=== PATIENT | male | born 1950 | race Caucasian/White ===

== ENCOUNTER 2023-11-08 02:59 | Inpatient (IN) | payer OTHER, SELFPAY ==
[2023-11-07 22:26] VITALS: BP 143/82
[2023-11-07 22:29] LABS: Glucose - Point of Care 160 mg/dl (70-99)
--- NOTE | 2023-11-07 22:38 | ED.GENMED ---
History of Present Illness
General
Chief Complaint: Breathing Problem
Source: patient and family
Exam Limitations: none
Time Seen by Provider: 11/07/23 22:36
Nursing documentation reviewed up to this point in time: agreed with
History of Present Illness
History of Present Illness:
73-year-old male presents the emergency room complaining of shortness of breath, an episode of diaphoresis. Son thought this may have been due to his sugar being low.
Past History
Past History
ED Past Medical History: HTN, Hypercholesterolemia, IDDM and Psychiatric (Depression)
ED Past Surgical History: Cardiac (Pacemaker) and Other (Stomach ulcer repair)
Social History
Tobacco: Former smoker
Alcohol: None
Drug: None
Living: with family
Review of Systems
Review of Systems
Allergies reviewed?: Yes
All Other Systems: Not applicable
Constitutional: Reports fever
EENT: Reports no symptoms
Respiratory: Reports trouble breathing
Cardiac: Reports diaphoresis
ABD/GI: Reports no symptoms
: Reports no symptoms
Musculoskeletal: Reports no symptoms
Skin: Reports no symptoms
Neurological: Reports no symptoms
Endocrine: Reports no symptoms
Hematologic/Lymphatic: Reports no symptoms
Psychiatric: Reports no symptoms
Phy Exam
Physical Exam
Physical Exam:
Physical Exam
General: afebrile
Neck: supple. no meningeal signs. normal posterior pharynx
Heart: s1/s2 regular rate and rhythm, no murmur. equal radial
pulses.
HEENT: Pupils equal round reactive to light, EOMI
Lungs: no acute respiratory distress. clear bilaterally
Abdomen: normal bowel sounds. not tender. no CVAT
Neuro: alert and oriented. no focal neurological deficits cranial nerves II through XII intact
Skin: no rash
Psychiatric: well kept. interactive and cooperative
Extremities: no edema. no calf tenderness. negative homans. good distal pulses
Scores
Heart Failure Risk
Heart Failure Risk Score: Not Applicable
Course
Orders/Labs/Results
Orders:
Orders
11/07/23 22:37
Electrocardiogram (*1) Stat
Reason for Study: Other
Other Reason for Exam: chest pain
Cardiac Monitoring- Treatment ONCE
EKG- Treatment ONCE
IV Insert/Care/Rem.- Treatment PRN
O2 Therapy [RESP] Stat
Nasal Cannula Liter Flow: 3 LPM
Titrate/Wean O2 to maintain O2 sat greater than (%): 92
Pulse Ox/cont/shift [RESP] Stat
Quantity: 1
11/07/23 22:38
CR Chest Portable - 1 View Urgent
Comment:
Reason For Exam: short of breath, hypoxia
Reason Study Needs to be Portable: Patient Unstable
11/07/23 23:07
COVID-19 Antigen Urgent
Source: Nasal Swab
Complete Blood Count/With Diff Urgent
Troponin I Urgent
11/08/23 00:27
Comprehensive Metabolic Panel Routine
Comment: REDRAW
Magnesium Routine
11/08/23 00:29
Ipratropium/Albuterol Sulfate [Duoneb] 3 ml INH R NOW STA
Abnormal Lab Results
11/07/23 11/07/23 11/08/23
22:28 23:07 00:27
WBC 11.2 H 10^3/uL
(4.8-10.8)
MPV 11.6 H fL
(7.4-10.4)
Absolute Neuts (auto) 8.5 H 10^3/uL
(1.4-6.5)
Absolute Monos (auto) 0.7 H 10^3/uL
(0.1-0.6)
Neutrophils % 76.1 H %
(42.2-75.2)
Lymphocytes % 17.1 L %
(20.5-51.1)
Sodium 134 L mmol/L
(135-145)
BUN 27 H mg/dl
(9-20)
Glucose 176 H mg/dl
(70-99)
ALT 66 H U/L
(0-50)
POC Glucose 160 H mg/dl
(70-99)
11/07/23 23:07
11/08/23 00:27
Vital Signs
Initial and Last Documented VS:
Initial Vital Signs
Temp Pulse Resp BP Pulse Ox
97.6 F 60 18 143/82 89
11/07/23 22:26 11/07/23 22:26 11/07/23 22:26 11/07/23 22:26 11/07/23 22:26
Last Documented Vital Signs
Temp Pulse Resp BP Pulse Ox
97.6 F 64 19 137/73 98
11/07/23 22:26 11/08/23 01:15 11/08/23 01:15 11/08/23 01:00 11/08/23 01:15
MDM/Problems Addressed
Differential Diagnosis Includes:
COPD exacerbation, pneumonia, CHF
MDM/Problems Addressed:
73-year-old male with hypoxia, suspect COPD. Doubt ACS or PE. Admit to hospitalist.
Chronic conditions affecting care: DM and HTN
Acute Exacerbation and/or Progression of Chronic Illness: DM and HTN
*Radiology
Radiology exam reviewed: preliminary read by ED provider (Chest x-ray no acute findings) and radiology read reviewed (Chest x-ray no acute findings)
*Pulse Oximetry
Patient hypoxic: yes
*EKG
Interpreted by ED Provider?: Yes
EKG Intrepretation Date: 11/08/23
EKG Intrepretation Time: 23:17
Interpretation: abnormal
Comparison EKG: changes noted
Heart Rate: 60
Rate: normal
Rhythm: av sequential
[place]: left axis deviation
Interval: normal interval
QRS Pattern: normal QRS
Ischemia: non-specific ST changes
*Dining Room Host/Hostess Interpretation
Rate: normal
Interpretation: abnormal
Heart Rate: 60
Rhythm: av sequential
*Critical Care Note
Total Time (30-74mins, 75-104mins- exclusive of procedures): 30
comment:
Critical care statement: A total of 30 minutes of critical care time was provided for this patient. This includes management of unstable vital signs, evaluation of the patient at bedside, reviewing the patient's pertinent medical records, discussion
with consultants, review of old EKGs and review of pertinent medical records. This time with separate from time utilized to perform the aforementioned documented procedures
Hypoxia, discussion with pacemaker rep and using pacemaker clinical statistical programmer
Data Reviewed
Review of Other/Old Records Reveals: Discharge Summary (Prior admission in 2021 for COVID and acute kidney injury)
Patient Management
Social determinants of health affecting care: Living situation
Discussion with other providers: Hospitalist and Other ([employer] cash applications representative)
Escalation/DeEscalation of care consider admission/obs:
Admit indicated
Update Note
Update Note:
Discussed with pacemaker rep and reviewed pacemaker clinical statistical programmer, no events, patient atrial paced, occasionally ventricular
ED Attending Note
-
Portions of this chart may have been created with voice recognition software.� Occasional wrong word or��sound alike� substitutions may have occurred due to the inherent limitations of voice recognition software.
Discharge Plan
Departure
Patient Disposition: Admit
Date of Disposition: 11/08/23
Time of Disposition: 01:28
Admit to: Telemetry
Presentation/result/management discussed w/ accepting MD/DO: Hospitalist
Patient with high blood pressure during this ER visit?: Yes
Condition: Good
Discharge Problem:
Acute exacerbation of chronic obstructive pulmonary disease (COPD), Hypoxia
Prescriptions:
No Action
atorvastatin 20 MG tablet
20 mg PO QPM
amiodarone [Pacerone] 200 MG tablet
200 mg PO DAILY
Patient Comments:
Daughter said 20 mg???
levothyroxine 75 MCG tablet
75 mcg PO DAILY
famotidine [Pepcid AC] 20 MG tablet
20 mg PO DAILY
pyridostigmine bromide 180 MG tablet extended release
180 mg PO DAILY
Patient Comments:
Daughter said 18???
insulin aspart U-100 [Novolog FlexPen U-100 Insulin] 300 UNITS/3 ML insulin pen
0 sliding scale dose SC AC
Patient Comments:
150-175 8 units; 176-200 12 units; 201-224 16 units; 225-250 20 units; 251-275 24 units; 276- 28 units
magnesium oxide 400 mg magnesium Tablet
400 mg PO BID Qty: 0
metoprolol succinate 100 mg tablet extended release 24 hr
100 mg PO BID
melatonin 3 mg Tablet
3 mg PO HS
potassium chloride 20 mEq tablet,ER particles/crystals
20 meq PO DAILY
oxybutynin chloride 5 mg tablet extended release 24hr
5 mg PO DAILY
escitalopram oxalate 10 mg tablet
10 mg PO DAILY
Xarelto 20 mg tablet
20 mg PO DAILY
Ozempic 1 mg/dose (4 mg/3 mL) pen injector
4 mg SC TU
midodrine 5 MG tablet
5 mg PO TID@0800,1300,1800
insulin glargine [Lantus Solostar U-100 Insulin] 300 UNITS/3 ML insulin pen
12 units SC HS
Referrals:
UNKNOWN - PT DOES,NOT KNOW [Family Provider] -
Interventions
Interventions:
*Risk Screen - Suicide Last Done: 11/07/23 23:30
*General Assessment Last Done: 11/07/23 22:27
*Neglect/Abuse Screening Last Done: 11/07/23 23:30
ED- Fall Risk Assessment Last Done: 11/07/23 23:10
*ED COVID-19 Vaccine History Last Done: 11/07/23 23:48
ED- Cardiac Assessment Last Done: 11/07/23 23:07
ED- Pulmonary Assessment Last Done: 11/07/23 23:09
Discharge Date and Time
Print Language: SYRIAN
[2023-11-07 23:11] VITALS: BP 136/79
[2023-11-07 23:17] VITALS: BMI 24.9
[2023-11-07 23:57] LABS: COVID-19 Antigen Negative (Negative)
[2023-11-07 23:59] LABS: % Basophils 0.1 % (0-2); % Eosinophils 0.4 % (0-6); % Immature Granulocytes 0.4 % (0-0.5); % Lymphocytes 17.1 % (20.5-51.1); % Monocytes 5.9 % (1.7-9.3); % Neutrophils 76.1 % (42.2-75.2); Absolute Eosinophils 0.1 10^3/uL (0-0.7); Absolute Lymphocytes 1.9 10^3/uL (1.2-3.4); Absolute Monocytes 0.7 10^3/uL (0.1-0.6); Absolute Neutrophils 8.5 10^3/uL (1.4-6.5); Hematocrit 40.4 % (39.0-52.0); Hemoglobin 14.5 g/dL (13.0-18.0); Mean Corp Hgb Conc. 35.9 g/dL (33.0-37.0); Mean Corpuscular Hgb 30.3 pg (27.0-31.0); Mean Corpuscular Volume 84.5 fL (80.0-94.0); Mean Platelet Volume 11.6 fL (7.4-10.4); Nucleated Red Blood Cells % 0 % (-); Platelet Count 188 10^3/uL (130-400); Red Blood Cell Count 4.78 10^6/uL (4.70-6.10); Red Cell Dist. Width 14.1 % (11.5-14.5); White Blood Cell Count 11.2 10^3/uL (4.8-10.8)
[2023-11-08] VITALS (12 sets, daily range): BP systolic 81–160; BP diastolic 58–83; PULSE 63–101; BMI 23.8
[2023-11-08 00:28] LABS: Troponin I < 0.012 ng/ml
[2023-11-08] MEDS: DUONEB 3 ML INH ×6 (00:36→19:27)
[2023-11-08 01:13] LABS: ALT (SGPT) 66 U/L (0-50); AST (SGOT) 40 U/L (17-59); Albumin 3.8 g/dl (3.5-5.0); Alkaline Phosphatase 86 U/L (38-126); Blood Urea Nitrogen 27 mg/dl (9-20); Calcium 9.2 mg/dl (8.4-10.2); Carbon Dioxide 22 mmol/L (22-30); Chloride 105 mmol/L (98-107); Estimated Creatinine Clearance 53 ml/min; Glucose 176 mg/dl (70-99); Magnesium 1.8 mg/dl (1.6-2.3); Potassium 4.5 mmol/L (3.5-5.1); Sodium 134 mmol/L (135-145); Total Bilirubin 0.7 mg/dl (0.2-1.3); Total Protein 6.5 g/dl (6.3-8.2); eGFR > 60.00
--- NOTE | 2023-11-08 02:36 | HPS.HSE ---
Family Physician
-
Family Physician: NOT KNOW UNKNOWN - PT DOES
Chief Complaint
-
Low BG at home , Hypoxia at ER
History of Present Illness
73M Filipino speaker, with Son who trasnlates HX IDDM, Hypothyroid, HTN seen at ER for evalaution of hypoglycemia ;
- BG dropped to 70s
- report normal Insulin before dinner with Ozempic or Mounjaro
- At ER, BG was 160
Noted POx 89 % on RA
- report SoB at ER
- POx 93 on 3L
- Cough
- SoB
Medical History
Past Medical History
Past Medical History: Reports Other
Additional Past Medical History:
IDDM
Hypothyroidism.
Essential hypertension.
Myasthenic gravis
Anxiety/ Depression.
Hyperlipidemia.
Gastroesophageal reflux disease.
Past Surgical History: Reports Cardiac (pacemaker ) and Other (gastric ulcer repair)
Social History
Tobacco: Former Smoker
Alcohol: None
Living: With Family
Family History
Family History: Not pertinent
Allergies / Home Medications
Allergies reflects when Allergies were last updated in [employer].
Home Medications with original date entered in [employer]
Allergy/Medication List:
Allergies
Allergy/AdvReac Type Severity Reaction Status Date / Time
No Known Allergies Allergy Unverified 05/25/21 14:04
Home Medications
amiodarone 200 mg tablet (Pacerone) 200 mg PO DAILY Heart disease/condition 05/25/21
atorvastatin 20 mg tablet 20 mg PO QPM High cholesterol 05/25/21
famotidine 20 mg tablet (Pepcid AC) 20 mg PO DAILY Gastrointestinal issue 05/25/21
insulin aspart U-100 100 unit/mL (3 mL) subcutaneous pen (Novolog FlexPen U-100 Insulin aspart) 0 sliding scale dose SC AC Diabetes 05/25/21
levothyroxine 75 mcg tablet 75 mcg PO DAILY Thyroid 05/25/21
magnesium oxide 400 mg PO BID Supplement ##0 05/25/21
pyridostigmine bromide 180 mg tablet,extended release 180 mg PO DAILY 05/25/21
escitalopram oxalate 10 mg tablet 10 mg PO DAILY 11/07/23
insulin glargine 100 unit/mL (3 mL) subcutaneous pen (Lantus Solostar U-100 Insulin) 12 units SC HS Diabetes 11/07/23
melatonin 3 mg tablet 3 mg PO HS 11/07/23
metoprolol succinate 100 mg tablet,extended release 24 hr 100 mg PO BID 11/07/23
midodrine 5 mg tablet 5 mg PO TID@0800,1300,1800 11/07/23
oxybutynin chloride 5 mg tablet,extended release 24 hr 5 mg PO DAILY 11/07/23
potassium chloride 20 mEq tablet,extended release(part/cryst) 20 meq PO DAILY 11/07/23
rivaroxaban 20 mg tablet (Xarelto) 20 mg PO DAILY 11/07/23
semaglutide 1 mg/dose (4 mg/3 mL) subcutaneous pen injector (Ozempic) 4 mg SC TU 11/07/23
Review of Systems
-
Constitutional: Reports No Symptoms
EENT: Reports No Symptoms, See HPI and Other (POx 89 on RA )
Cardiac: Reports No Symptoms
Abdomen/GI: Reports No Symptoms
: Reports No Symptoms
Musculoskeletal: Reports No Symptoms
Skin: Reports No Symptoms
Neurological: Reports No Symptoms
Endocrine: Reports See HPI and Other (BG in 70 at home )
Hematologic/Lymphatic: Reports No Symptoms
Psych: Reports No Symptoms
Physical Exam
Vital Signs
Vital Signs
Temp Pulse Resp BP Pulse Ox
97.6 F 64 19 137/73 98
11/07/23 22:26 11/08/23 01:15 11/08/23 01:15 11/08/23 01:00 11/08/23 01:15
Physical Exam
General: Well Developed, Well Nourished and No Apparent Distress
HEENT: NormoCephalic, Moist mucous membranes and Atraumatic
Respiratory: Clear
Cardiac: S1/S2 and Regular Rhythm; No Murmur or Rub
GI: Soft, Non Tender, Non Distended and Normal Bowel Sounds; No Organomegaly
Rectal: Deferred by Provider
Musculoskeletal: No Clubbing, No Cyanosis and No Edema
Skin: No Rash
Neuro: Nonfocal/grossly intact
Laboratory Results
-
11/07/23 23:07
11/08/23 00:27
Laboratory Results
Total Bilirubin 0.7 mg/dl (0.2-1.3) 11/08/23 00:27
AST 40 U/L (17-59) 11/08/23 00:27
ALT 66 U/L (0-50) H 11/08/23 00:27
Alkaline Phosphatase 86 U/L (38-126) 11/08/23 00:27
Troponin I < 0.012 ng/ml 11/07/23 23:07
Data Reviewed
-
Diagnostic Radiology: Report Reviewed by me
Medical Tests (Nuc Med, Echo, EKG etc): Report Reviewed by me
Lab Data: Labs Reviewed by me
Old Records: Reviewed
Impression/Plan
-
Reviewed VS: Afebrile HR 60 Normotensive RR 19 POx 89 on RA --> 93 on 3 L
Data
WCC 11.2
Na 134
BUN 27
Cr 1.2
eGFR > 60
BG 176
ALT 66
NEG TPNI
NEG Covid
CXR
No acute cardiopulmonary process.
EKG report
AV paced rhythm
LEFT AXIS DEVIATION
NON-SPECIFIC INTRA-VENTRICULAR CONDUCTION BLOCK
MINIMAL VOLTAGE CRITERIA FOR LVH, MAY BE NORMAL VARIANT ( Rubio product )
NONSPECIFIC T WAVE ABNORMALITY
ABNORMAL ECG
WHEN COMPARED WITH ECG OF 25-MAY-2021 14:19,
ELECTRONIC ATRIAL PACEMAKER HAS REPLACED SINUS RHYTHM
QRS DURATION HAS DECREASED
T WAVE INVERSION NO LONGER EVIDENT IN ANTERIOR LEADS
QT HAS SHORTENED
Last hospitalist admission: 05/25/21 - 06/01/21 PDxs:
1. Hypothermia, non anion gap metabolic acidosis and dizziness secondary to hypoglycemia due to decreased oral intake from COVID infection and concurrent insulin use.
2. Acute hypoxemic respiratory failure due to COVID pneumonia in an unvaccinated host.
3. Orthostatic hypotension.
4. Acute kidney injury.
5. Mild hyponatremia.
6. Hyperkalemia due to potassium supplementation.
ASSESSMENT & PLAN
Acute hypoxic RI of uncertain etiology : DEVAN ?
- clinically not bronchospastic
- unremarkable CXR
- NEG Covid
- NEG TPNI
- check pro BNP
- Cont DuoNeb qid and PRN
- No definitive indication for Steroids
Hypoglycemia at Home
BG 160 at ER
- cont CONCRETE FLOATER Lantus/Aspart
- Held Ozempic
- add ISS low
HLD on Atorvastatin
Hypothyroidism
-Continue levothyroxine
HX essential Hypertension
AV paced rhythm
- cont Amiodarone and Metoprolol
HX Myasthenia Gravis on Pyridostigmine
Midodrine dependent chr hypotension
DVT Px: on Xarelto
Code: full code
IP TLM
[2023-11-08 04:07] LABS: Glucose - Point of Care 141 mg/dl (70-99)
[2023-11-08] MEDS: SYNTHROID 75 MCG PO (04:28)
--- NOTE | 2023-11-08 04:30 | PTCARENOTE ---
Received patient from ED via stretcher. Patient ambulated from stretcher to bed with assistance. Patient is primarily Argentine speaking, able to complete admission with language line scowman. AAOx2, patient stated it was October and that he did not
know the year. No current complaints of pain. Oriented patient to room and placed call wiggins within reach.
[2023-11-08 07:18] LABS: Glucose - Point of Care 169 mg/dl (70-99)
[2023-11-08] MEDS: PEPCID 20 MG PO (09:08)
[2023-11-08] MEDS: MESTINON 60 MG PO ×3 (09:08→21:49)
[2023-11-08] MEDS: LEXAPRO 10 MG PO (09:09)
[2023-11-08] MEDS: TOPROL XL 100 MG PO ×2 (09:09→20:11)
[2023-11-08] MEDS: PACERONE 200 MG PO (09:10)
[2023-11-08] MEDS: XARELTO 20 MG PO (10:27)
[2023-11-08] MEDS: ProAmatine 5 MG PO ×3 (10:27→17:00)
[2023-11-08] MEDS: NOVOLOG FLEXPEN-LOW RESISTANCE 1 UNITS SC (10:28)
[2023-11-08 10:56] LABS: Hematocrit 47.3 % (39.0-52.0); Hemoglobin 15.8 g/dL (13.0-18.0); Mean Corp Hgb Conc. 33.4 g/dL (33.0-37.0); Mean Corpuscular Hgb 29.3 pg (27.0-31.0); Mean Corpuscular Volume 87.8 fL (80.0-94.0); Mean Platelet Volume 12.2 fL (7.4-10.4); Platelet Count 223 10^3/uL (130-400); Red Blood Cell Count 5.39 10^6/uL (4.70-6.10); White Blood Cell Count 11.5 10^3/uL (4.8-10.8)
--- NOTE | 2023-11-08 11:27 | W.PN.UPDATE ---
Update Note
Progress Note Update
Acute hypoxic RI of uncertain etiology : DEVAN ?, former smoker, no wheezing on exam
- clinically not bronchospastic
- unremarkable CXR
- NEG Covid
- NEG TPNI
- check pro BNP
- Cont DuoNeb qid and PRN
- Pulm consulted
- STOP Bank at least 4 (male, age, neck circx, htn) will need to follow up with sleep medicine on dc.
- Can consider checking an overnight pulse ox
Fall, was dizzy
- Likely related to hypoglycemia
- EKG Atrial paced
- Check orthostatics
- Head strike +, no focal neuro defecits
- Check CT brain to r/o bleed as on AC
Hypoglycemia at Home
BG 160 at ER
- cont MANAGER BILINGUAL Lantus/Aspart
- Held Ozempic
- add ISS low
HLD on Atorvastatin
Hypothyroidism
-Continue levothyroxine
HX essential Hypertension
AV paced rhythm
- cont Amiodarone and Metoprolol
HX Myasthenia Gravis on Pyridostigmine
Midodrine dependent chr hypotension
--- NOTE | 2023-11-08 11:28 | CON.PUL ---
Consultation
Consultation Request
Date/Time Consultation Requested: 11/07
Date/Time Consultation Performed: 11/07
Reason for Consultation: hypoxia
Medical History
-
History of Present Illness:
73-year-old [place]ian male with history of coronary disease, DE, atrial fibrillation on Xarelto therapy, diabetes, presents with lethargy and found to have blood sugar of 70. He typically lives in [facility] and sees his physicians in
[place]. However he was staying with his son locally and was brought to [facility]. Upon arrival, he was afebrile, pulse 60, breathing at 16-18, blood pressure 143/82, 89%. ED records reviewed and the ED exam was normal. He was
admitted for hypoxia and acute COPD exacerbation. We are asked to see him because of hypoxia. Patient denies any shortness of breath, chest pain, cough, lightheadedness, dizziness. His son was also able to provide history by phone and confirm the
above. He has never been on oxygen. He has seen a spikemaking supervisor in the past but sees them every couple years and has had routine x-rays. Son cannot recall why he is seeing the pulmonary doctor. Patient also sees cardiology in the city.
.
PMH: Diabetes, hypertension, hyperlipidemia, history of coronary disease with heart attack, atrial fibrillation on anticoagulation, history of pacemaker. History of hypothyroidism, myasthenia gravis, GERD
Past Medical History
Past Medical History: None (See above)
Past Surgical History: None (See above)
Social History
Tobacco: Former Smoker ([id number], quit 20+ years ago)
Alcohol: None
Drug: None
Personal:
Living: With Family
Employment: Retired (Worked in a [employer] in [place]. [place] been [place] the [place] 19 years)
Family History
Family History: Other (Negative for lung disease, blood clots, lung cancer)
Allergies / Home Medications
Allergies
Allergy/AdvReac Type Severity Reaction Status Date / Time
No Known Allergies Allergy Unverified 05/25/21 14:04
Home Medications
�Medication �Instructions �Recorded �Confirmed �Last Taken �Type
amiodarone 200 mg tablet (Pacerone) 200 mg PO DAILY Heart 05/25/21 11/07/23 Unknown History
disease/condition
atorvastatin 20 mg tablet 20 mg PO QPM High cholesterol 05/25/21 11/07/23 Unknown History
famotidine 20 mg tablet (Pepcid AC) 20 mg PO DAILY Gastrointestinal 05/25/21 11/07/23 Unknown History
issue
insulin aspart U-100 100 unit/mL 0 sliding scale dose SC AC Diabetes 05/25/21 11/07/23 Unknown History
(3 mL) subcutaneous pen (Novolog
FlexPen U-100 Insulin aspart)
levothyroxine 75 mcg tablet 75 mcg PO DAILY Thyroid 05/25/21 11/07/23 Unknown History
magnesium oxide 400 mg PO BID Supplement ##0 05/25/21 11/07/23 Unknown History
pyridostigmine bromide 180 mg 180 mg PO DAILY myasthenia gravis 05/25/21 11/07/23 Unknown History
tablet,extended release
escitalopram oxalate 10 mg tablet 10 mg PO DAILY Depression 11/07/23 11/07/23 Unknown History
insulin glargine 100 unit/mL (3 12 units SC HS Diabetes 11/07/23 11/07/23 Unknown History
mL) subcutaneous pen (Lantus
Solostar U-100 Insulin)
melatonin 3 mg tablet 3 mg PO HS Sleep 11/07/23 11/07/23 Unknown History
metoprolol succinate 100 mg 100 mg PO BID Blood Pressure 11/07/23 11/07/23 Unknown History
tablet,extended release 24 hr
midodrine 5 mg tablet 5 mg PO TID@0800,1300,1800 Blood 11/07/23 11/07/23 Unknown History
Pressure
oxybutynin chloride 5 mg 5 mg PO DAILY Urinary Issue 11/07/23 11/07/23 Unknown History
tablet,extended release 24 hr
potassium chloride 20 mEq 20 meq PO DAILY Electrolyte 11/07/23 11/07/23 Unknown History
tablet,extended release(part/cryst) Repletion
rivaroxaban 20 mg tablet (Xarelto) 20 mg PO DAILY Blood Clot 11/07/23 11/07/23 Unknown History
Prevention/Tx
semaglutide 1 mg/dose (4 mg/3 mL) 4 mg SC TU Diabetes 11/07/23 11/07/23 11/06/23 History
subcutaneous pen injector (Ozempic)
Review of Systems
-
History Source: Family
All other systems: Negative unless noted (Through court interpreter)
Vitals / Labs / Diagnostic Testing
Vital Signs
Temp Pulse Resp BP Pulse Ox
97.9 F 78 18 129/83 93
11/08/23 07:35 11/08/23 09:09 11/08/23 07:40 11/08/23 09:09 11/08/23 11:19
Lab Data
11/08/23 10:20
Diagnostic Testing:
Physical Exam
-
HEENT: Normocephalic and Anicteric
Cardiovascular: S1/S2, Irregular Rhythm, Murmur (n), Rub (n), Peripheral Edema (n) and Calf Tenderness (n)
Respiratory: Wheeze (n), Rales (Mild bibasilar), Rhonchi (n) and Non-Labored Respirations
GI: Soft, Non Distended and Non Tender
Neurology: Awake, Alert and No Motor Deficits (Observed ambulating from the stretcher to the bed without difficulty)
Skin: Other (Few scattered bruises, no clubbing or cyanosis)
General: Comfortable
Assessment
-
73-year-old male with history of diabetes, atrial fibrillation on anticoagulation, coronary disease, smoking history presents with lethargy, found to have a blood sugar of 70 at home. We are asked to comment on patient's hypoxia
Acute hypoxic respiratory insufficiency, 88% room air
Mild crackles on exam
Possible interstitial changes per chest x-ray (my review)
Questionable diaphragmatic calcification (my review)
Hypoglycemia, blood sugar 70
Was 160 in the ED
History of atrial fibrillation on Xarelto
On amiodarone therapy
Recent fall
Conditions present prior to admission
History of myasthenia gravis (details unclear)
Hypertension/hyperlipidemia
Diabetes
Hypothyroidism
History of atrial fibrillation
Pacemaker in place
History of coronary disease, DE (per son)
GERD with gastric ulcer repair in the past (details unclear)
30+ pack-year history of smoking, quit around 2003
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
Plans/Recs
At this time, patient appears to be comfortable and is without complaints. Son denies any issues with shortness of breath, cough, wheezing. Apparently patient has seen pulmonary in the past in [place] but for unclear reasons. Smoking history
noted. Patient not on any inhalers.
Noted to be hypoxic requiring oxygen, 88% on room air
Mild crackles on exam noted. Chest x-ray per my review suggests mild interstitial disease with possible diaphragmatic calcifications
There may be an occupational exposure history
Moving forward
Given lack of symptoms, workup can be deferred as outpatient
Given that he is on amiodarone therapy, we will check full PFT
Will try to coordinate if possible in the next day or 2 with Zambian speaking respiratory therapist
If not able to get full PFT, will consider spirometry.
Will require full PFT and likely outpatient CT chest at some point given crackles, hypoxia and amiodarone therapy
Check ambulatory saturation
Of note, head CT without acute findings
Patient will require PT/OT evaluation
Reviewed with patient, also reviewed with son by phone
We will follow
[2023-11-08 11:52] LABS: Glucose - Point of Care 270 mg/dl (70-99)
[2023-11-08 11:56] LABS: NT-proBNP 536 pg/ml
[2023-11-08 12:05] LABS: Blood Urea Nitrogen 23 mg/dl (9-20); Carbon Dioxide 26 mmol/L (22-30); Chloride 98 mmol/L (98-107); Estimated Creatinine Clearance 58 ml/min; Glucose 205 mg/dl (70-99); Potassium 4.7 mmol/L (3.5-5.1); Sodium 135 mmol/L (135-145); eGFR > 60.00
[2023-11-08] MEDS: KCL 20 MEQ PO (12:56)
[2023-11-08] MEDS: NOVOLOG FLEXPEN-LOW RESISTANCE 3 UNITS SC ×2 (12:56→17:01)
[2023-11-08 14:02] LABS: Glycohemoglobin (HgbA1c) 8.3 % (4.0-5.6)
[2023-11-08] MEDS: FLOMAX 0.4 MG PO (16:28)
[2023-11-08 16:40] LABS: Glucose - Point of Care 260 mg/dl (70-99)
[2023-11-08] MEDS: LIPITOR 20 MG PO (17:00)
[2023-11-08 21:20] LABS: Glucose - Point of Care 231 mg/dl (70-99)
[2023-11-08] MEDS: MELATONIN 3 MG PO (21:49)
[2023-11-08] MEDS: LANTUS 0.06 UNITS SC (21:49)
[2023-11-09] VITALS (7 sets, daily range): BP systolic 77–120; BP diastolic 52–70; PULSE 61–77; BMI 23.7
[2023-11-09] MEDS: SYNTHROID 75 MCG PO (06:07)
[2023-11-09] MEDS: DUONEB 3 ML INH ×4 (07:42→19:27)
[2023-11-09 08:08] LABS: Glucose - Point of Care 183 mg/dl (70-99)
[2023-11-09] MEDS: NOVOLOG FLEXPEN-LOW RESISTANCE 1 UNITS SC (08:34)
[2023-11-09] MEDS: XARELTO 20 MG PO (08:34)
[2023-11-09] MEDS: ProAmatine 5 MG PO ×3 (08:36→17:24)
[2023-11-09] MEDS: KCL 20 MEQ PO (08:37)
[2023-11-09] MEDS: FLOMAX 0.4 MG PO (08:37)
[2023-11-09] MEDS: PACERONE 200 MG PO (08:37)
[2023-11-09] MEDS: PEPCID 20 MG PO (08:37)
[2023-11-09] MEDS: MESTINON 60 MG PO ×3 (08:37→21:28)
[2023-11-09] MEDS: LEXAPRO 10 MG PO (08:37)
[2023-11-09] MEDS: TOPROL XL PO (08:42)
--- NOTE | 2023-11-09 11:45 | W.PN.HOSP.TC ---
Today's Communication/Plan
-
Overnight pulse oximetry
Exercise pulse oximetry on room air
If less than 88% then will need home oxygen
Will need outpatient pulmonary follow-up for PFTs and cardiology follow-up determination depending on PFT findings in terms of the amio
Assessment / Plan
Assessment / Plan
Acute hypoxic RI of uncertain etiology : DEVAN ?, former smoker, no wheezing on exam
-Potentially amiodarone induced lung fibrosis. Will need outpatient PFTs to make this diagnosis per pulmonary. Will continue amiodarone for now though until it can be confirmed
- clinically not bronchospastic
- unremarkable CXR
- NEG Covid
- NEG TPNI
- check pro BNP
- Cont DuoNeb qid and PRN
- Pulm consulted
- STOP Bank at least 4 (male, age, neck circx, htn) will need to follow up with sleep medicine on dc.
- Can consider checking an overnight pulse ox
Fall, was dizzy
- Likely related to hypoglycemia
- EKG Atrial paced
- Check orthostatics
- Head strike +, no focal neuro defecits
- Check CT brain to r/o bleed as on AC
Hypoglycemia at Home
BG 160 at ER
- cont TEST ENGINEERING MANAGER Lantus/Aspart
- Held Ozempic
- add ISS low
HLD on Atorvastatin
Hypothyroidism
-Continue levothyroxine
HX essential Hypertension
AV paced rhythm
- cont Amiodarone and Metoprolol
HX Myasthenia Gravis on Pyridostigmine
Midodrine dependent chr hypotension
Anticipated Discharge: 24 - 48 hours
Subjective/Interval History
-
Date of Service: November 09, 2023
Seen and examined. No new complaints. No acute overnight events.
Resting bed comfortably. Shortness of breath improving.
Per nursing overnight was 95% for most of the night. However this morning dropped down to 86% and now is back on 2 L nasal cannula at a SpO2 of 94%.
Objective Data
-
Vital Signs:
Vital Signs
Temp Pulse Resp BP Pulse Ox
97.9 F 63 18 96/62 95
11/09/23 11:35 11/09/23 11:35 11/09/23 11:35 11/09/23 11:35 11/09/23 11:35
I&O
11/08/23 11/09/23 11/10/23
06:59 06:59 06:59
Intake Total 480 / 480 1080 / 1080
Output Total 325 / 325 720 / 720
Balance 155 / 155 360 / 360
[2023-11-09 11:58] LABS: Glucose - Point of Care 224 mg/dl (70-99)
[2023-11-09] MEDS: NOVOLOG FLEXPEN-LOW RESISTANCE 2 UNITS SC ×2 (12:50→17:24)
--- NOTE | 2023-11-09 16:12 | W.PN.PUL3 ---
Today's Communication / Plan
-
Check full PFT on 11/10 (with Wilma, resp therapist, speaks [place]ayan)
Check nocturnal oximetry
Will likely require home oxygen at time of discharge
Outpatient pulmonary follow-up
Assessment
-
73-year-old male with history of diabetes, atrial fibrillation on anticoagulation, coronary disease, smoking history presents with lethargy, found to have a blood sugar of 70 at home. We are asked to comment on patient's hypoxia
Acute hypoxic respiratory insufficiency, 88% room air
Mild crackles on exam
Possible interstitial changes per chest x-ray (my review)
Questionable diaphragmatic calcification (my review)
Hypoglycemia, blood sugar 70
Was 160 in the ED
History of atrial fibrillation on Xarelto
On amiodarone therapy
Recent fall
Conditions present prior to admission
History of myasthenia gravis (details unclear)
Hypertension/hyperlipidemia
Diabetes
Hypothyroidism
History of atrial fibrillation
Pacemaker in place
History of coronary disease, [place] (per son)
GERD with gastric ulcer repair in the past (details unclear)
30+ pack-year history of smoking, quit around 2003
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
Plans/Recs
At this time, patient appears to be comfortable and is without complaints. Son denies any issues with shortness of breath, cough, wheezing. Apparently patient has seen pulmonary in the past in [place] but for unclear reasons. Smoking history
noted. Patient not on any inhalers.
Noted to be hypoxic requiring oxygen, 88% on room air
Ambulatory saturation after ambulating 25 feet 88%
Mild crackles on exam noted. Chest x-ray per my review suggests mild interstitial disease with possible diaphragmatic calcifications
There may be an occupational exposure history
Chest exam is slightly improved today
He does qualify for home oxygen
Moving forward
Given lack of symptoms, workup can be deferred as outpatient
Given that he is on amiodarone therapy, we will check full PFT
Will try to coordinate if possible in the next day or 2 with [place] speaking respiratory therapist
If not able to get full PFT, will consider spirometry.
Will require full PFT and likely outpatient CT chest at some point given crackles, hypoxia and amiodarone therapy
Check ambulatory saturation, 88% on RA
nocturnal oximetry
Of note, head CT without acute findings
Patient will require PT/OT evaluation
Subjective Data
-
Date of Service:
Date of Service: November 09, 2023
Subjective:
Patient is without complaints. Feels breathing has improved. Has mild cough but no chest pain
Objective Data
Data Reviewed
Vital Signs / I&O / Oxygen:
Vital Signs
Temp Pulse Resp BP Pulse Ox
97.9 F 60 14 119/64 97
11/09/23 11:35 11/09/23 15:25 11/09/23 15:25 11/09/23 12:52 11/09/23 15:25
Intake and Output
11/08/23 11/09/23 11/10/23
06:59 06:59 06:59
Intake Total 480 / 480 1080 / 1080
Output Total 325 / 325 720 / 720
Balance 155 / 155 360 / 360
SaO2 97
Nasal Cannula flow liters per 1
minute
Physical Exam
General: Comfortable
HEENT: Normocephalic and Anicteric
Cardiovascular: S1-S2, Regular Rhythm, Murmur (n) and Rub (n)
Respiratory: Wheeze (n), Crackles (Minimal right base), Rhonchi (n), Non-Labored Respirations and Stridor (n)
GI: Soft, Non Distended and Non Tender
Neurology: Awake, Alert and No Motor Deficits (Able to sit up without assistance)
Skin: Jaundice (n) and Rash (n)
Labs/Micro/Reports
Lab Data
11/08/23 10:20
11/08/23 10:20
Microbiology
11/08/23 10:13 Nose MRSA Screen - Final
No Methicillin Resistant Staphylococcus aureus isolated.
[2023-11-09 17:24] LABS: Glucose - Point of Care 204 mg/dl (70-99)
[2023-11-09] MEDS: LIPITOR 20 MG PO (17:24)
[2023-11-09] MEDS: TOPROL XL 100 MG PO (20:18)
[2023-11-09 21:14] LABS: Glucose - Point of Care 195 mg/dl (70-99)
[2023-11-09] MEDS: LANTUS 0.06 UNITS SC (21:27)
[2023-11-09] MEDS: MELATONIN 3 MG PO (21:28)
[2023-11-09] MEDS: TYLENOL 650 MG PO (23:16)
[2023-11-10] VITALS (7 sets, daily range): BP systolic 69–132; BP diastolic 46–82; PULSE 61–76; BMI 23.8
[2023-11-10] MEDS: SYNTHROID 75 MCG PO (04:04)
[2023-11-10] MEDS: DUONEB 3 ML INH ×4 (07:30→20:16)
[2023-11-10 07:37] LABS: Glucose - Point of Care 207 mg/dl (70-99)
[2023-11-10] MEDS: NOVOLOG FLEXPEN-LOW RESISTANCE 2 UNITS SC ×3 (08:33→18:34)
[2023-11-10] MEDS: FLOMAX 0.4 MG PO (08:35)
[2023-11-10] MEDS: ProAmatine 5 MG PO ×3 (08:35→18:34)
[2023-11-10] MEDS: KCL 20 MEQ PO (08:36)
[2023-11-10] MEDS: TOPROL XL 100 MG PO ×2 (08:36→20:39)
[2023-11-10] MEDS: XARELTO 20 MG PO (08:37)
[2023-11-10] MEDS: PEPCID 20 MG PO (08:37)
[2023-11-10] MEDS: LEXAPRO 10 MG PO (08:37)
[2023-11-10] MEDS: MESTINON 60 MG PO ×3 (08:37→21:32)
[2023-11-10] MEDS: PACERONE 200 MG PO (08:37)
[2023-11-10 11:29] LABS: Glucose - Point of Care 246 mg/dl (70-99)
--- NOTE | 2023-11-10 12:49 | W.PN.PUL3 ---
Today's Communication / Plan
-
Check full PFT on 11/10 (with Wilma, resp therapist, speaks Irish)
Continue DuoNebs with prn doses in between
Will likely require home oxygen at time of discharge
Outpatient pulmonary follow-up
Assessment
-
73-year-old male with history of diabetes, atrial fibrillation on anticoagulation, coronary disease, smoking history presents with lethargy, found to have a blood sugar of 70 at home. We are asked to comment on patient's hypoxia
Acute hypoxic respiratory insufficiency, 88% room air, now 96% on 3L/min NC
Mild crackles on exam
Possible interstitial changes per chest x-ray
Questionable diaphragmatic calcification
Hypoglycemia, blood sugar 70
Was 160 in the ED
History of atrial fibrillation on Xarelto
On amiodarone therapy
Recent fall
Conditions present prior to admission
History of myasthenia gravis (details unclear)
Hypertension/hyperlipidemia
Diabetes
Hypothyroidism
History of atrial fibrillation
Pacemaker in place
History of coronary disease, [place] (per son)
GERD with gastric ulcer repair in the past (details unclear)
30+ pack-year history of smoking, quit around 2003
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
Plans/Recs
At this time, patient appears to be comfortable and is without complaints. Per Dr. Castillo, son denies any issues with shortness of breath, cough, wheezing. Apparently patient has seen pulmonary in the past in [place] but for unclear reasons.
Smoking history noted. Patient not on any inhalers.
Noted to be hypoxic requiring oxygen, 88% on room air
Ambulatory saturation after ambulating 25 feet 88%
Mild crackles on exam noted per Dr. Castillo, now with coarse BS heard b/l/. Chest x-ray per my review suggests mild interstitial disease with possible diaphragmatic calcifications
There may be an occupational exposure history
He does qualify for home oxygen
Moving forward
Given lack of symptoms, workup can be deferred as outpatient
Given that he is on amiodarone therapy, we will check full PFT - pending tomorrow with Irish speaking respiratory therapist
If not able to get full PFT, will consider spirometry.
Will require full PFT and likely outpatient CT chest at some point given crackles, hypoxia and amiodarone therapy
Check ambulatory saturation, 88% on RA
nocturnal oximetry WNL overnight from 11/08 - 11/10/2023 with time SpO2 <89% of 1 min, 14 seconds
Of note, head CT without acute findings
Patient will require PT/OT evaluation
We will continue to follow.
Total time spent today was 35 minutes for this encounter. Time includes reviewing laboratory test/imaging results, reviewing pertinent medical records, obtaining and reviewing medical history, performing an appropriate exam, ordering medications,
tests and procedures. Time also includes documentation of this encounter, coordinating patient care and communicating with other healthcare professionals. Total time does not include separately billed tests performed on this date of service.
Subjective Data
-
Date of Service:
Date of Service: November 10, 2023
Chief Complaint: Pulmonary Follow Up
Subjective:
NOX done yesterday showing no need for O2 with sleep (SpO2 <89% 1 min, 14 secs). PFT pending for tomorrow. He is on 3 L/min nasal cannula currently in no acute distress. Currently denies headache, chest pain, fevers or chills.
Review of Systems
General: Other (Negative unless mentioned above)
Objective Data
Data Reviewed
Vital Signs / I&O / Oxygen:
Vital Signs
Temp Pulse Resp BP Pulse Ox
98.2 F 72 16 121/67 96
11/10/23 11:12 11/10/23 12:20 11/10/23 11:21 11/10/23 12:20 11/10/23 12:14
Intake and Output
11/09/23 11/10/23 11/11/23
06:59 06:59 06:59
Intake Total 1080 / 1080 1320 / 1320
Output Total 720 / 720 250 / 250
Balance 360 / 360 1070 / 1070
SaO2 96
Nasal Cannula flow liters per 2
minute
Physical Exam
General: Respiratory Distress (Negative) and Comfortable
HEENT: Normocephalic and Anicteric
Cardiovascular: S1-S2, Murmur (n), Rub (n) and Peripheral Edema (Negative)
Respiratory: Wheeze (n), Rhonchi (n), Non-Labored Respirations, Stridor (n) and Other (Coarse breath sounds heard bilaterally)
GI: Soft, Non Distended, Non Tender and Normal Bowel Sounds
Neurology: Awake, Alert and No Motor Deficits (Able to sit up without assistance)
Skin: Warm, Dry, Jaundice (n) and Rash (n)
Labs/Micro/Reports
Lab Data
11/08/23 10:20
11/08/23 10:20
Microbiology
11/08/23 10:13 Nose MRSA Screen - Final
No Methicillin Resistant Staphylococcus aureus isolated.
[2023-11-10] MEDS: LASIX 20 MG IV (14:44)
[2023-11-10 16:50] LABS: Glucose - Point of Care 252 mg/dl (70-99)
--- NOTE | 2023-11-10 16:51 | CM ---
biodiesel operations manager reviewed patient's chart and met with patient and patient lives with his spouse in [facility] in a 3 story home with 5 steps to enter, patient reports he is independent with adl's and uses a walker occasionally with
ambulation, patient did not require oxygen at home, per son patient visiting nurses in past and patient may benefit from VN services again, patient needs home oxygen evaluation.
PCP: Dr. Cali
Plan; Home with spouse, needs home oxygen evaluation and possibly home care at discharge.
--- NOTE | 2023-11-10 17:47 | W.PN.HOSP.TC ---
Today's Communication/Plan
-
Lasix 20 mg IV.
Attempt to wean off oxygen baseline
Increase activity
Assessment / Plan
Assessment / Plan
Impression:*
Acute hypoxic respiratory insufficiency with pulse ox of 88% on room air.
? CHF/preserved EF with mild pulmonary edema/vascular congestion on chest x-ray.
Symptomatic hypoglycemia blood glucose of 70 upon presentation.
Paroxysmal atrial fibrillation
Anticoagulation with Xarelto
Conditions prior to admission:
Myasthenia gravis?
Essential hypertension
Dyslipidemia
IDDM.
Hypothyroidism on replacement.
Paroxysmal atrial fibrillation/sick sinus syndrome with pacemaker in place.
CAD with history of [place]
GERD.
Former smoker 30+ year
Occupational exposure
Plan
Acute hypoxic RI of uncertain etiology : DEVAN ?, former smoker, no wheezing on exam
-Potentially amiodarone induced lung fibrosis. Will need outpatient PFTs to make this diagnosis per pulmonary. Will continue amiodarone for now though until it can be confirmed
- clinically not bronchospastic
-Chest x-ray with mild congestion
-Mildly elevated pro CHF BNP.
Echocardiogram 11/09: Normal biventricular size and systolic function without regional wall motion abnormalities
Dilated aortic root at 4.9 cm.
Given all of above will provide single dose of IV Lasix and 40 mg with attempt to wean off O2
- NEG Covid
- NEG TPNI
- Cont DuoNeb qid and PRN
- STOP Bank at least 4 (male, age, neck circx, htn) will need to follow up with sleep medicine on dc.
- Can consider checking an overnight pulse ox
Fall, was dizzy
- Likely related to hypoglycemia
- EKG Atrial paced
- Check orthostatics
- Head strike +, no focal neuro defecits
- Check CT brain to r/o bleed as on AC
Hypoglycemia at Home
BG 160 at ER
- cont MOTORCY[employer] FINAL INSPECTOR Lantus/Aspart
- Held Ozempic
- add ISS low
HLD on Atorvastatin
Hypothyroidism
-Continue levothyroxine
HX essential Hypertension
AV paced rhythm
- cont Amiodarone and Metoprolol
HX Myasthenia Gravis on Pyridostigmine
Midodrine dependent chr hypotension
Anticipated Discharge: 24 - 48 hours
Subjective/Interval History
-
Date of Service: November 10, 2023
Objective Data
-
Vital Signs:
Vital Signs
Temp Pulse Resp BP Pulse Ox
97.3 F 71 16 113/60 96
11/10/23 15:13 11/10/23 15:45 11/10/23 15:45 11/10/23 15:13 11/10/23 15:45
I&O
11/09/23 11/10/23 11/11/23
06:59 06:59 06:59
Intake Total 1080 / 1080 1320 / 1320
Output Total 720 / 720 250 / 250
Balance 360 / 360 1070 / 1070
Physical Exam
-
General: Well Developed and No Apparent Distress
HEENT: Normocephalic, Atraumatic and Moist Mucous Membranes
Respiratory: Clear to Auscultation
Cardiac: Regular Rhythm and S1/S2; Negative Murmur, Rub or Gallop
GI: Soft, Nontender, Nondistended and Normal Bowel Sounds; Negative Organomegaly
Rectal: Deferred by Provider
Musculoskeletal: No Clubbing, No Cyanosis and No Edema
Skin: Negative Rash
Neuro: Nonfocal/Grossly Intact
--- NOTE | 2023-11-10 18:10 | PTCARENOTE ---
Patient orthostatic vital signs from this morning - Supine BP 98/58, Pulse 61; Sitting BP 69/46, Pulse 66; standing BP 70/49, Pulse 76. Dr. Cardenas aware. BP up to 121/67. Midodrine given as ordered. Patient with fine crackles in lungs. Echo
completed - EF 55% - 60%. Given 20 mg IV lasix as ordered.
[2023-11-10] MEDS: LIPITOR 20 MG PO (18:33)
[2023-11-10 21:19] LABS: Glucose - Point of Care 202 mg/dl (70-99)
[2023-11-10] MEDS: MELATONIN 3 MG PO (21:32)
[2023-11-10] MEDS: LANTUS 0.06 UNITS SC (21:32)
[2023-11-11 03:02] VITALS: BP 104/62
[2023-11-11] MEDS: SYNTHROID 75 MCG PO (05:33)
[2023-11-11 06:00] VITALS: BMI 23.6
[2023-11-11 07:00] VITALS: BP 116/63
[2023-11-11] MEDS: DUONEB 3 ML INH ×3 (07:41→15:06)
[2023-11-11 08:10] LABS: Glucose - Point of Care 215 mg/dl (70-99)
[2023-11-11] MEDS: NOVOLOG FLEXPEN-LOW RESISTANCE 2 UNITS SC ×2 (08:51→17:24)
[2023-11-11] MEDS: MESTINON 60 MG PO ×3 (08:52→22:27)
[2023-11-11] MEDS: XARELTO 20 MG PO (08:52)
[2023-11-11] MEDS: ProAmatine 5 MG PO ×3 (08:52→17:23)
[2023-11-11] MEDS: KCL 20 MEQ PO (08:52)
[2023-11-11] MEDS: FLOMAX 0.4 MG PO (08:52)
[2023-11-11] MEDS: PEPCID 20 MG PO (08:52)
[2023-11-11] MEDS: PACERONE 200 MG PO (08:52)
[2023-11-11] MEDS: LEXAPRO 10 MG PO (08:52)
[2023-11-11] MEDS: TOPROL XL 100 MG PO ×2 (08:52→20:33)
--- NOTE | 2023-11-11 10:36 | PN.CDI ---
CDI
- -
CDI:
Physician Documentation Request
Admit Date: 11/08/23 02:59
Dear Doctor Theresa,
Please review the following and provide your response in the progress notes.
Clinical Indicators:
Pt admitted with acute hypoxic Respiratory Insufficiency
11/06 ER note: 'Discharge Problem:
Acute exacerbation of chronic obstructive pulmonary disease (COPD), Hypoxia'
11/07 Pulm note: 'He was admitted for hypoxia and acute COPD exacerbation. We are asked to see him because of hypoxia...He has never been on oxygen.'
'Noted to be hypoxic requiring oxygen, 88% on room air'
11/09 Pulm note: 'Acute hypoxic respiratory insufficiency, 88% room air, now 96% on 3L/min NC...Will likely require home oxygen at time of discharge'
Clarify which of the following accurately represents the patient's respiratory status
Acute respiratory failure
Acute respiratory insufficiency
Hypoxia
Other
Selected Entries
11/08/23
04:30 11/08/23
04:45 11/08/23
08:00
Nasal Cannula flow liters per minute 4 5 5
Additional information for Respiratory Failure:
Recognized criteria for Respiratory Failure (Source: [employer] Hospitalist Mar 2013)
ABGs: (1 or more)
1. p)2 <60 or RA SPO2 <91% on RA
2. pCO2 50 and pH <7.35
3. pO2 decrease of pCO2 increase by
10 mmHg from baseline if known
Supplemental O2 of > 40% (5LPM)
Use of terms such as suspected, likely, concern for, or probable (associated with a specific diagnosis that is being evaluated, monitored, or treated as if it exists) are acceptable and can be coded in the inpatient setting, when documented at the
time of discharge.
Thank you,
Libby Francis RN, BSN
CDI Specialist
Available via [place] [employer]
Please use your independent medical judgment in providing your response.
--- NOTE | 2023-11-11 11:23 | W.PN.PUL3 ---
Today's Communication / Plan
-
Will likely require home oxygen at time of discharge - check ambulatory pulse oximetry prior to discharge
Make duonebs prn as he does not appear to be deriving benefit from DuoNeb treatment and there was no obstruction seen today on spirometry
Outpatient PFTs to assess stability of diffusion capacity
CT chest imaging can be discussed as an outpatient as well
Outpatient pulmonary follow-up
Assessment
-
73-year-old male with history of diabetes, atrial fibrillation on anticoagulation, coronary disease, smoking history presents with lethargy, found to have a blood sugar of 70 at home. We are asked to comment on patient's hypoxia
Impression:
Acute hypoxic respiratory insufficiency, 88% room air, now 96% on 3L/min NC
Mild crackles on exam
Possible interstitial changes per chest x-ray
Questionable diaphragmatic calcification
Hypoglycemia, blood sugar 70
Was 160 in the ED
History of atrial fibrillation on Xarelto
On amiodarone therapy
Recent fall
Gas exchange capacity defect as per PFTs done today (DLco: 42%; DLco/VA: 45%)
Conditions present prior to admission
History of myasthenia gravis (details unclear)
Hypertension/hyperlipidemia
Diabetes
Hypothyroidism
History of atrial fibrillation
Pacemaker in place
History of coronary disease, [place] (per son)
GERD with gastric ulcer repair in the past (details unclear)
30+ pack-year history of smoking, quit around 2003
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
Plans/Recs
At this time, patient appears to be comfortable and is without complaints. Per Dr. Castillo, son denies any issues with shortness of breath, cough, wheezing. Apparently patient has seen pulmonary in the past in [place] but for unclear reasons.
Smoking history noted. Patient not on any inhalers.
Noted to be hypoxic requiring oxygen, 88% on room air
Ambulatory saturation after ambulating 25 feet 88%
Mild crackles on exam noted per Dr. Castillo, coarse breath sounds heard on 11/09 but today he is diminished without any crackles on exam. Xhest x-ray per my review suggests mild interstitial disease with possible diaphragmatic calcifications
There may be an occupational exposure history
Moving forward
Given lack of symptoms, workup can be deferred as outpatient
Given that he is on amiodarone therapy, full PFT check today however patient did not do maximal effort, and there was no obstruction or restrictive defect seen. Diffusion capacity was moderately reduced at 42% predicted.
Will require repeat full PFT in 6 months to assess stability diffusion capacity; can discuss CT chest as an outpatient given hypoxia and amiodarone therapy
Check ambulatory pulse oximetry prior to discharge
His nocturnal oximetry WNL overnight from 11/08 - 11/10/2023 with time SpO2 <89% of 1 min, 14 seconds
Of note, head CT without acute findings
Patient will require PT/OT evaluation
We will continue to follow.
Total time spent today was 35 minutes for this encounter. Time includes reviewing laboratory test/imaging results, reviewing pertinent medical records, obtaining and reviewing medical history, performing an appropriate exam, ordering medications,
tests and procedures. Time also includes documentation of this encounter, coordinating patient care and communicating with other healthcare professionals. Total time does not include separately billed tests performed on this date of service.
Subjective Data
-
Date of Service:
Date of Service: November 11, 2023
Chief Complaint: Pulmonary Follow Up
Subjective:
Seen today at bedside. Currently on 3 L/min nasal cannula breathing comfortably. Went down for PFT but had difficulty following directions. No restriction or obstruction seen. Moderate gas exchange capacity defect seen with DLco 42% predicted.
He denies shortness of breath currently or chest pain.
Review of Systems
General: Other (Negative unless mentioned above)
Objective Data
Data Reviewed
Vital Signs / I&O / Oxygen:
Vital Signs
Temp Pulse Resp BP Pulse Ox
97.9 F 75 16 116/63 93
11/11/23 07:00 11/11/23 08:52 11/11/23 07:46 11/11/23 08:52 11/11/23 08:00
Intake and Output
11/10/23 11/11/23 11/12/23
06:59 06:59 06:59
Intake Total 1320 / 1320 780 / 780
Output Total 250 / 250 2049 / 2049
Balance 1070 / 1070 -1270 / -1270
SaO2 93
Nasal Cannula flow liters per 2
minute
Physical Exam
General: Respiratory Distress (Negative) and Comfortable
HEENT: Normocephalic and Anicteric
Cardiovascular: S1-S2, Murmur (n), Rub (n), Peripheral Edema (Negative) and Other (Distant cardiac sounds)
Respiratory: Clear, Wheeze (n), Crackles (Negative), Rhonchi (n), Non-Labored Respirations, Stridor (n) and Other (Reduced breath sounds bilaterally)
GI: Soft, Non Distended, Non Tender and Normal Bowel Sounds
Neurology: Awake, Alert and No Motor Deficits (Able to sit up without assistance)
Skin: Warm, Dry, Jaundice (n) and Rash (n)
Labs/Micro/Reports
Lab Data
11/08/23 10:20
11/08/23 10:20
Microbiology
11/08/23 10:13 Nose MRSA Screen - Final
No Methicillin Resistant Staphylococcus aureus isolated.
--- NOTE | 2023-11-11 11:51 | CM ---
MD indicated ready for discharge and needed home oxygen .
Home oxygen test and nocturnal testing done.
Spoke with Lilian dgt [phone] Offered choice on oxygen DME . Agreed with [facility] . Agreed with VN with [facility] . Spoke with Day Boateng referral placed in care port.
PCP DR Vladimir Webb [facility] [phone].
Contacted Alhaji at [facility]. Clinical and script faxed .
Portable oxygen to be delivered to room. Pt braxton need to contact [facility] care [facility] on way home to have concentrated delivered to home.
IMM explained agrees with DC.
PLAN Home with [facility] fax [phone]
Oxygen with [facility]
[2023-11-11 12:11] LABS: Glucose - Point of Care 251 mg/dl (70-99)
[2023-11-11] MEDS: NOVOLOG FLEXPEN-LOW RESISTANCE 3 UNITS SC (12:24)
[2023-11-11] MEDS: LASIX 40 MG IV (14:35)
[2023-11-11 15:19] VITALS: BP 79/58; BP 94/64; PULSE 72; PULSE 78
--- NOTE | 2023-11-11 15:38 | PTCARENOTE ---
pt complained unable to void. bladder scanned pt with 181. order to st cath once.
[2023-11-11 15:44] LABS: Urine Albumin Trace (Neg - Trace); Urine Bilirubin 1+ (Negative); Urine Character Clear (Clear); Urine Color Yellow; Urine Glucose Negative (Negative); Urine Ketone Negative (Negative); Urine Leukocyte Negative (Negative); Urine Nitrite Negative (Negative); Urine Occult Blood Negative (Negative); Urine Specific Gravity 1.025 (<1.030); Urine Urobilinogen Negative (Neg - 1+)
[2023-11-11 16:51] LABS: Glucose - Point of Care 245 mg/dl (70-99)
--- NOTE | 2023-11-11 17:19 | W.PN.HOSP.TC ---
Today's Communication/Plan
-
IV diuresis
Daily weights.
Attempt to wean off oxygen versus home O2 assessment oxygen provision.
Monitor for urine retention
Add Flomax to oxybutynin
Increase activity.
Assessment / Plan
Assessment / Plan
Impression:*
Acute hypoxic respiratory insufficiency with pulse ox of 88% on room air.
? CHF/preserved EF with mild pulmonary edema/vascular congestion on chest x-ray.
Symptomatic hypoglycemia blood glucose of 70 upon presentation.
Conditions prior to admission:
Myasthenia gravis?
Essential hypertension
Dyslipidemia
IDDM.
Hypothyroidism on replacement.
Paroxysmal atrial fibrillation/sick sinus syndrome with pacemaker in place.
Anticoagulation with Xarelto
CAD with history of [place]
GERD.
Former smoker 30+ year
Occupational exposure
Plan
Acute hypoxic RI of uncertain etiology : DEVAN ?, former smoker, no wheezing on exam
-Potentially amiodarone induced lung fibrosis. Will need outpatient PFTs to make this diagnosis per pulmonary. Will continue amiodarone for now though until it can be confirmed
- clinically not bronchospastic
-Chest x-ray with mild congestion
-Mildly elevated pro CHF BNP.
Echocardiogram 11/09: Normal biventricular size and systolic function without regional wall motion abnormalities
Dilated aortic root at 4.9 cm.
Given all of above will provide single dose of IV Lasix and 40 mg with attempt to wean off O2
- NEG Covid
- NEG TPNI
- Cont DuoNeb qid and PRN
- STOP Bank at least 4 (male, age, neck circx, htn) will need to follow up with sleep medicine on dc.
- Can consider checking an overnight pulse ox
Gentle IV diuresis monitoring weight and renal function
Attempt to wean off oxygen if possible with diuresis.
Follow-up chest x-ray on 11/11.
Dysuria with retention.
Required straight cath overnight with 400 mL.
Continue bladder scan
Continue oxybutynin
Start Flomax
Fall, was dizzy
- Likely related to hypoglycemia
- EKG Atrial paced
- Check orthostatics
- Head strike +, no focal neuro defecits
- Check CT brain to r/o bleed as on AC
Hypoglycemia at Home
BG 160 at ER
- cont CUP SETTER LOCKSTITCH Lantus/Aspart
- Held Ozempic
- add ISS low
HLD on Atorvastatin
Hypothyroidism
-Continue levothyroxine
HX essential Hypertension
AV paced rhythm
- cont Amiodarone and Metoprolol
HX Myasthenia Gravis on Pyridostigmine
Midodrine dependent chr hypotension
Anticipated Discharge: 24 - 48 hours
Subjective/Interval History
-
Date of Service: November 11, 2023
Objective Data
-
Vital Signs:
Vital Signs
Temp Pulse Resp BP Pulse Ox
97.9 F 78 18 94/64 97
11/11/23 15:19 11/11/23 15:19 11/11/23 15:19 11/11/23 15:19 11/11/23 15:19
I&O
11/10/23 11/11/23 11/12/23
06:59 06:59 06:59
Intake Total 1320 / 1320 780 / 780
Output Total 250 / 250 2049 475 / 475
Balance 1070 / 1070 -1270 / -1270 -475 / -475
Physical Exam
-
General: Well Developed and No Apparent Distress
HEENT: Normocephalic, Atraumatic and Moist Mucous Membranes
Respiratory: Clear to Auscultation
Cardiac: Regular Rhythm and S1/S2; Negative Murmur, Rub or Gallop
GI: Soft, Nontender, Nondistended and Normal Bowel Sounds; Negative Organomegaly
Rectal: Deferred by Provider
Musculoskeletal: No Clubbing, No Cyanosis and No Edema
Skin: Negative Rash
Neuro: Nonfocal/Grossly Intact
[2023-11-11] MEDS: LIPITOR 20 MG PO (17:23)
[2023-11-11 19:54] VITALS: BP 102/65
[2023-11-11 22:02] LABS: Glucose - Point of Care 299 mg/dl (70-99)
[2023-11-11] MEDS: LANTUS 0.06 UNITS SC (22:26)
[2023-11-11] MEDS: MELATONIN 3 MG PO (22:27)
[2023-11-11 23:18] VITALS: BP 109/67
[2023-11-12 03:36] VITALS: BP 106/61
[2023-11-12] MEDS: SYNTHROID 75 MCG PO (04:30)
[2023-11-12 05:10] LABS: Blood Urea Nitrogen 36 mg/dl (9-20); Calcium 9.6 mg/dl (8.4-10.2); Carbon Dioxide 25 mmol/L (22-30); Chloride 96 mmol/L (98-107); Estimated Creatinine Clearance 49 ml/min; Glucose 200 mg/dl (70-99); Potassium 4.1 mmol/L (3.5-5.1); Sodium 130 mmol/L (135-145); eGFR 57.29
[2023-11-12 06:00] VITALS: BMI 23.5
[2023-11-12 07:35] VITALS: BP 104/63; BP 86/60; BP 94/62; PULSE 62; PULSE 68; PULSE 73
[2023-11-12 07:50] LABS: Glucose - Point of Care 204 mg/dl (70-99)
[2023-11-12] MEDS: KCL 20 MEQ PO (08:23)
[2023-11-12] MEDS: NOVOLOG FLEXPEN-LOW RESISTANCE 2 UNITS SC ×3 (08:23→17:19)
[2023-11-12] MEDS: MESTINON 60 MG PO ×3 (08:27→21:46)
[2023-11-12] MEDS: PEPCID 20 MG PO (08:28)
[2023-11-12] MEDS: LEXAPRO 10 MG PO (08:28)
[2023-11-12] MEDS: XARELTO 20 MG PO (08:28)
[2023-11-12] MEDS: ProAmatine 5 MG PO ×2 (08:28→12:34)
[2023-11-12] MEDS: FLOMAX 0.4 MG PO (08:31)
[2023-11-12] MEDS: PACERONE 200 MG PO (08:47)
[2023-11-12] MEDS: TOPROL XL PO (08:47)
--- NOTE | 2023-11-12 08:48 | PTCARENOTE ---
pt's BP low 100's/60's HR 60's. MD order to hold Toprol.
--- NOTE | 2023-11-12 10:09 | W.PN.PUL3 ---
Today's Communication / Plan
-
Check CT chest
Will likely require home oxygen at time of discharge - check ambulatory pulse oximetry prior to discharge
prn duonebs prn as he does not appear to be deriving benefit from DuoNeb treatment and there was no obstruction seen today on spirometry
Repeat PFTs as an outpatient to assess stability of diffusion capacity
Outpatient pulmonary follow-up
Assessment
-
73-year-old male with history of diabetes, atrial fibrillation on anticoagulation, coronary disease, smoking history presents with lethargy, found to have a blood sugar of 70 at home. We are asked to comment on patient's hypoxia
Impression:
Acute hypoxic respiratory insufficiency, 88% room air, now 94% on 2L/min NC
Mild crackles on exam - now resolved
Possible interstitial changes per chest x-ray
Questionable diaphragmatic calcification
Hypoglycemia, blood sugar 70
Was 160 in the ED
History of atrial fibrillation on Xarelto
On amiodarone therapy
Recent fall
Gas exchange capacity defect as per PFTs done today (DLco: 42%; DLco/VA: 45%)
Conditions present prior to admission
History of myasthenia gravis (details unclear)
Hypertension/hyperlipidemia
Diabetes
Hypothyroidism
History of atrial fibrillation
Pacemaker in place
History of coronary disease, [place] (per son)
GERD with gastric ulcer repair in the past (details unclear)
30+ pack-year history of smoking, quit around 2003
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
Plans/Recs
At this time, patient appears to be comfortable and is without complaints. Per Dr. Castillo, son denies any issues with shortness of breath, cough, wheezing. Apparently patient has seen pulmonary in the past in [place] but for unclear reasons.
Smoking history noted. Patient not on any inhalers.
Noted to be hypoxic requiring oxygen, 88% on room air
Ambulatory saturation after ambulating 25 feet 88%
Mild crackles on exam noted per Dr. Castillo, coarse breath sounds heard on 11/09 but today he is diminished without any crackles on exam. Xhest x-ray per my review suggests mild interstitial disease with possible diaphragmatic calcifications
There may be an occupational exposure history
Moving forward
Given lack of symptoms, workup can be deferred as outpatient
Given that he is on amiodarone therapy, full PFT checked on 11/11/2023, however patient did not do maximal effort, and there was no obstruction or restrictive defect seen. Diffusion capacity was moderately reduced at 42% predicted.
Will require repeat full PFT in 6 months to assess stability diffusion capacity
CXR today shows top normal pulmonary vascularity; check CT chest to assess pulmonary parenchyma especially given his continued oxygen requirements when he previously was not on home O2
Check ambulatory pulse oximetry prior to discharge
His nocturnal oximetry WNL overnight from 11/08 - 11/10/2023 with time SpO2 <89% of 1 min, 14 seconds
Of note, head CT without acute findings
Patient will require PT/OT evaluation
We will continue to briefly follow.
Total time spent today was 35 minutes for this encounter. Time includes reviewing laboratory test/imaging results, reviewing pertinent medical records, obtaining and reviewing medical history, performing an appropriate exam, ordering medications,
tests and procedures. Time also includes documentation of this encounter, coordinating patient care and communicating with other healthcare professionals. Total time does not include separately billed tests performed on this date of service.
Subjective Data
-
Date of Service:
Date of Service: November 12, 2023
Chief Complaint: Pulmonary Follow Up
Subjective:
Patient seen today. He is on 2 L/min nasal cannula breathing comfortably. Denies chest pain, abdominal pain, fevers or chills.
Review of Systems
General: Other (Negative unless mentioned above)
Objective Data
Data Reviewed
Vital Signs / I&O / Oxygen:
Vital Signs
Temp Pulse Resp BP Pulse Ox
97.8 F 62 20 104/63 95
11/12/23 07:35 11/12/23 08:47 11/12/23 07:35 11/12/23 08:47 11/12/23 07:35
Intake and Output
11/11/23 11/12/23 11/13/23
06:59 06:59 06:59
Intake Total 780 / 780 540 / 540
Output Total 2049 / 2049 1500 / 1500
Balance -1270 / -1270 -960 / -960
SaO2 95
Nasal Cannula flow liters per 2
minute
Physical Exam
General: Respiratory Distress (Negative) and Comfortable
HEENT: Normocephalic and Anicteric
Cardiovascular: S1-S2, Murmur (n), Rub (n), Peripheral Edema (Negative) and Other (Distant cardiac sounds)
Respiratory: Clear, Wheeze (n), Crackles (Negative), Rhonchi (n), Non-Labored Respirations, Stridor (n) and Other (Reduced breath sounds bilaterally)
GI: Soft, Non Distended, Non Tender and Normal Bowel Sounds
Neurology: Awake, Alert and No Motor Deficits (Able to sit up without assistance)
Skin: Warm, Dry, Jaundice (n) and Rash (n)
Labs/Micro/Reports
Lab Data
11/08/23 10:20
11/12/23 04:41
Microbiology
11/08/23 10:13 Nose MRSA Screen - Final
No Methicillin Resistant Staphylococcus aureus isolated.
[2023-11-12 11:16] VITALS: BP 119/64
[2023-11-12 11:45] LABS: Glucose - Point of Care 214 mg/dl (70-99)
[2023-11-12 15:51] VITALS: BP 124/67
[2023-11-12 16:41] LABS: Glucose - Point of Care 225 mg/dl (70-99)
[2023-11-12] MEDS: LIPITOR 20 MG PO (17:19)
[2023-11-12] MEDS: ProAmatine 10 MG PO (17:19)
--- NOTE | 2023-11-12 17:30 | CM ---
Home oxygen set up with [id number] Portable tank in room.
Pt will need updated home oxygen testing and faxed to [facility].
Spoke with Lilian crane [phone] .
Spoke with Day Boateng accepted referral .
PCP DR Vladimir Webb [facility] [phone].
Contacted Alhaji at [employer]. Clinical and script faxed .
PLAN Home with [facility] fax [phone]
Oxygen with [employer] Need updated testing faxed to [facility]
--- NOTE | 2023-11-12 17:41 | W.PN.HOSP.TC ---
Addendum entered and electronically signed by Deyvi Cardenas MD 11/21/23 12:47:
Hypervolimic Hyponatremia
Original Note:
Today's Communication/Plan
-
Rico catheter.
Reduce beta-evelin dose.
Increase midodrine.
CT scan of the chest.
Attempt to wean off oxygen
Assess for home O2 prior to discharge
Assessment / Plan
Assessment / Plan
Impression:*
Acute hypoxic respiratory insufficiency with pulse ox of 88% on room air.
? CHF/preserved EF with mild pulmonary edema/vascular congestion on chest x-ray.
Symptomatic hypoglycemia blood glucose of 70 upon presentation.
Conditions prior to admission:
Myasthenia gravis?
Essential hypertension
Dyslipidemia
IDDM.
Hypothyroidism on replacement.
Paroxysmal atrial fibrillation/sick sinus syndrome with pacemaker in place.
Anticoagulation with Xarelto
CAD with history of DC
GERD.
Former smoker 30+ year
Occupational exposure
Plan
Acute hypoxic RI of uncertain etiology : DEVAN ?, former smoker, no wheezing on exam
-Potentially amiodarone induced lung fibrosis. Will need outpatient PFTs to make this diagnosis per pulmonary. Will continue amiodarone for now though until it can be confirmed
- clinically not bronchospastic
-Chest x-ray with mild congestion
-Mildly elevated pro CHF BNP.
Echocardiogram 11/09: Normal biventricular size and systolic function without regional wall motion abnormalities
Dilated aortic root at 4.9 cm.
Given all of above will provide single dose of IV Lasix and 40 mg with attempt to wean off O2
- NEG Covid
- NEG TPNI
- Cont DuoNeb qid and PRN
- STOP Bank at least 4 (male, age, neck circx, htn) will need to follow up with sleep medicine on dc.
-IV diuresis Lasix given on 11/09, 11/10 with improved subjective dyspnea
Follow-up chest x-ray 11/11 with clear lung will. Hold further diuresis given marginal BP
Agree with CT scan as additional imaging
Assess for home O2 prior to discharge.
Dysuria with retention.
Required straight cath overnight with 400 mL.
With recurrent retention Rico catheter placed on 11/11
Continue Flomax
Symptomatic orthostatic hypotension
CT scan of the head with no acute abnormalities
Reduce Toprol to 50 mg twice daily.
Continue amiodarone
Increase midodrine to 10 mg 3 times daily.
Hypoglycemia at Home
BG 160 at ER
- cont REQUISITION APPROVER Lantus/Aspart
- Held Ozempic
- add ISS low
HLD on Atorvastatin
Hypothyroidism
-Continue levothyroxine
HX essential Hypertension
AV paced rhythm
- cont Amiodarone and Metoprolol
HX Myasthenia Gravis on Pyridostigmine
Midodrine dependent chr hypotension
Anticipated Discharge: 24 - 48 hours
Subjective/Interval History
-
Date of Service: November 12, 2023
Objective Data
-
Vital Signs:
Vital Signs
Temp Pulse Resp BP Pulse Ox
98.1 F 61 18 130/65 94
11/12/23 15:51 11/12/23 17:19 11/12/23 15:51 11/12/23 17:19 11/12/23 15:51
I&O
11/11/23 11/12/23 11/13/23
06:59 06:59 06:59
Intake Total 780 / 780 540 / 540 540 / 540
Output Total 2049 1500 / 1500 325 / 325
Balance -1270 / -1270 -960 / -960 215 / 215
Physical Exam
-
General: Well Developed and No Apparent Distress
HEENT: Normocephalic, Atraumatic and Moist Mucous Membranes
Respiratory: Clear to Auscultation
Cardiac: Regular Rhythm and S1/S2; Negative Murmur, Rub or Gallop
GI: Soft, Nontender, Nondistended and Normal Bowel Sounds; Negative Organomegaly
Rectal: Deferred by Provider
Musculoskeletal: No Clubbing, No Cyanosis and No Edema
Skin: Negative Rash
Neuro: Nonfocal/Grossly Intact
[2023-11-12 19:42] VITALS: BP 97/62
[2023-11-12 21:12] LABS: Glucose - Point of Care 262 mg/dl (70-99)
[2023-11-12] MEDS: LANTUS 0.06 UNITS SC (21:46)
[2023-11-12] MEDS: TOPROL XL 50 MG PO (21:46)
[2023-11-12] MEDS: MELATONIN 3 MG PO (21:46)
[2023-11-12 23:19] VITALS: BP 109/58
[2023-11-13 03:46] VITALS: BP 112/60
[2023-11-13] MEDS: SYNTHROID 75 MCG PO (05:44)
[2023-11-13 06:56] LABS: Glucose - Point of Care 196 mg/dl (70-99)
[2023-11-13 07:00] VITALS: BP 117/66
[2023-11-13 07:38] LABS: Blood Urea Nitrogen 31 mg/dl (9-20); Calcium 9.3 mg/dl (8.4-10.2); Carbon Dioxide 25 mmol/L (22-30); Chloride 97 mmol/L (98-107); Estimated Creatinine Clearance 64 ml/min; Glucose 171 mg/dl (70-99); Potassium 3.9 mmol/L (3.5-5.1); Sodium 129 mmol/L (135-145); eGFR > 60.00
[2023-11-13] MEDS: PEPCID 20 MG PO (08:45)
[2023-11-13] MEDS: FLOMAX 0.4 MG PO (08:45)
[2023-11-13] MEDS: PACERONE 200 MG PO (08:45)
[2023-11-13] MEDS: LEXAPRO 10 MG PO (08:45)
[2023-11-13] MEDS: MESTINON 60 MG PO (08:46)
[2023-11-13] MEDS: XARELTO 20 MG PO (08:46)
[2023-11-13] MEDS: TOPROL XL 50 MG PO (08:46)
[2023-11-13] MEDS: KCL 20 MEQ PO (08:46)
[2023-11-13] MEDS: ProAmatine 10 MG PO ×2 (08:49→12:35)
[2023-11-13] MEDS: NOVOLOG FLEXPEN-LOW RESISTANCE 1 UNITS SC (10:01)
[2023-11-13 11:00] VITALS: BP 128/75; BP 85/52; BP 88/57; PULSE 61
[2023-11-13 11:49] LABS: Glucose - Point of Care 223 mg/dl (70-99)
--- NOTE | 2023-11-13 12:22 | W.PN.PUL3 ---
Today's Communication / Plan
-
CT chest with mild reticular changes predominantly in the bases with mild�moderate emphysema � consider serial CT imaging as an outpatient
Serial PFT as well as an outpatient to assure diffusion capacity is stable while on amiodarone
Patient is being prepared for discharge home today. We will follow-up with the patient in the office. Pulmonary service will now sign off. Please reconsult if there are any additional questions/concerns, or if patient's respiratory status
deteriorates.
Assessment
-
73-year-old male with history of diabetes, atrial fibrillation on anticoagulation, coronary disease, smoking history presents with lethargy, found to have a blood sugar of 70 at home. We are asked to comment on patient's hypoxia
Impression:
Acute hypoxic respiratory insufficiency, 88% room air, now 94% on room air
Mild crackles on exam - now resolved
Possible interstitial changes per chest x-ray with minimal reticular changes seen mainly in the bases of CT chest from today
Questionable diaphragmatic calcification
Hypoglycemia, blood sugar 70
Was 160 in the ED
History of atrial fibrillation on Xarelto
On amiodarone therapy
Recent fall
Gas exchange capacity defect as per PFTs done today (DLco: 42%; DLco/VA: 45%)
Conditions present prior to admission
History of myasthenia gravis (details unclear)
Hypertension/hyperlipidemia
Diabetes
Hypothyroidism
History of atrial fibrillation
Pacemaker in place
History of coronary disease, [place] (per son)
GERD with gastric ulcer repair in the past (details unclear)
30+ pack-year history of smoking, quit around 2003
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
Plans/Recs
At this time, patient appears to be comfortable and is without complaints. Per Dr. Castillo, son denies any issues with shortness of breath, cough, wheezing. Apparently patient has seen pulmonary in the past in [place] but for unclear reasons.
Smoking history noted. Patient not on any inhalers.
Noted to be hypoxic requiring oxygen, 88% on room air
Ambulatory saturation after ambulating 25 feet 88%
Mild crackles on exam noted per Dr. Castillo, coarse breath sounds heard on 11/09 but as of 11/11 he is diminished without any crackles on exam. Chest x-ray per my review suggests mild interstitial disease with possible diaphragmatic calcifications
There may be an occupational exposure history
Moving forward
Given lack of symptoms, workup can be deferred as outpatient
Given that he is on amiodarone therapy, full PFT checked on 11/11/2023, however patient did not do maximal effort, and there was no obstruction or restrictive defect seen. Diffusion capacity was moderately reduced at 42% predicted.
Will require repeat full PFT in 6 months to assess stability diffusion capacity
CXR from yesterday shows top normal pulmonary vascularity; CT chest today shows no evidence of ILD although there is mild subpleural reticular markings seen predominantly in the bases with mild-moderate centrilobular emphysema; repeat CT chest in
6-12 months to assess stability
Home O2 assessment done today- [place] SpO2 is 91% on room air. Patient does not require home oxygen therapy at this time.
His nocturnal oximetry WNL overnight from 11/08 - 11/10/2023 with time SpO2 <89% of 1 min, 14 seconds
Of note, head CT without acute findings
Patient will require PT/OT evaluation
Patient is being prepared for discharge home today. We will follow-up with the patient in the office. Pulmonary service will now sign off. Thank you for allowing us to be involved in the care of this patient. Please reconsult if there are any
additional questions/concerns, or if patient's respiratory status deteriorates.
Total time spent today was 35 minutes for this encounter. Time includes reviewing laboratory test/imaging results, reviewing pertinent medical records, obtaining and reviewing medical history, performing an appropriate exam, ordering medications,
tests and procedures. Time also includes documentation of this encounter, coordinating patient care and communicating with other healthcare professionals. Total time does not include separately billed tests performed on this date of service.
Data:
CT Chest 11-13-2023: There is no evidence of acute pathology; Mild centrilobular emphysema
Subjective Data
-
Date of Service:
Date of Service: November 13, 2023
Chief Complaint: Pulmonary Follow Up
Subjective:
Patient seen and evaluated today at bedside. No events reported overnight. He is on room air breathing comfortably. He is being discharged home today. Denies chest pain, shortness of breath, fevers or chills.
Review of Systems
General: Other (Negative unless mentioned above)
Objective Data
Data Reviewed
Vital Signs / I&O / Oxygen:
Vital Signs
Temp Pulse Resp BP Pulse Ox
97.8 F 61 18 128/75 94
11/13/23 11:00 11/13/23 11:00 11/13/23 11:00 11/13/23 11:00 11/13/23 11:00
Intake and Output
11/12/23 11/13/23 11/14/23
06:59 06:59 06:59
Intake Total 540 / 540 1020 / 1020
Output Total 1500 / 1500 850 / 850
Balance -960 / -960 170 / 170
SaO2 94
Nasal Cannula flow liters per 1
minute
Physical Exam
General: Respiratory Distress (Negative) and Comfortable
HEENT: Normocephalic and Anicteric
Cardiovascular: S1-S2, Murmur (n), Rub (n), Peripheral Edema (Negative) and Other (Distant cardiac sounds)
Respiratory: Clear, Wheeze (n), Crackles (Negative), Rhonchi (n), Non-Labored Respirations, Stridor (n) and Other (Reduced breath sounds bilaterally)
GI: Soft, Non Distended, Non Tender and Normal Bowel Sounds
Neurology: Awake, Alert and No Motor Deficits (Able to sit up without assistance)
Skin: Warm, Dry, Jaundice (n) and Rash (n)
Labs/Micro/Reports
Lab Data
11/08/23 10:20
11/13/23 06:15
--- NOTE | 2023-11-13 13:19 | PN.CDI ---
CDI
- -
CDI:
Physician Documentation Request
Admit Date: 11/08/23 02:59
Dear Doctor Theresa,
Please review the following and provide your response in the progress notes.
Clinical Indicators:
Pt admitted with acute respiratory insufficiency.
Laboratory Tests
11/08/23 11/12/23 11/13/23
00:27 04:41 06:15
Sodium 134 L 130 L 129 L
Based on the above lab values, could you please clarify in the progress notes, the appropriate diagnosis, that supports the above abnormalities and additional evaluation, monitoring and/or treatment rendered:
hyponatremia
insignificant abnormal lab values
Other
Use of terms such as suspected, likely, concern for, or probable (associated with a specific diagnosis that is being evaluated, monitored, or treated as if it exists) are acceptable and can be coded in the inpatient setting, when documented at the
time of discharge.
Thank you,
Libby Francis RN, BSN
CDI Specialist
Available via [employer]
Please use your independent medical judgment in providing your response.
[2023-11-13] MEDS: NOVOLOG FLEXPEN-LOW RESISTANCE 2 UNITS SC (13:56)
[2023-11-13 15:00] VITALS: BP 124/69
--- NOTE | 2023-11-13 15:00 | W.DS.TRANS ---
DC Summary - Insurance Account Specialist
-
Discharge Instructions:
Discharge Diagnosis/Procedures Impression:*
Acute hypoxic respiratory insufficiency with
pulse ox of 88% on room air.
CHF/preserved EF with mild pulmonary edema/
vascular congestion on chest x-ray.
COPD
Symptomatic hypoglycemia blood glucose of 70
upon presentation.
Conditions prior to admission:
Myasthenia gravis?
Essential hypertension
Dyslipidemia
IDDM.
Hypothyroidism on replacement.
Paroxysmal atrial fibrillation/sick sinus
syndrome with pacemaker in place.
Anticoagulation with Xarelto
CAD with history of [place]
GERD.
Former smoker 30+ year
Occupational exposure
Diet Regular
Instructions:
Stand-Alone Forms:
Changes to Home Medications: Yes
Discharge Medications:
DC Medications w/original date entered in [employer]
amiodarone 200 mg tablet (Pacerone) 200 mg PO DAILY Heart disease/condition 05/25/21
atorvastatin 20 mg tablet 20 mg PO QPM High cholesterol 05/25/21
famotidine 20 mg tablet (Pepcid AC) 20 mg PO DAILY Gastrointestinal issue 05/25/21
insulin aspart U-100 100 unit/mL (3 mL) subcutaneous pen (Novolog FlexPen U-100 Insulin aspart) 0 sliding scale dose SC AC Diabetes 05/25/21
levothyroxine 75 mcg tablet 75 mcg PO DAILY Thyroid 05/25/21
magnesium oxide 400 mg PO BID Supplement ##0 05/25/21
pyridostigmine bromide 180 mg tablet,extended release 180 mg PO DAILY myasthenia gravis 05/25/21
escitalopram oxalate 10 mg tablet 10 mg PO DAILY Depression 11/07/23
insulin glargine 100 unit/mL (3 mL) subcutaneous pen (Lantus Solostar U-100 Insulin) 12 units SC HS Diabetes 11/07/23
melatonin 3 mg tablet 3 mg PO HS Sleep 11/07/23
oxybutynin chloride 5 mg tablet,extended release 24 hr 5 mg PO DAILY Urinary Issue 11/07/23
potassium chloride 20 mEq tablet,extended release(part/cryst) 20 meq PO DAILY Electrolyte Repletion 11/07/23
rivaroxaban 20 mg tablet (Xarelto) 20 mg PO DAILY Blood Clot Prevention/Tx 11/07/23
metoprolol succinate 50 mg tablet,extended release 24 hr 50 mg PO BID #60 tabs 11/13/23
midodrine 5 mg tablet 10 mg (2 x 5 mg) PO TID@0800,1300,1800 #90 tabs 11/13/23
tamsulosin 0.4 mg capsule 0.4 mg PO DAILY #30 caps 11/13/23
Home Medication Changes
Toprol decreased
Midodrine increased
Ozempic stopped
Flomax started.
Pending Results: No
[2023-11-13 15:04] VITALS: O2SAT 91; O2SAT 96
--- NOTE | 2023-11-13 16:52 | CM ---
home o2 test walking test done by nurse roldan.patient does not qualify for home o2.called [facility] to let them know.i brought portable o2 equipment back to office and [facility] will pick it up tomorrow.patient 's on gave permission to sign imm letter.stable for
dc home with [facility].family to transport patient home.
== END 2023-11-13 18:38 | disposition home health service (06) | DRG 197 ==
LOC: 4 EAST ACU 02:59
PROVIDERS: ADMITTING PHYSICIAN Internal Medicine; ATTENDING PHYSICIAN Internal Medicine; CONSULT PHYSICIAN Internal Medicine Critical Care Medicine; EMERGENCY PHYSICIAN Emergency Medicine
DX: J84.10 Pulmonary fibrosis, unspecified (principal); E87.1 Hypo-osmolality and hyponatremia; I50.32 Chronic diastolic (congestive) heart failure; E78.00 Pure hypercholesterolemia, unspecified; F32.A Depression, unspecified; I11.0 Hypertensive heart disease with heart failure; E03.9 Hypothyroidism, unspecified; E11.9 Type 2 diabetes mellitus without complications; I48.0 Paroxysmal atrial fibrillation; R09.02 Hypoxemia; R06.89 Other abnormalities of breathing; K21.9 Gastro-esophageal reflux disease without esophagitis; F41.9 Anxiety disorder, unspecified; J44.9 Chronic obstructive pulmonary disease, unspecified; E78.5 Hyperlipidemia, unspecified; I95.1 Orthostatic hypotension; G70.00 Myasthenia gravis without (acute) exacerbation; R33.8 Other retention of urine; E16.2 Hypoglycemia, unspecified; Z87.891 Personal history of nicotine dependence; Z79.890 Hormone replacement therapy; Z79.4 Long term (current) use of insulin; Z11.52 Encounter for screening for COVID-19; Z79.01 Long term (current) use of anticoagulants; I25.2 Old myocardial infarction; Z95.0 Presence of cardiac pacemaker; Z57.31 Occupational exposure to environmental tobacco smoke
CPT/HCPCS: 94729; 70450; 71045; 71046; 71250; 80048; 80053; 81003; 82962; 83036; 83735; 83880; 84484; 85025; 85027; 87070; 87811; 93005; 93306; 94010; 94640; 94762; 99291

== ENCOUNTER 2024-10-11 16:34 | Inpatient (IN) | payer OTHER, SELFPAY ==
[2024-10-11] VITALS (7 sets, daily range): BP systolic 91–154; BP diastolic 54–73; BMI 24.0; BMI 25.5
--- NOTE | 2024-10-11 11:46 | ED.GENMED ---
History of Present Illness
General
Chief Complaint: Breathing Problem
Time Seen by Provider: 10/11/24 11:34
History of Present Illness
History of Present Illness:
Patient is a 74-year-old man with history of diastolic heart failure, A-fib on Xarelto, hypertension, hyperlipidemia, diabetes presenting to the emergency department with weakness and shortness of breath. Patient was recently admitted last week for
pneumonia and discharged on antibiotics and steroids. He did complete the course. Since he has been discharged has been having progressive weakness and dizziness. Patient son has noticed his ambulatory pulse ox to be in the 70s. They received a
call from his family doctor stating the hemoglobin was 9. Patient denies any melena or hematochezia. No history of anemia prior to this. He has been compliant with his Xarelto. No chest pain. Occasional shortness of breath. No nausea vomiting
or diarrhea. He has been having low blood pressure as well as home. He is on midodrine. They did call his senior engineering technician and metoprolol was held for the past few days. He is not on a diuretic for his heart failure.
Past History
Past History
ED Past Medical History: HTN, Hypercholesterolemia, IDDM and Psychiatric (Depression)
ED Past Surgical History: Cardiac (Pacemaker) and Other (Stomach ulcer repair)
Social History
Tobacco: Former smoker
Alcohol: None
Drug: None
Living: with family
Phy Exam
Physical Exam
Physical Exam:
GENERAL: in no acute distress
HEENT: normocephalic, extraocular movements intact, moist oral mucosa
NECK: normal inspection
RESPIRATORY: no respiratory distress, crackles at right lower base
CARDIOVASCULAR: regular rate and rhythm
ABDOMEN/: soft, non-distended, non-tender to palpation, no rebound or guarding
EXTREMITIES: non-tender, no edema/swelling
NEUROLOGIC: awake and alert, moves all extremities
SKIN: warm
Scores
Heart Failure Risk
Heart Failure Risk Score: Not Applicable
Course
Orders/Labs/Results
Orders:
Orders
10/11/24 11:38
CBC/With Diff [Complete Blood Count/With Diff] Urgent
CMP [Comprehensive Metabolic Panel] Urgent
10/11/24 11:44
Add On- LAB Urgent
Tests Added?: troponin, bnp
Electrocardiogram (*1) Urgent
Reason for Study: Shortness of Breath
EKG- Treatment ONCE
10/11/24 11:45
CT Chest PE Study Urgent
Comment:
Reason For Exam: sob, hypotension
0.9% Sodium Chloride 250 ml [Nss] 250 ml IV BOLUS
10/11/24 12:58
COVID-19 Antigen Urgent
Source: Nasal Swab
NT-proBNP Routine
Troponin I Routine
Influenza A+B Rapid Molecular Urgent
TIFF Source: Nasal Swab
Specimen Description:
Abnormal Lab Results
10/11/24
11:38
RBC 3.50 L 10^6/uL
(4.70-6.10)
Hgb 10.6 L g/dL
(13.0-18.0)
Hct 32.6 L %
(39.0-52.0)
MCHC 32.5 L g/dL
(33.0-37.0)
RDW 15.9 H %
(11.5-14.5)
MPV 11.1 H fL
(7.4-10.4)
Abs Immat Gran (auto) 0.1 H 10^3/uL
(0-0.05)
Absolute Neuts (auto) 6.8 H 10^3/uL
(1.4-6.5)
Absolute Monos (auto) 1.0 H 10^3/uL
(0.1-0.6)
Immature Gran % 0.8 H %
(0-0.5)
Monocytes % 9.5 H %
(1.7-9.3)
Chloride 109 H mmol/L
(98-107)
BUN 27 H mg/dl
(9-20)
Creatinine 1.4 H mg/dL
(0.7-1.3)
Glucose 168 H mg/dl
(70-99)
ALT 60 H U/L
(0-50)
Total Protein 6.1 L g/dl
(6.3-8.2)
10/11/24 11:38
10/11/24 11:38
Vital Signs
Initial and Last Documented VS:
Initial Vital Signs
Temp Pulse Resp BP Pulse Ox
98.1 F 74 16 91/57 86
10/11/24 11:17 10/11/24 11:17 10/11/24 11:17 10/11/24 11:17 10/11/24 11:17
Last Documented Vital Signs
Temp Pulse Resp BP Pulse Ox
98.1 F 60 14 119/63 92
10/11/24 11:17 10/11/24 13:30 10/11/24 13:30 10/11/24 13:00 10/11/24 13:30
MDM/Problems Addressed
Differential Diagnosis Includes:
Patient is a 74-year-old male with history of orthostatic hypotension on midodrine, A-fib on Xarelto, diabetes, CHF with preserved EF presenting to the emergency department with dizziness weakness and shortness of breath. On arrival patient was
initially hypoxic however during my evaluation in the room while patient was sitting his oxygen was in the high 90s. He is hypotensive with blood pressure in the 90s. Exam did show crackles at the right lower base. Differential is broad but
consists of pneumonia versus CHF. Considered PE given the hypotension and hypoxia. Per chart review patient was admitted in November 2023 and at that time there was consideration for amiodarone induced lung fibrosis. Given the unclear etiology will
obtain CT scan to further evaluate lung parenchyma and evaluate PE. Also check blood work and EKG. Will give small fluid bolus as he does appear slightly dry on exam.
*Critical Care Note
Total Time (30-74mins, 75-104mins- exclusive of procedures): Not Applicable
Update Note
Update Note:
CT scan per my interpretation with no saddle PE. Per the official read no PE. emphysematous changes seen. No significant pulmonary vascular congestion. Troponin is normal. BNP is elevated.
His blood pressure has improved after the small fluid bolus. Given the hypoxia upon ambulation patient will need admission. Discussed with hospitalist accepted patient to their service.
ED Attending Note
-
Portions of this chart may have been created with voice recognition software.� Occasional wrong word or��sound alike� substitutions may have occurred due to the inherent limitations of voice recognition software.
Discharge Plan
Departure
Patient Disposition: Admit
Date of Disposition: 10/11/24
Time of Disposition: 15:12
Presentation/result/management discussed w/ accepting MD/DO: Hospitalist
Discharge Problem:
Shortness of breath, Hypoxia
Prescriptions:
No Action
atorvastatin 20 MG tablet
20 mg PO QPM
amiodarone [Pacerone] 200 MG tablet
200 mg PO DAILY
levothyroxine 75 MCG tablet
75 mcg PO DAILY
insulin aspart U-100 [Novolog FlexPen U-100 Insulin] 300 UNITS/3 ML insulin pen
0 sliding scale dose SC AC
Patient Comments:
150-175 8 units; 176-200 12 units; 201-224 16 units; 225-250 20 units; 251-275 24 units; 276- 28 units
magnesium oxide 400 mg magnesium Tablet
400 mg PO BID Qty: 0
potassium chloride 20 mEq tablet,ER particles/crystals
20 meq PO DAILY
Xarelto 20 mg tablet
20 mg PO QPM
insulin glargine [Lantus Solostar U-100 Insulin] 300 UNITS/3 ML insulin pen
14 units SC HS
latanoprost 0.005 % Drops
1 drp BOTH EYES HS
sennosides [senna] 8.6 mg Tablet
8.6 mg PO DAILYPRN PRN (Reason: constipation)
sodium chloride 1 gram Tablet
1,000 mg PO BID
ferrous sulfate 325 mg (65 mg iron) Tablet
325 mg PO DAILY
brimonidine 0.2 % Drops
1 drp BOTH EYES BID
dorzolamide 2 % Drops
1 drp BOTH EYES BID
cholecalciferol (vitamin D3) [Vitamin D3] 50 mcg (2,000 unit) Tablet
50 mcg PO DAILY
Rhopressa 0.02 % Drops
1 drp BOTH EYES BID
Ozempic 1 mg/dose (4 mg/3 mL) Pen Injector
1 mg SC SA
metoprolol succinate 50 mg tablet extended release 24 hr
100 mg PO DAILY
midodrine 5 mg tablet
5 mg PO TID@0800,1300,1800
Referrals:
Kong Rand CRNP [Family Provider, General]
Interventions
Interventions:
*Risk Screen - Suicide Last Done: 10/11/24 11:17
*Neglect/Abuse Screening Last Done: 10/11/24 11:17
ED- Cardiac Assessment Last Done: 10/11/24 11:34
ED- Pulmonary Assessment Last Done: 10/11/24 11:34
Discharge Date and Time
Print Language: NEPALESE
[2024-10-11 11:47] LABS: % Basophils 0.1 % (0-2); % Immature Granulocytes 0.8 % (0-0.5); % Lymphocytes 22.6 % (20.5-51.1); % Monocytes 9.5 % (1.7-9.3); Absolute Eosinophils 0.1 10^3/uL (0-0.7); Absolute Immature Granulocytes 0.1 10^3/uL (0-0.05); Absolute Lymphocytes 2.3 10^3/uL (1.2-3.4); Absolute Neutrophils 6.8 10^3/uL (1.4-6.5); Hematocrit 32.6 % (39.0-52.0); Hemoglobin 10.6 g/dL (13.0-18.0); Mean Corp Hgb Conc. 32.5 g/dL (33.0-37.0); Mean Corpuscular Hgb 30.3 pg (27.0-31.0); Mean Corpuscular Volume 93.1 fL (80.0-94.0); Mean Platelet Volume 11.1 fL (7.4-10.4); Nucleated Red Blood Cells % 0 % (-); Platelet Count 267 10^3/uL (130-400); Red Cell Dist. Width 15.9 % (11.5-14.5); White Blood Cell Count 10.3 10^3/uL (4.8-10.8)
[2024-10-11 12:17] LABS: ALT (SGPT) 60 U/L (0-50); AST (SGOT) 34 U/L (17-59); Albumin 3.5 g/dl (3.5-5.0); Alkaline Phosphatase 112 U/L (38-126); Blood Urea Nitrogen 27 mg/dl (9-20); Carbon Dioxide 24 mmol/L (22-30); Chloride 109 mmol/L (98-107); Estimated Creatinine Clearance 43 ml/min; Glucose 168 mg/dl (70-99); Potassium 4.8 mmol/L (3.5-5.1); Sodium 138 mmol/L (135-145); Total Bilirubin 0.8 mg/dl (0.2-1.3); Total Protein 6.1 g/dl (6.3-8.2); eGFR 52.09
[2024-10-11] MEDS: NSS 250 IV (12:28)
[2024-10-11 13:30] LABS: NT-proBNP 1020 pg/ml; Troponin I < 0.012 ng/ml
[2024-10-11 13:40] LABS: COVID-19 Antigen Negative (Negative)
--- NOTE | 2024-10-11 15:27 | HPS.HSE ---
Family Physician
-
Family Physician: KIMBERLY Chao
Chief Complaint
-
SoB and
History of Present Illness
HPI
74M Qatari speaker, with Niece who translates HX centrilobular emphysema, chr interstitial lung changes, Home O2 , diphragmatic calcification suspected occupational lungdz, Suspected HFpEF, PPM, Prx AF, chr Eliquis, IDDM, Hypothyroid, HTN seen at
ER
- SOB and ambulatory hypoxia.
- HX HFpEF but not on diuretics
- sob upon exertion and pulse ox in the 70s at home.
- recently was admitted for PNA but finished abx/steroids.
- Initially he was hypotensive o the 90s that i gave him 250cc fluids and bp has now improved to low 100s.
- Normal TPNI and pro BNP
- NEG CTA for PE and no significant pulm vasc congestion.
Medical History
Past Medical History
Past Medical History: Reports Other
Past Surgical History: Reports Cardiac (pacemaker ) and Other (gastric ulcer repair)
Social History
Tobacco: Former Smoker
Alcohol: None
Living: With Family
Family History
Family History: Not pertinent
Allergies / Home Medications
Allergies reflects when Allergies were last updated in [facility].
Home Medications with original date entered in [facility]
Allergy/Medication List:
Allergies
Allergy/AdvReac Type Severity Reaction Status Date / Time
No Known Allergies Allergy Unverified 05/25/21 14:04
Home Medications
amiodarone 200 mg tablet (Pacerone) 200 mg PO DAILY Heart disease/condition 05/25/21
atorvastatin 20 mg tablet 20 mg PO QPM High cholesterol 05/25/21
famotidine 20 mg tablet (Pepcid AC) 20 mg PO DAILY Gastrointestinal issue 05/25/21
insulin aspart U-100 100 unit/mL (3 mL) subcutaneous pen (Novolog FlexPen U-100 Insulin aspart) 0 sliding scale dose SC AC Diabetes 05/25/21
levothyroxine 75 mcg tablet 75 mcg PO DAILY Thyroid 05/25/21
magnesium oxide 400 mg PO BID Supplement ##0 05/25/21
pyridostigmine bromide 180 mg tablet,extended release 180 mg PO DAILY 05/25/21
escitalopram oxalate 10 mg tablet 10 mg PO DAILY 11/07/23
insulin glargine 100 unit/mL (3 mL) subcutaneous pen (Lantus Solostar U-100 Insulin) 12 units SC HS Diabetes 11/07/23
melatonin 3 mg tablet 3 mg PO HS 11/07/23
metoprolol succinate 100 mg tablet,extended release 24 hr 100 mg PO BID 11/07/23
midodrine 5 mg tablet 5 mg PO TID@0800,1300,1800 11/07/23
oxybutynin chloride 5 mg tablet,extended release 24 hr 5 mg PO DAILY 11/07/23
potassium chloride 20 mEq tablet,extended release(part/cryst) 20 meq PO DAILY 11/07/23
rivaroxaban 20 mg tablet (Xarelto) 20 mg PO DAILY 11/07/23
semaglutide 1 mg/dose (4 mg/3 mL) subcutaneous pen injector (Ozempic) 4 mg SC TU 11/07/23
Review of Systems
-
Constitutional: Reports No Symptoms
EENT: Reports No Symptoms
Respiratory: Reports See HPI
Cardiac: Reports No Symptoms
Abdomen/GI: Reports No Symptoms
: Reports No Symptoms
Musculoskeletal: Reports No Symptoms
Skin: Reports No Symptoms
Neurological: Reports No Symptoms
Endocrine: Reports No Symptoms
Hematologic/Lymphatic: Reports No Symptoms
Psych: Reports No Symptoms
Physical Exam
Vital Signs
Vital Signs
Temp Pulse Resp BP Pulse Ox
98.1 F 60 14 119/63 92
10/11/24 11:17 10/11/24 13:30 10/11/24 13:30 10/11/24 13:00 10/11/24 13:30
Physical Exam
General: Well Developed, Well Nourished and No Apparent Distress
HEENT: NormoCephalic, Moist mucous membranes and Atraumatic
Respiratory: Clear
Cardiac: S1/S2 and Regular Rhythm; No Murmur or Rub
GI: Soft, Non Tender, Non Distended and Normal Bowel Sounds; No Organomegaly
Rectal: Deferred by Provider
Musculoskeletal: No Clubbing, No Cyanosis and No Edema
Skin: No Rash
Neuro: Nonfocal/grossly intact
Laboratory Results
-
10/11/24 11:38
10/11/24 11:38
Laboratory Results
Total Bilirubin 0.8 mg/dl (0.2-1.3) 10/11/24 11:38
AST 34 U/L (17-59) 10/11/24 11:38
ALT 60 U/L (0-50) H 10/11/24 11:38
Alkaline Phosphatase 112 U/L (38-126) 10/11/24 11:38
Troponin I < 0.012 ng/ml 10/11/24 12:58
Impression/Plan
-
Wt
11/10/23
06:00 11/12/23
06:00 10/11/24
11:48
Actual Weight 73.028 kg 72.178 kg 71.6 kg
Vital Signs
Temp Pulse Resp BP Pulse Ox
98.1 F 60 14 95/60 --> 119/63 92
10/11/24 11:17 10/11/24 13:30 10/11/24 13:30 10/11/24 13:00 10/11/24 13:30
11/08/23 11/13/23 10/11/24
10:20 06:15 11:38
Hgb 15.8 10.6 L
Plt Count 223 267
BUN 31 H 27 H
Creatinine 1.0 1.4 H
eGFR > 60.00 52.09
Troponin I < 0.012
Mpb-K-Wigjjxyxnmm Pept 536 1020
10/11/24 CTA of the chest with intravenous contrast.
1. There is no CT evidence of pulmonary embolism.
2. There are emphysematous changes
3. There is new compression of the body of T12
11/13/23 CT Chest W/o Iv Contrast
There is no evidence of acute pathology
Mild centrilobular emphysema
11/10/23 TTE
LV ejection fraction is 50-55%
Normal diastolic function.
Normal biventricular size and systolic function without regional wall motion abnormality.
No significant valvular disease.
Dilated aortic root at 4.9cm.
No prior study available for comparison.
Last hospitalist admission: 11/08/2023 - 11/13/2023
DISCHARGE DIAGNOSES:
1. Acute hypoxic respiratory insufficiency, possibly due to diastolic congestive heart failure, also in the settings of
orthostasis.
2. Symptomatic hypoglycemia.
3. Acute urinary retention requiring Rico catheter placement.
OTHER CONDITIONS
1. Essential hypertension.
2. Insulin-requiring diabetes.
3. Myasthenia gravis.
4. Paroxysmal atrial fibrillation with sick sinus syndrome. Patient with pacemaker in place.
5. Anticoagulation with Xarelto.
6. Coronary artery disease.
7. Former smoker.
8. History of occupational exposure.
ASSESSMENT & PLAN
Pending Rx reconciliation
SOB and ambulatory hypoxia.
Acute on chronic hypoxic RF on home O2
Suspect multifactorial: mild Interstitial lung dz+ centrilobular emphysema +/_ AE HFpEF
- Prior HX Pul note suggest nocturnal oximetry WNL overnight from 11/08 - 11/10/2023 with SpO2 <89% of 1 min, 14 seconds
-11/11/2023 PFTS: did not do maximal effort- but NO obstruction or restrictive defect seen.
- Diffusion capacity was moderately reduced at 42% predicted.
- Prior CXR read bu Pul suggest SOB and ambulatory hypoxia
- possible diaphragmatic calcifications, suspected occupational exposure history
- clinically not bronchospastic
- NEG CTC for PE, PNA
- NEG TPNI
- Cont DuoNeb qid and PRN
- No definitive indication for Steroids
- f/u serial PFT s to assess stability diffusion capacity
- Pul consult
JIMMIE - Cardiorenal due to HFpEF flare vs. vol centration vs HFoEF
Interval loosing weight without diuretics
- LV ejection fraction is 50-55% and Normal diastolic function as of November 2023
- interval elevated pro BNP ( mild)
- NO CTC evidence of pul edema
- Hold of IV Diuretics for now
- CBC card consult
IDDM
- cont MELTER ASSISTANT Lantus/Aspart
- Held Ozempic
- add ISS low
HLD on Atorvastatin
Hypothyroidism
-Continue levothyroxine
HX essential Hypertension
AV paced rhythm
- cont Amiodarone and Metoprolol
HX Myasthenia Gravis on Pyridostigmine
Midodrine dependent chr hypotension
DVT Px: on Xarelto
Code: full code
IP TLM
[2024-10-11 17:59] LABS: Glucose - Point of Care 145 mg/dl (70-99)
[2024-10-11] MEDS: XARELTO 20 MG PO (18:08)
[2024-10-11] MEDS: LIPITOR 20 MG PO (18:09)
--- NOTE | 2024-10-11 18:10 | PTCARENOTE ---
Received patient from ED via stretcher. Pt AAOX3. Portuguese speaking. Pox: 97% RA. Patient denies SOB. Bed alarm on. Family at bedside. Call wiggins within reach. Plan of care ongoing.
[2024-10-11] MEDS: DUONEB 3 ML INH (19:34)
[2024-10-11] MEDS: SODIUM CHLORIDE 1000 GRAM PO (20:42)
[2024-10-11] MEDS: ALPHAGAN 0.2% EYE DROPS 1 DROP BOTH EYES (20:43)
[2024-10-11] MEDS: TRUSOPT 2% OPHTHALMIC SOLUTION 1 DROP BOTH EYES (20:43)
[2024-10-11] MEDS: XALATAN OPHTHALMIC SOLUTION 1 DROP BOTH EYES (20:43)
[2024-10-11 21:14] LABS: Glucose - Point of Care 237 mg/dl (70-99)
[2024-10-11] MEDS: LANTUS 0.14 UNITS SC (21:29)
--- NOTE | 2024-10-11 22:38 | PTCARENOTE ---
Patients son requesting specific timing for patients eye drops. Family wants to ensure they are spread out enough for effectiveness. (at least 5 mins apart from each other)
brimonidine BID before breakfast & dinner
rhopressa (pt own med, will bring in) before bed once a day
lantaprost before bed once a day
dorzolamide BID after breakfast & dinner
will remind following nurse and request an adjustment in schedule.
[2024-10-12] VITALS (9 sets, daily range): BP systolic 72–117; BP diastolic 46–65; PULSE 85–106; O2SAT 96; BMI 25.0
[2024-10-12] MEDS: SYNTHROID 75 MCG PO (05:41)
[2024-10-12 07:10] LABS: % Basophils 0.2 % (0-2); % Eosinophils 1.4 % (0-6); % Immature Granulocytes 1.6 % (0-0.5); % Lymphocytes 22.3 % (20.5-51.1); % Monocytes 10.6 % (1.7-9.3); % Neutrophils 63.9 % (42.2-75.2); Absolute Eosinophils 0.1 10^3/uL (0-0.7); Absolute Immature Granulocytes 0.1 10^3/uL (0-0.05); Absolute Lymphocytes 1.9 10^3/uL (1.2-3.4); Absolute Monocytes 0.9 10^3/uL (0.1-0.6); Absolute Neutrophils 5.5 10^3/uL (1.4-6.5); Hematocrit 31.1 % (39.0-52.0); Hemoglobin 10.4 g/dL (13.0-18.0); Mean Corp Hgb Conc. 33.4 g/dL (33.0-37.0); Mean Corpuscular Hgb 30.8 pg (27.0-31.0); Nucleated Red Blood Cells % 0 % (-); Platelet Count 227 10^3/uL (130-400); Red Blood Cell Count 3.38 10^6/uL (4.70-6.10); Red Cell Dist. Width 15.6 % (11.5-14.5); White Blood Cell Count 8.6 10^3/uL (4.8-10.8)
[2024-10-12] MEDS: DUONEB 3 ML INH ×4 (07:31→19:41)
[2024-10-12 07:43] LABS: Blood Urea Nitrogen 16 mg/dl (9-20); Calcium 8.8 mg/dl (8.4-10.2); Carbon Dioxide 25 mmol/L (22-30); Chloride 108 mmol/L (98-107); Estimated Creatinine Clearance 52 ml/min; Glucose 139 mg/dl (70-99); Potassium 4.2 mmol/L (3.5-5.1); Sodium 137 mmol/L (135-145); eGFR > 60.00
[2024-10-12] MEDS: ALPHAGAN 0.2% EYE DROPS 1 DROP BOTH EYES ×2 (07:53→17:10)
[2024-10-12 08:16] LABS: Glucose - Point of Care 184 mg/dl (70-99)
[2024-10-12 08:47] LABS: Glycohemoglobin (HgbA1c) 7.1 % (4.0-5.6)
[2024-10-12] MEDS: SODIUM CHLORIDE PO (08:58)
[2024-10-12] MEDS: NOVOLOG FLEXPEN-LOW RESISTANCE 1 UNITS SC (08:58)
[2024-10-12] MEDS: SODIUM CHLORIDE 1 GRAM PO ×2 (08:58→21:40)
--- NOTE | 2024-10-12 09:17 | CON.PUL ---
Consultation
Consultation Request
Date/Time Consultation Requested: 10/12/24
Date/Time Consultation Performed: 10/12/24
Performing Provider: Flor
Reason for Consultation: SOB
Medical History
-
History of Present Illness:
Patient is a 74-year-old male with previous history of mild emphysema, former smoking, heart failure, A-fib on Eliquis, diabetes presenting from home for shortness of breath and ambulatory hypoxemia. He was reportedly in the 70s on pulse ox at
home, on arrival was 86% on room air. Initial imaging demonstrating mild interstitial pattern, proBNP was 1020. He is now currently stable above 90% on room air but having hypotension even while supine in the 70s.
Had similar admission in November 2023 and had spirometry with normal function. He did not follow-up as an outpatient in our office for further workup.
Former smoker, 65-dywi-dcvh history, quit 15 years ago.
Past Medical History
Past Medical History: Other (see list below)
Social History
Tobacco: Former Smoker
Alcohol: None
Drug: None
Allergies / Home Medications
Allergies
Allergy/AdvReac Type Severity Reaction Status Date / Time
No Known Allergies Allergy Verified 10/11/24 11:20
Home Medications
�Medication �Instructions �Recorded �Confirmed �Last Taken �Type
amiodarone 200 mg tablet (Pacerone) 200 mg PO DAILY Arrhythmia 05/25/21 10/11/24 Unknown History
atorvastatin 20 mg tablet 20 mg PO QPM High cholesterol 05/25/21 10/11/24 Unknown History
insulin aspart U-100 100 unit/mL 0 sliding scale dose SC AC Diabetes 05/25/21 10/11/24 Unknown History
(3 mL) subcutaneous pen (Novolog
FlexPen U-100 Insulin aspart)
levothyroxine 75 mcg tablet 75 mcg PO DAILY Thyroid 05/25/21 10/11/24 Unknown History
magnesium oxide 400 mg PO BID Supplement ##0 05/25/21 10/11/24 10/11/24 History
insulin glargine 100 unit/mL (3 14 units SC HS Diabetes 11/07/23 10/11/24 10/10/24 History
mL) subcutaneous pen (Lantus
Solostar U-100 Insulin)
potassium chloride 20 mEq 20 meq PO DAILY Electrolyte 11/07/23 10/11/24 Unknown History
tablet,extended release(part/cryst) Repletion
rivaroxaban 20 mg tablet (Xarelto) 20 mg PO QPM Blood Clot 11/07/23 10/11/24 Unknown History
Prevention/Tx
brimonidine 0.2 % eye drops 1 drp BOTH EYES BID Eye Condition 10/11/24 10/11/24 10/11/24 History
cholecalciferol (vitamin D3) 50 50 mcg PO DAILY Supplement 10/11/24 10/11/24 10/11/24 History
mcg (2,000 unit) tablet (Vitamin
D3)
dorzolamide 2 % eye drops 1 drp BOTH EYES BID Eye Condition 10/11/24 10/11/24 10/11/24 History
ferrous sulfate 325 mg (65 mg 325 mg PO DAILY Supplement 10/11/24 10/11/24 Unknown History
iron) tablet
latanoprost 0.005 % eye drops 1 drp BOTH EYES HS Eye Condition 10/11/24 10/11/24 10/10/24 History
metoprolol succinate 50 mg 100 mg PO DAILY Blood Pressure 10/11/24 10/11/24 Unknown History
tablet,extended release 24 hr
midodrine 5 mg tablet 5 mg PO TID@0800,1300,1800 Fluid 10/11/24 10/11/24 10/11/24 History
Retention/Swelling
netarsudil 0.02 % eye drops 1 drp BOTH EYES BID Eye Condition 10/11/24 10/11/24 10/11/24 History
(Rhopressa)
semaglutide 1 mg/dose (4 mg/3 mL) 1 mg SC SA Diabetes 10/11/24 10/11/24 10/09/24 History
subcutaneous pen injector (Ozempic)
sennosides 8.6 mg tablet (senna) 8.6 mg PO DAILYPRN PRN constipation 10/11/24 10/11/24 Unknown History
sodium chloride 1 gram tablet 1,000 mg PO BID Supplement 10/11/24 10/11/24 Unknown History
Review of Systems
-
History Source: Patient
All other systems: Negative unless noted
Vitals / Labs / Diagnostic Testing
Vital Signs
Temp Pulse Resp BP Pulse Ox
98 F 88 16 80/51 95
10/12/24 07:35 10/12/24 08:32 10/12/24 07:46 10/12/24 08:32 10/12/24 07:46
Lab Data
10/12/24 06:45
10/12/24 06:45
Microbiology
10/11/24 12:58 Nasal Swab Influenza Types A & B (VANI) - Final
Negative for Influenza A & B, NAAT
Negative results must be combined with clinical observations
and patient history.
Nucleic Acid Amplification test (NAAT)performed on the
[employer] platform.
Diagnostic Testing:
Physical Exam
-
HEENT: Normocephalic, Anicteric and Moist Mucous Membranes
Cardiovascular: S1/S2 and Regular Rhythm
Respiratory: Clear and Non-Labored Respirations
GI: Soft, Non Distended and Non Tender
Neurology: Awake, Alert, Oriented and No Motor Deficits
Skin: Warm, Dry and Good Color
General: Comfortable and Other (NAD)
Assessment
-
Patient is a 74-year-old male with previous history of mild emphysema, former smoking, heart failure, A-fib on Eliquis, diabetes presenting from home for shortness of breath and ambulatory hypoxemia. He was reportedly in the 70s on pulse ox at
home, on arrival was 86% on room air. Initial imaging demonstrating mild interstitial pattern, proBNP was 1020. He is now currently stable above 90% on room air but having hypotension even while supine in the 70s. We are consulted for evaluation.
Acute hypoxic respiratory insufficiency, 86% room air, now 94% on room air
Possible interstitial changes per chest x-ray with minimal reticular changes seen mainly in the bases of CT chest, unchanged from prior
Hypotension, 70s
Hyperglycemia
JIMMIE, creatinine 1.4
Anemia, hemoglobin 10-prior 15.8
Conditions present prior to admission
History of myasthenia gravis (details unclear)
Hypertension
Hyperlipidemia
Diabetes
Hypothyroidism
History of atrial fibrillation
Pacemaker in place
History of coronary disease, [place] (per son)
Mild emphysema on CT
GERD with gastric ulcer repair in the past (details unclear)
30+ pack-year history of smoking, quit around 2003
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
Plan
At this time, patient appears to be comfortable and is without complaints.
Now >95% on RA, no further hypoxemia
Apparently patient has seen pulmonary in the past in [place] but for unclear reasons--he does not have active nurse transplant now
Had similar admission in November 2023 and had spirometry with normal function. He did not follow-up as an outpatient in our office for further workup.
Former smoker, 40-sbin-sgdl history, quit 15 years ago.
Smoking history noted. Patient not on any inhalers.
Has mild emphysema on CT
CT imaging appears mostly stable
Some interstitial changes, proBNP 1020
Cards eval obtained
ECHO reviewed/negative
He is currently on amiodarone and should be getting yearly PFTs
Given lack of symptoms, workup can be deferred as outpatient
This was reviewed with patient today
Hypotension ongoing, add midodrine
Possible dehydration
Anemia noted as well, check iron panel
Check TSH, AM cortisol
Home O2 assessment eventually when hypotension resolved
Prior testing in November: [place] SpO2 is 91% on room air. Patient does not require home oxygen therapy at this time.
His nocturnal oximetry WNL overnight from 11/08 - 11/10/2023 with time SpO2 <89% of 1 min, 14 seconds
Will need OP w/u for sleep apnea as well, PSG
Patient will require PT/OT evaluation
Discharge planning when BP improves
OP Pulmonary FU is needed
Diagnostic Data:
CT Chest 11-13-2023: There is no evidence of acute pathology; Mild centrilobular emphysema
Spirometry 11/11/23: FEV1 2.48L 85%, FVC 3.21L 82%, ratio 77
ECHO 11/10/23- Normal biventricular size and systolic function without regional wall motion abnormality. No significant valvular disease. Dilated aortic root at 4.9cm. No prior study available for comparison.
-----
Total time spent today was 75 minutes for this encounter. Time includes reviewing laboratory test/imaging results, reviewing pertinent medical records, obtaining and reviewing medical history, performing an appropriate exam, ordering medications,
tests and procedures. Time also includes documentation of this encounter, coordinating patient care and communicating with other healthcare professionals. Total time does not include separately billed tests performed on this date of service.
[2024-10-12] MEDS: TRUSOPT 2% OPHTHALMIC SOLUTION 1 DROP BOTH EYES ×2 (09:35→18:23)
--- NOTE | 2024-10-12 11:09 | CM ---
Patient Dutch speaking, spoke w/ patient's son, Jay, initial assessment completed. Patient is a 74M Dutch speaker, with Niece who translates HX centrilobular emphysema, chr interstitial lung changes, Home O2 , diphragmatic calcification
suspected occupational lungdz, Suspected HFpEF, PPM, Prx AF, chr Eliquis, IDDM, Hypothyroid, HTN seen at ER for SOB and ambulatory hypoxia.
Patient resides w/ spouse in a 2STH, 3 steps to enter. Patient is independent w/ use of RW, independent w/ ADLs. Has home O2 supplied by [facility], uses as needed. No SNF/HC hx reported.
Address, points of contact and insurance verified
PCP: Kong Rand
Pharmacy: [facility] pharmacy
PT eval ordered, will watch for any recommendations
Plan: CM will cont to follow for d/c planning
[2024-10-12] MEDS: PACERONE PO (11:21)
--- NOTE | 2024-10-12 11:21 | PTCARENOTE ---
Blood pressures continue to be low in the 70s. Cardiology and Pulmonary made aware. AM Toprol and Amiodarone held per Dr Rhoades order.
[2024-10-12 12:18] LABS: Glucose - Point of Care 217 mg/dl (70-99)
--- NOTE | 2024-10-12 12:31 | W.PN.CD ---
Today's Communication / Plan
-
Increase Midodrine to 10 TID
Review cardiology records when available
Watch volume status
Update echo
Impression / Plan
-
74 yo Finnish with some Bolivian skill. I spoke to his son. His son believes that his father has orthostasis on midodrine, AFib and VT (on Amio and Xarelto). Long-standing DM for many years. Admitted with weakness, dyspnea, and dizziness. Former
smoker.
Card is Wilber Collazo MD ([facility])
Dyspnea
- Suspect pulmonary etiology
- Cannot rule out HF
? Hx HFpEF, son did not mention that as one of his cardiac conditions
- Records requested
Weakness
Orthostasis, chronic, on home midodrine 5 TID
New anemia, son says 4 months ago Hgb was normal
Hx of VT
Hx of AFib
Dual chamber Biotronik ICD, placed at [facility] implanted 06/11/[address] Julian
- ICD interrogated today: No recent AFib/VT, underlying SB, monitor 170, VT/VF 200 bpm. DDDR 60-120 bpm. Leads battery normal. DAGO 5-7 years, Ap 94%, Websphere Portal Developer 17%.
Chronic anticoagulation
DM, long history
Lung disease
Chronic low dose amiodarone
Suggest:
ICD interrogation today was negative/normal device fxn and no recent VT/AFib
Agree with AM Cortisol check and if its not over 20-25 then ACTH stim test
Increase midodrine
Update echo
Will decrease metoprolol dose and place a hold parameter
Consider w/u of anemia
Records requested from Dr. Wilber Collazo ([facility] [employer])
Monitor volume status
Review records when available (we have requested)
Physical Exam
Vital Signs/Labs
Vital Signs
Temp Pulse Resp BP Pulse Ox
98.5 F 91 18 72/46 95
10/12/24 11:44 10/12/24 11:44 10/12/24 11:44 10/12/24 11:44 10/12/24 11:44
10/11/24 10/12/24 10/13/24
06:59 06:59 06:59
Actual Weight 70.261 kg
10/12/24 06:45
10/12/24 06:45
10/11/24
12:58
Idm-B-Sjuvrcojieh Pept 1020
LAB Results
10/11/24
12:58
Troponin I < 0.012
Data Reviewed
-
Date of Service: October 12, 2024
[2024-10-12] MEDS: ProAmatine 2.5 MG PO (12:58)
[2024-10-12] MEDS: NOVOLOG FLEXPEN-LOW RESISTANCE 2 UNITS SC ×2 (12:58→17:10)
[2024-10-12 13:08] LABS: TSH 2.14 uIU/ml (0.47-4.68)
[2024-10-12 13:16] LABS: Iron 76 ug/dl (49-181)
--- NOTE | 2024-10-12 13:17 | W.PN.HOSP.TC ---
Today's Communication/Plan
-
See plan
Assessment / Plan
Assessment / Plan
Impression:
Presentation with fatigue, dizziness and intermittent hypoxia
Orthostatic hypotension
JIMMIE improved with IV fluid bolus
Chronic anemia with significant hemoglobin drop from 15.8-10
Recent hospitalization at outside hospital as per son with pulmonary congestion possible pneumonia. Completed course of antibiotics and corticosteroids
Other conditions:
Essential hypertension.
CAD.
Atrial fibrillation
Anticoagulation with Xarelto
Pacemaker in place.
Emphysema
Occupational lung exposure.
GERD/PUD
30+ pack year history of smoking quit in 2003
Hypothyroidism
IDDM
Plan:
Fatigue, dizziness, intermittent hypoxia
Noted to be with orthostasis with SBP at 70s.
Clinically no evidence of volume overload or bronchospasm.
Doubt CHF exacerbation or COPD flare.
Transient hypoxia could be related to orthostasis.
CT chest negative for pulmonary embolism or parenchymal infiltrates
Echocardiogram pending
PPM interrogated with no abnormalities.
Workup for anemia as below
Preadmission midodrine increased to 10 mg 3 times daily
Question if orthostasis related to diabetic neuropathy
Chronic atrial fibrillation
PPM interrogated.
Continue amiodarone
Metoprolol dose reduced given orthostasis
Continue anticoagulation with Xarelto
CAD.
Chest pain-free on presentation
Echo pending.
Continue beta-evelin and statin
Normocytic anemia.
Patient denies any symptoms suggesting of acute/subacute blood loss.
Had been anticoagulated with Xarelto.
Prior history of PUD.
Remote colonoscopy
Check iron, B12 and folate levels.
Heme check stool.
Urinalysis rule out microhematuria.
GI evaluation
Initiate PPI
IDDM.
Home regimen including Lantus, Ozempic
Update hemoglobin A1c.
Continue Lantus
Continue basal bolus protocol adjusting the dose
Hypothyroidism on replacement
Update TSH
Check cortisol level
Anticipated Discharge: 24 - 48 hours
Subjective/Interval History
-
Date of Service: October 12, 2024
Objective Data
-
Labs:
Laboratory Results
10/12/24
06:45
WBC 8.6
Hgb 10.4 L
Hct 31.1 L
Plt Count 227
Sodium 137
Potassium 4.2
Chloride 108 H
Carbon Dioxide 25
BUN 16
Creatinine 1.1
Glucose 139 H
Calcium 8.8
Vital Signs:
Vital Signs
Temp Pulse Resp BP Pulse Ox
98.5 F 91 18 72/46 95
10/12/24 11:44 10/12/24 11:44 10/12/24 11:44 10/12/24 11:44 10/12/24 11:44
I&O
10/11/24 10/12/24 10/13/24
06:59 06:59 06:59
Output Total 1215 / 1215
Balance -1215 / -1215
Physical Exam
-
General: Well Developed and No Apparent Distress
HEENT: Normocephalic, Atraumatic and Moist Mucous Membranes
Respiratory: Clear to Auscultation
Cardiac: Regular Rhythm and S1/S2; Negative Murmur, Rub or Gallop
GI: Soft, Nontender, Nondistended and Normal Bowel Sounds; Negative Organomegaly
Rectal: Deferred by Provider
Musculoskeletal: No Clubbing, No Cyanosis and No Edema
Skin: Negative Rash
Neuro: Nonfocal/Grossly Intact
--- NOTE | 2024-10-12 13:20 | CON.GI ---
Addendum entered and electronically signed by Jaycob Soriano MD 10/13/24 05:47:
Patient seen and examined, agree with nurse practitioner note. The patient is a 74-year-old male with past medical history as noted presents with shortness of breath and hypoxia. We are consulted for anemia. He was noted to have outpatient
hemoglobin that had dropped and was started on oral iron, though iron studies were normal. Upon presentation he was found to have a hemoglobin of 10.4 with a normal MCV. Iron studies are normal, has heme-negative dark brown stool on rectal exam.
He denies any abdominal pain, nausea, vomiting, dysphagia, change in bowel habits. On exam he has no significant abdominal tenderness.
1. Anemia: Likely multifactorial, normocytic, with normal iron studies, B12 and folate, with multiple other comorbidities likely more anemia of chronic disease. He has heme-negative dark brown stool now, no signs of gross bleeding. With normal
iron studies, no gross bleeding and no GI symptoms we will hold on further GI workup for now. Will sign off now, though please call back with any further questions or signs of active bleeding.
For clarification the patient was seen on October 12, 2024.
Original Note:
Consultation
-
Date/Time Consultation Requested: 10/12/24 1300
Date/Time Consultation Performed: 10/12/24 1320
Requesting Provider: Deyvi Cardenas MD
Performing Provider: KIMBERLY Cox, Ezequiel Soriano MD
Reason for Consultation: Anemia
Medical History
Chief Complaint / HPI
Chief Complaint: shortness of breath, weakness
History of Present Illness:
Pt is a 74yo with hx afib on Xarelto, CAD, prior NV, pacer, GERD/PUD, HTN, hyperlipidemia, hypothyroidism, NIDDM on Ozempic, Myasthenia Gravis, prior tobacco use, emphysema presents with shortness of breath and hypoxemia. He had hbg 14.5- 15.8 in
2023 now with drop to 10 range and outpatient reported in 9 range. On review of chart pt with recent admission with PNA with steroid and antibiotic use at [place]. He continued with weakness and dizziness with fall with hypoxemia and asked to
eval for some drop in hbg. He is also noted with hypoxemia and hypotension on admission.
In review with patient and son no dysphagia, odynophagia, GERD, nausea, vomiting, abdominal pain, diarrhea, constipation, blood or black in stools. Possible hx colonoscopy in distant past and distant hx EGD years ago with PUD/
Past Medical History
Past Medical History: Arrhythmias (afib), CAD, GERD, HTN, Hypercholesterolemia, Hypothyroidism, NIDDM, NV and Other (myasthenia Gravis, PUD )
Past Surgical History: Cardiac (pacer)
Social History
Tobacco: Former Smoker
Alcohol: None
Drug: None
Personal:
Living: With Family
Employment: Retired
Family History
Family History: Other (no family hx GI issues )
Allergies / Home Medications
Allergy/AdvReac Type Severity Reaction Status Date / Time
No Known Allergies Allergy Verified 10/11/24 11:20
�Medication �Instructions �Recorded
amiodarone 200 mg tablet (Pacerone) 200 mg PO DAILY Arrhythmia 05/25/21
atorvastatin 20 mg tablet 20 mg PO QPM High cholesterol 05/25/21
insulin aspart U-100 100 unit/mL 0 sliding scale dose SC AC Diabetes 05/25/21
(3 mL) subcutaneous pen (Novolog
FlexPen U-100 Insulin aspart)
levothyroxine 75 mcg tablet 75 mcg PO DAILY Thyroid 05/25/21
magnesium oxide 400 mg PO BID Supplement ##0 05/25/21
insulin glargine 100 unit/mL (3 14 units SC HS Diabetes 11/07/23
mL) subcutaneous pen (Lantus
Solostar U-100 Insulin)
potassium chloride 20 mEq 20 meq PO DAILY Electrolyte 11/07/23
tablet,extended release(part/cryst) Repletion
rivaroxaban 20 mg tablet (Xarelto) 20 mg PO QPM Blood Clot 11/07/23
Prevention/Tx
brimonidine 0.2 % eye drops 1 drp BOTH EYES BID Eye Condition 10/11/24
cholecalciferol (vitamin D3) 50 50 mcg PO DAILY Supplement 10/11/24
mcg (2,000 unit) tablet (Vitamin
D3)
dorzolamide 2 % eye drops 1 drp BOTH EYES BID Eye Condition 10/11/24
ferrous sulfate 325 mg (65 mg 325 mg PO DAILY Supplement 10/11/24
iron) tablet
latanoprost 0.005 % eye drops 1 drp BOTH EYES HS Eye Condition 10/11/24
metoprolol succinate 50 mg 100 mg PO DAILY Blood Pressure 10/11/24
tablet,extended release 24 hr
midodrine 5 mg tablet 5 mg PO TID@0800,1300,1800 Fluid 10/11/24
Retention/Swelling
netarsudil 0.02 % eye drops 1 drp BOTH EYES BID Eye Condition 10/11/24
(Rhopressa)
semaglutide 1 mg/dose (4 mg/3 mL) 1 mg SC SA Diabetes 10/11/24
subcutaneous pen injector (Ozempic)
sennosides 8.6 mg tablet (senna) 8.6 mg PO DAILYPRN PRN constipation 10/11/24
sodium chloride 1 gram tablet 1,000 mg PO BID Supplement 10/11/24
Review of Systems
-
Unable to obtain full review of systems at this time due to: Language Barrier
History Source: Patient and Family
Constitutional: Reports Weight Loss (over time with ozempic )
EENT: Reports No Symptoms
Respiratory: Reports Trouble Breathing
Cardiac: Reports No Symptoms
Abdomen/GI: Reports No Symptoms
: Reports Frequency
Musculoskeletal: Reports No Symptoms
Skin: Reports No Symptoms
Neurological: Reports Dizzy (with fall) and Weakness
Endocrine: Reports No Symptoms
Hematologic/Lymphatic: Reports No Symptoms
Vital Signs
Temp Pulse Resp BP Pulse Ox
98.5 F 91 18 72/46 95
10/12/24 11:44 10/12/24 11:44 10/12/24 11:44 10/12/24 11:44 10/12/24 11:44
Physical Exam
Exam
General: Well Developed, Well Nourished and No Apparent Distress
HEENT: Normocephalic and Anicteric
Respiratory: Clear
Cardiac: Regular Rhythm
GI: Soft, Non Tender, Non Distended and Normal Bowel Sounds
Rectal: Hem Negative (dark brown with iron use )
Musculoskeletal: No Clubbing
Skin: Warm and Dry
Neuro: Awake, Alert and AO x 3
Psych: Calm
Results
WBC 8.6 10^3/uL (4.8-10.8) 10/12/24 06:45
Hgb 10.4 g/dL (13.0-18.0) L 10/12/24 06:45
Hct 31.1 % (39.0-52.0) L 10/12/24 06:45
MCV 92.0 fL (80.0-94.0) 10/12/24 06:45
Plt Count 227 10^3/uL (130-400) 10/12/24 06:45
Absolute Neuts (auto) 5.5 10^3/uL (1.4-6.5) 10/12/24 06:45
Sodium 137 mmol/L (135-145) 10/12/24 06:45
Potassium 4.2 mmol/L (3.5-5.1) 10/12/24 06:45
Chloride 108 mmol/L (98-107) H 10/12/24 06:45
Carbon Dioxide 25 mmol/L (22-30) 10/12/24 06:45
BUN 16 mg/dl (9-20) 10/12/24 06:45
Creatinine 1.1 mg/dL (0.7-1.3) 10/12/24 06:45
Calcium 8.8 mg/dl (8.4-10.2) 10/12/24 06:45
Total Bilirubin 0.8 mg/dl (0.2-1.3) 10/11/24 11:38
AST 34 U/L (17-59) 10/11/24 11:38
ALT 60 U/L (0-50) H 10/11/24 11:38
Alkaline Phosphatase 112 U/L (38-126) 10/11/24 11:38
Diagnostic Image Results:
10/11/24 CT Chest PE Study
1. There is no CT evidence of pulmonary embolism.
2. There are emphysematous changes
3. There is new compression of the body of T12
Prior GI Procedures:
EGD: ? years ago with PUD
Colonoscopy: ? years ago per patient
Assessment / Plan
-
Pt is a 74yo with hx afib on Xarelto, CAD, prior NV, pacer, GERD/PUD, HTN, hyperlipidemia, hypothyroidism, NIDDM on Ozempic, Myasthenia Gravis, prior tobacco use, emphysema presents with shortness of breath and hypoxemia. He had hbg 14.5- 15.8 in
2023 now with drop to 10 range and outpatient reported in 9 range. On review of chart pt with recent admission with PNA with steroid and antibiotic use. He continued with weakness and dizziness with hypoxemia. Pt was on PO iron with iron studies
not consistent with iron deficiency. He is also noted with hypoxemia and hypotension on admission.
-hypoxemia
-weakness/fall
-orthostasis with hypotension
-anemia with drop from prior baseline
-afib on Xarelto prior to admission
-distant hx PUD
other med problems:
-CAD with prior NV
-GERD
-HTN
-hyperlipidemia
-NIDDM on Ozempic prior to admission
-Myasthenia Gravis
- prior tobacco use
-emphysema
PLAN:
Etiology of weakness and dizziness unclear-- some drop in hbg from baseline but heme neg and iron studies not c/w iron deficiency doubt GI related
heme neg stool no signs of active bleeding-- stools are dark with use of iron
pt is noted with hypotension with BP to 70's and hypoxemia on admission with cards and pulm consult
iron studies not consistent with iron deficiency
cont medication adjustment
cont PPI
NSAID avoidance
Pt will need OP colonoscopy to screening -- sooner if signs of GI bleeding
will obtain records with prior hbg from Kong Briseno, KIMBERLY from [facility] of most recent hbg
cont diet as tolerated
son updated
-
-
Thank you for consultation and allowing me to participate in the patient's care. Please call the engagement liaison GI physician during the after hours with any questions or concerns.
[2024-10-12 13:25] LABS: Percent Saturation 25 % (20-50); Total Iron Binding Capacity 294 ug/dl (261-462)
[2024-10-12 13:55] LABS: Ferritin 31.3 ng/ml (17.9-464.0)
[2024-10-12 14:26] LABS: Folate 12.1 ng/ml (2.76-20); Vitamin B12 433 pg/ml (239-931)
[2024-10-12] MEDS: PROTONIX 40 MG PO (14:52)
[2024-10-12 15:09] LABS: Cortisol, Random 8.9 ug/dl
[2024-10-12 16:41] LABS: Glucose - Point of Care 220 mg/dl (70-99)
[2024-10-12] MEDS: XARELTO 20 MG PO (17:09)
[2024-10-12] MEDS: ProAmatine 10 MG PO (17:09)
[2024-10-12] MEDS: LIPITOR 20 MG PO (17:09)
[2024-10-12 21:26] LABS: Glucose - Point of Care 229 mg/dl (70-99)
[2024-10-12] MEDS: XALATAN OPHTHALMIC SOLUTION 1 DROP BOTH EYES (21:39)
[2024-10-12] MEDS: LANTUS 0.14 UNITS SC (21:40)
[2024-10-13] VITALS (7 sets, daily range): BP systolic 57–123; BP diastolic 37–59; BMI 24.9
[2024-10-13] MEDS: SYNTHROID 75 MCG PO (06:16)
[2024-10-13] MEDS: DUONEB 3 ML INH (08:07)
[2024-10-13 08:12] LABS: Glucose - Point of Care 165 mg/dl (70-99)
[2024-10-13] MEDS: PROTONIX 40 MG PO (08:18)
[2024-10-13] MEDS: SODIUM CHLORIDE 1 GRAM PO ×2 (08:18→21:38)
[2024-10-13] MEDS: TOPROL XL PO (08:19)
[2024-10-13] MEDS: ProAmatine 10 MG PO ×3 (08:19→17:13)
[2024-10-13] MEDS: PACERONE 200 MG PO (08:19)
[2024-10-13] MEDS: ALPHAGAN 0.2% EYE DROPS 1 DROP BOTH EYES ×2 (08:20→21:38)
[2024-10-13] MEDS: TRUSOPT 2% OPHTHALMIC SOLUTION 1 DROP BOTH EYES ×2 (08:20→21:38)
[2024-10-13 08:21] LABS: Cortisol, Random 12.2 ug/dl
[2024-10-13] MEDS: NOVOLOG FLEXPEN-LOW RESISTANCE 1 UNITS SC (08:21)
--- NOTE | 2024-10-13 09:44 | CM ---
Patient seen at bedside
called son Jay-will call back
PT rec ?HH, therapy to cont to follow
PLAN: tbd, follow hospital progress, CM to follow for needs
--- NOTE | 2024-10-13 10:47 | W.PN.CD ---
Addendum entered and electronically signed by Chandra Winkler MD 10/13/24 15:05:
I saw and examined the patient.
The SKEINER's note was reviewed and I agree with the note.
Comment:
74 y/o Montenegrin-speaking male (some Indonesian) with hx Takotsubo CM 2013, PAF on Xarelto, SSS (ICD in place with previously low EF per chart), aortic root dilation 4.8 cm, dyslipidemia, and orthostatic hypotension on midodrine. He is admitted with
weakness, dyspnea, and dizziness. Card is Wilber Collazo MD ([facility])- records in chart. ICD interrogation this admission is unremarkable. He remains orthostatic.
Physical exam with RRR, no murmurs, no edema, clear lungs
Orthostatic hypotension. Midodrine increased to 10 mg PO TID and metoprolol dosing decreased. TTE unremarkable. Give IVF given normal EF and encourage hydration. Check ACTH stim test.
pAF. Continue Amio, Metoprolol and Xarelot.
Addendum entered and electronically signed by KIMBERLY Lenz 10/13/24 11:56:
Patient's nurse alerted me that with walking patient had symptomatic orthostatic hypotension again. He is back in bed and feeling improved. Will give 500 ml bolus fluid. Also ordered compression socks.
Original Note:
Today's Communication / Plan
-
-continue increased midodrine and reduced metoprolol. Echo with normal EF and no significant valve disease. Will obtain EKG (I don't see one from this admission). Follow BP's and tele. Cortisol and anemia w/u per primary.
Impression / Plan
-
74 y/o Montenegrin-speaking male (some Indonesian) with hx Takotsubo CM 2013, PAF on Xarelto, SSS (ICD in place with previously low EF per chart) , aortic root dilation 4.8 cm, dyslipidemia, and orthostatic hypotension on midodrine. He is admitted with
weakness, dyspnea, and dizziness. Card is Wilber Collazo MD ([facility])- records in chart.
Dyspnea:
- Suspect pulmonary etiology- pulmonary is following
- cardiac records reviewed and as above
Orthostasis, chronic, on home midodrine 5 TID:
-midodrine increased to 10 mg PO TID and metoprolol dosing decreased, small fluid bolus given
-Echo 10/12/24: Normal biventricular size and systolic function without regional wall motion abnormality. LVEF 55-60%. No significant valvular disease Dilated aortic root (4.8 cm).
-Cortisol check and if its not over 20-25 (it is 12.2) then ACTH stim test- will defer this work-up to primary team
PAF:
-on amiodarone and metoprolol. Metoprolol dosing decreased. Follow telemetry.
-on Xarelto for OAC
New anemia, son says 4 months ago Hgb was normal: GI was consulted and signed off. Further w/u per primary.
Dual chamber Biotronik ICD, placed at [facility] implanted 06/11/[address] Julian
- ICD interrogated yesterday and per Dr. Rhoades/EP: No recent AFib/VT, underlying SB, monitor 170, VT/VF 200 bpm. DDDR 60-120 bpm. Leads battery normal. DAGO 5-7 years, Ap 94%, Consumer Recruiter 17%.
DM:
-on insulin
-management per primary
Lung disease:
-former smoker
-pulm following
Chronic low dose amiodarone: needs monitoring per protocol as OP, follows with EP Dr. Isaac
Hx of VT per yesterday's note, though I did not see that in cardiology OP note
Subjective:
Feels improved overall. He is primarily Montenegrin-speaking, but I did not feel that we could communicate fully, so his nurse who speaks Montenegrin helped translate.
Physical Exam
Vital Signs/Labs
Vital Signs
Temp Pulse Resp BP Pulse Ox
98.5 F 86 18 89/61 97
10/13/24 08:18 10/13/24 08:19 10/13/24 08:18 10/13/24 08:19 10/13/24 08:18
10/12/24 10/13/24 10/14/24
06:59 06:59 06:59
Actual Weight 70.261 kg 70.08 kg
10/12/24 06:45
10/12/24 06:45
TSH 2.14 uIU/ml (0.47-4.68) 10/12/24 06:45
10/11/24
12:58
Izz-C-Mkbxlezhwps Pept 1020
LAB Results
10/11/24
12:58
Troponin I < 0.012
Physical Exam
Constitutional: No acute distress
EENT: Anicteric
Cardiovascular: Rhythm & rate is regular
Respiratory: Respiratory effort normal and Lungs clear to auscul.
Neuro/Psych: AO x 3
Data Reviewed
-
Date of Service: October 13, 2024
EKG: Ordered by me and Other (some pacing, otherwise SR- to confirm with EKG this AM)
Echo: Report Reviewed by me (as noted)
Labs: Labs Reviewed by me
--- NOTE | 2024-10-13 11:12 | W.PN.PUL3 ---
Today's Communication / Plan
-
Remains hypotensive, despite midodrine, cards managing
He has since been stable on RA, unable to confirm desat as noted at home, unable to stand to perform 6MWT
Can obtain testing when able or as OP
Defer further management of BP to team
We discussed further testing as outpatient at discharge, including PFTs
No further recs at this time, we will sign off. Please call with questions
Assessment
-
Patient is a 74-year-old male with previous history of mild emphysema, former smoking, heart failure, A-fib on Eliquis, diabetes presenting from home for shortness of breath and ambulatory hypoxemia. He was reportedly in the 70s on pulse ox at
home, on arrival was 86% on room air. Initial imaging demonstrating mild interstitial pattern, proBNP was 1020. He is now currently stable above 90% on room air but having hypotension even while supine in the 70s. We are consulted for evaluation.
Acute hypoxic respiratory insufficiency, 86% room air, now 94% on room air
Possible interstitial changes per chest x-ray with minimal reticular changes seen mainly in the bases of CT chest, unchanged from prior
Hypotension, 70s
Hyperglycemia
JIMMIE, creatinine 1.4
Anemia, hemoglobin 10-prior 15.8
Conditions present prior to admission
History of myasthenia gravis (details unclear)
Hypertension
Hyperlipidemia
Diabetes
Hypothyroidism
History of atrial fibrillation
Pacemaker in place
History of coronary disease, ME (per son)
Mild emphysema on CT
GERD with gastric ulcer repair in the past (details unclear)
30+ pack-year history of smoking, quit around 2003
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
Plan
At this time, patient appears to be comfortable and is without complaints.
Now >95% on RA, no further hypoxemia
Apparently patient has seen pulmonary in the past in [place] but for unclear reasons--he does not have active [facility] assisted living now
Had similar admission in November 2023 and had spirometry with normal function. He did not follow-up as an outpatient in our office for further workup.
Former smoker, [id number] history, quit 15 years ago.
Smoking history noted. Patient not on any inhalers.
Has mild emphysema on CT
CT imaging appears mostly stable
Some interstitial changes, proBNP 1020
Cards eval obtained
ECHO reviewed/negative
He is currently on amiodarone and should be getting yearly PFTs
Given lack of symptoms, workup can be deferred as outpatient
This was reviewed with patient today
Hypotension ongoing, continue midodrine
Possible dehydration
Anemia noted as well, check iron panel
Check TSH, AM cortisol--normal
Home O2 assessment eventually when hypotension resolved
Prior testing in November: [place] SpO2 is 91% on room air. Patient does not require home oxygen therapy at this time.
His nocturnal oximetry WNL overnight from 11/08 - 11/10/2023 with time SpO2 <89% of 1 min, 14 seconds
Will need OP w/u for sleep apnea as well, PSG
Patient will require PT/OT evaluation
Discharge planning when BP improves
OP Pulmonary FU is needed
Diagnostic Data:
CT Chest 11-13-2023: There is no evidence of acute pathology; Mild centrilobular emphysema
Spirometry 11/11/23: FEV1 2.48L 85%, FVC 3.21L 82%, ratio 77
ECHO 11/10/23- Normal biventricular size and systolic function without regional wall motion abnormality. No significant valvular disease. Dilated aortic root at 4.9cm. No prior study available for comparison.
-----
Total time spent today was 51 minutes for this encounter. Time includes reviewing laboratory test/imaging results, reviewing pertinent medical records, obtaining and reviewing medical history, performing an appropriate exam, ordering medications,
tests and procedures. Time also includes documentation of this encounter, coordinating patient care and communicating with other healthcare professionals. Total time does not include separately billed tests performed on this date of service.
Subjective Data
-
Date of Service:
Date of Service: October 13, 2024
Chief Complaint: Pulmonary Follow Up
Subjective:
Still remains hypotensive despite midodrine
Unable to walk, confirm hypoxemia
He currently denies any SOB
Objective Data
Data Reviewed
Vital Signs / I&O / Oxygen:
Vital Signs
Temp Pulse Resp BP Pulse Ox
98.5 F 86 18 89/61 97
10/13/24 08:18 10/13/24 08:19 10/13/24 08:18 10/13/24 08:19 10/13/24 08:18
Intake and Output
10/12/24 10/13/24 10/14/24
06:59 06:59 06:59
Intake Total 480 / 480
Output Total 1215 / 1215 675 / 675 160 / 160
Balance -1215 / -1215 -195 / -195 -160 / -160
SaO2 97
Physical Exam
General: Comfortable and Other (NAD)
HEENT: Normocephalic, Anicteric and Moist Mucous Membranes
Cardiovascular: S1-S2 and Regular Rhythm
Respiratory: Clear and Non-Labored Respirations
GI: Soft, Non Distended and Non Tender
Neurology: Awake, Alert, Oriented and No Motor Deficits
Skin: Warm, Dry and Good Color
Labs/Micro/Reports
Lab Data
10/12/24 06:45
10/12/24 06:45
Microbiology
10/11/24 12:58 Nasal Swab Influenza Types A & B (VANI) - Final
Negative for Influenza A & B, NAAT
Negative results must be combined with clinical observations
and patient history.
Nucleic Acid Amplification test (NAAT)performed on the
Orchestrate platform.
[2024-10-13] MEDS: DUONEB INH (11:33)
[2024-10-13] MEDS: ProAmatine 5 MG PO (11:37)
[2024-10-13 11:41] LABS: Glucose - Point of Care 242 mg/dl (70-99)
--- NOTE | 2024-10-13 11:58 | PTCARENOTE ---
Addendum entered by Andriy Carballo RN 10/13/24 17:29:
blood sugar 248
Addendum entered by Andriy Carballo RN 10/13/24 12:03:
blood sugar was 242 and ekg read a paced rhythm.
Original Note:
This Rn was assisting pt with ambulation, pt reported feeling dizzy/lightheaded. pt assisted into chair. Bp obtained and was low at 57/37 with hr at 100. pt safely assisted into bed with RN help x2. pt placed into a reverse reverse trendelenburg
position, tubi milk house worker placed and PRN Midodrine administered per order. Jessica Mcbride made aware from cards. md dao made aware as well. pts bp 81/46 hr 71 s/p interventions. pt reported symptoms improved. awaiting further orders. bed low,
rails up x3, bed alarm in place, call wiggins in hand. plan of care continues to be followed.
--- NOTE | 2024-10-13 12:10 | RESPNOTE ---
6 minute walk test ordered by MD is unable to be done at this time. RN attempted to get the patient up to walk and became dizzy and light headed with a systolic blood pressure in the 50's. patient placed back in bed in Trendelenburg position.
patient unstable for a walk at this time.
[2024-10-13 12:16] LABS: Glucose - Point of Care 248 mg/dl (70-99)
[2024-10-13] MEDS: NSS 500 IV (12:20)
[2024-10-13] MEDS: NOVOLOG FLEXPEN-LOW RESISTANCE 2 UNITS SC ×2 (12:39→17:12)
--- NOTE | 2024-10-13 14:57 | W.PN.HOSP.TC ---
Today's Communication/Plan
-
Remains orthostatic.
Gentle hydration
Adjust midodrine dose
Noted with marginally low random serum cortisol with unknown clinical significance. Will check ACTH stim test
Assessment / Plan
Assessment / Plan
Impression:
Presentation with fatigue, dizziness and intermittent hypoxia
Orthostatic hypotension
JIMMIE improved with IV fluid bolus
Chronic anemia with significant hemoglobin drop from 15.8-10
Recent hospitalization at outside hospital as per son with pulmonary congestion possible pneumonia. Completed course of antibiotics and corticosteroids
Other conditions:
Essential hypertension.
CAD.
Atrial fibrillation
Anticoagulation with Xarelto
Pacemaker in place.
Emphysema
Occupational lung exposure.
GERD/PUD
30+ pack year history of smoking quit in 2003
Hypothyroidism
IDDM
Plan:
Fatigue, dizziness, intermittent hypoxia
Noted to be with orthostasis with SBP at 70s.
Clinically no evidence of volume overload or bronchospasm.
Doubt CHF exacerbation or COPD flare.
Transient hypoxia could be related to orthostasis.
CT chest negative for pulmonary embolism or parenchymal infiltrates
Echocardiogram with preserved biventricular function
PPM interrogated with no abnormalities.
Workup for anemia as below
Preadmission midodrine increased to 10 mg 3 times daily
Question if orthostasis related to diabetic neuropathy
Continue Tubigrip
Random serum cortisol is on the lower side. This is of unknown clinical significance. Will order ACTH stim test
Chronic atrial fibrillation
PPM interrogated.
Continue amiodarone
Metoprolol dose reduced given orthostasis
Continue anticoagulation with Xarelto
CAD.
Chest pain-free on presentation
Echo pending.
Continue beta-evelin and statin
Normocytic anemia.
Patient denies any symptoms suggesting of acute/subacute blood loss.
Had been anticoagulated with Xarelto.
Prior history of PUD.
Remote colonoscopy
Check iron, B12 and folate levels.
Heme check stool negative
Sufficient iron and B12 stores
Urinalysis with no hematuria
Initiated on PPI prophylactically
GI input appreciated with recommendation of outpatient workup
IDDM.
Home regimen including Lantus, Ozempic
Hemoglobin levels 7.1
Continue Lantus
Continue basal bolus protocol adjusting the dose
Hypothyroidism on replacement
TSH within normal limits
Anticipated Discharge: 24 - 48 hours
Subjective/Interval History
-
Date of Service: October 13, 2024
Objective Data
-
Vital Signs:
Vital Signs
Temp Pulse Resp BP Pulse Ox
98.2 F 74 18 114/55 97
10/13/24 11:55 10/13/24 13:07 10/13/24 11:55 10/13/24 13:07 10/13/24 11:55
I&O
10/12/24 10/13/24 10/14/24
06:59 06:59 06:59
Intake Total 480 / 480 500 / 500
Output Total 1215 / 1215 675 / 675 175 / 175
Balance -1215 / -1215 -195 / -195 325 / 325
Physical Exam
-
General: Well Developed and No Apparent Distress
HEENT: Normocephalic, Atraumatic and Moist Mucous Membranes
Respiratory: Clear to Auscultation
Cardiac: Regular Rhythm and S1/S2; Negative Murmur, Rub or Gallop
GI: Soft, Nontender, Nondistended and Normal Bowel Sounds; Negative Organomegaly
Rectal: Deferred by Provider
Musculoskeletal: No Clubbing, No Cyanosis and No Edema
Skin: Negative Rash
Neuro: Nonfocal/Grossly Intact
--- NOTE | 2024-10-13 16:03 | VATNOTE ---
Spoke with Dr. Cardenas per ACTH cortisol stimulation study: per Dr. Cardenas, it was intended to be ordered for tomorrow AM.
[2024-10-13 17:12] LABS: Glucose - Point of Care 221 mg/dl (70-99)
[2024-10-13] MEDS: LIPITOR 20 MG PO (17:12)
[2024-10-13] MEDS: XARELTO 20 MG PO (17:12)
[2024-10-13 21:32] LABS: Glucose - Point of Care 219 mg/dl (70-99)
[2024-10-13] MEDS: LANTUS 0.14 UNITS SC (21:38)
[2024-10-13] MEDS: XALATAN OPHTHALMIC SOLUTION 1 DROP BOTH EYES (21:38)
[2024-10-14] VITALS (7 sets, daily range): BP systolic 82–127; BP diastolic 49–72; BMI 24.9
[2024-10-14] MEDS: SYNTHROID 75 MCG PO (05:46)
[2024-10-14 07:12] LABS: Blood Urea Nitrogen 23 mg/dl (9-20); Calcium 8.6 mg/dl (8.4-10.2); Carbon Dioxide 22 mmol/L (22-30); Chloride 111 mmol/L (98-107); Estimated Creatinine Clearance 47 ml/min; Glucose 166 mg/dl (70-99); Potassium 4.1 mmol/L (3.5-5.1); Sodium 139 mmol/L (135-145); eGFR > 60.00
[2024-10-14 07:26] LABS: % Basophils 0.1 % (0-2); % Eosinophils 2.4 % (0-6); % Immature Granulocytes 0.6 % (0-0.5); % Lymphocytes 20.5 % (20.5-51.1); % Monocytes 10.3 % (1.7-9.3); % Neutrophils 66.1 % (42.2-75.2); Absolute Eosinophils 0.2 10^3/uL (0-0.7); Absolute Immature Granulocytes 0.1 10^3/uL (0-0.05); Absolute Lymphocytes 1.7 10^3/uL (1.2-3.4); Absolute Monocytes 0.9 10^3/uL (0.1-0.6); Absolute Neutrophils 5.6 10^3/uL (1.4-6.5); Hematocrit 30.3 % (39.0-52.0); Hemoglobin 10.1 g/dL (13.0-18.0); Mean Corp Hgb Conc. 33.3 g/dL (33.0-37.0); Mean Corpuscular Hgb 31.1 pg (27.0-31.0); Mean Corpuscular Volume 93.2 fL (80.0-94.0); Mean Platelet Volume 11.4 fL (7.4-10.4); Nucleated Red Blood Cells % 0 % (-); Platelet Count 220 10^3/uL (130-400); Red Blood Cell Count 3.25 10^6/uL (4.70-6.10); Red Cell Dist. Width 15.9 % (11.5-14.5); White Blood Cell Count 8.5 10^3/uL (4.8-10.8)
--- NOTE | 2024-10-14 07:48 | W.PN.CD ---
Today's Communication / Plan
-
sami stim test underway
continue reduced metoprolol and increased midodrine
compression stockings
encourage po intake
ambulate to reassess for sx
discharge planning pending results of sami stim test
Impression / Plan
-
74 y/o Danish-speaking male (some Maori) with hx Takotsubo CM 2014 EF recovered, PAF on Xarelto, SSS (ICD in place with previously low EF per chart) , aortic root dilation 4.8 cm, dyslipidemia, and orthostatic hypotension on midodrine. He is
admitted with weakness, dyspnea, and dizziness. Card is Wilber Collazo MD ([facility])- records in chart.
Dyspnea:
- Suspect pulmonary etiology- pulmonary is following
- cardiac records reviewed and as above
Orthostasis,acute on chronic, on home midodrine 5 TID:
-10/14/24 midodrine increased to 10 mg PO TID and metoprolol dosing decreased, small fluid bolus given
-will allow med changes to reach steady state today
-Sami stim test is underway
-continue current medications
-encourgaed po intake and compression
-Echo 10/12/24: Normal biventricular size and systolic function without regional wall motion abnormality. LVEF 55-60%. No significant valvular disease Dilated aortic root (4.8 cm).
PAF:
-on amiodarone and metoprolol. Metoprolol dosing decreased. Follow telemetry.
-on Xarelto for OAC
New anemia, son says 4 months ago Hgb was normal: GI was consulted and signed off. Further w/u per primary.
Dual chamber Biotronik ICD, placed at [facility] implanted 06/11/[address] Julian
- ICD interrogated yesterday and per Dr. Rhoades/EP: No recent AFib/VT, underlying SB, monitor 170, VT/VF 200 bpm. DDDR 60-120 bpm. Leads battery normal. DAGO 5-7 years, Ap 94%, [employer] 17%.
DM:
-on insulin
-management per primary
Lung disease:
-former smoker
-pulm following
Chronic low dose amiodarone: needs monitoring per protocol as OP, follows with EP Dr. Isaac
Hx of VT per yesterday's note, though I did not see that in cardiology OP note
Subjective:
He feels ok but hasn't been out of bed yet. He is primarily Danish-speaking, but able to provide limited history.
TTE 10/12/24:
CONCLUSIONS
Normal biventricular size and systolic function without regional wall motion
abnormality. LVEF 55-60%.
No significant valvular disease
Dilated aortic root (4.8 cm).
No change compared to prior echocardiogram in November 2023.
Physical Exam
Vital Signs/Labs
Vital Signs
Temp Pulse Resp BP Pulse Ox
98.0 F 69 18 118/56 96
10/14/24 03:40 10/14/24 03:40 10/14/24 03:40 10/14/24 03:40 10/14/24 03:40
10/13/24 10/14/24 10/15/24
06:59 06:59 06:59
Actual Weight 154 lb 8 oz 154 lb 6 oz
10/14/24 06:32
10/14/24 06:32
TSH 2.14 uIU/ml (0.47-4.68) 10/12/24 06:45
10/11/24
12:58
[id number] Pept 1020
LAB Results
10/11/24
12:58
Troponin I < 0.012
Physical Exam
Constitutional: No acute distress and Comfortable
Cardiovascular: Rhythm & rate is regular, Pedal edema is absent, JVD pressure is normal, Systolic murmur absent and Diastolic murmur absent
Respiratory: Respiratory effort normal, Lungs clear to auscul., Wheeze Absent, Crackles Absent and Rhonchi Absent
Neuro/Psych: AO x 3
Data Reviewed
-
Date of Service: October 14, 2024
EKG: Other (tele intermittent apacing)
[2024-10-14] MEDS: CORTROSYN 0.25 MG IV (08:04)
[2024-10-14 08:16] LABS: Glucose - Point of Care 158 mg/dl (70-99)
[2024-10-14] MEDS: PROTONIX 40 MG PO (08:40)
[2024-10-14] MEDS: NOVOLOG FLEXPEN-LOW RESISTANCE 1 UNITS SC (08:40)
[2024-10-14] MEDS: SODIUM CHLORIDE 1 GRAM PO ×2 (08:40→20:23)
[2024-10-14] MEDS: TRUSOPT 2% OPHTHALMIC SOLUTION 1 DROP BOTH EYES ×2 (08:41→20:23)
[2024-10-14] MEDS: ALPHAGAN 0.2% EYE DROPS 1 DROP BOTH EYES ×2 (08:41→20:23)
[2024-10-14] MEDS: PACERONE 200 MG PO (08:44)
[2024-10-14] MEDS: ProAmatine 10 MG PO ×3 (08:44→16:22)
[2024-10-14] MEDS: TOPROL XL 50 MG PO (08:45)
[2024-10-14 10:50] LABS: ACTH Stim Cortisol 0 Min 11.6 ug/dl
[2024-10-14 10:58] LABS: ACTH Stim Cortisol 30 Min 23.7 ug/dl
[2024-10-14 11:06] LABS: ACTH Stim Cortisol 60 Min 27.4 ug/dl
[2024-10-14 11:28] LABS: Glucose - Point of Care 289 mg/dl (70-99)
--- NOTE | 2024-10-14 11:47 | CM ---
Chart reviewed and correctional case records supervisor will follow with patient progress for discharge planning needs. Patient lives in [place] and has home oxygen through [facility] as needed.
Plan; Home with spouse and family support when stable.
[2024-10-14] MEDS: NOVOLOG FLEXPEN-LOW RESISTANCE 3 UNITS SC (12:09)
--- NOTE | 2024-10-14 14:41 | W.PN.HOSP.TC ---
Today's Communication/Plan
-
Florinef
Midodrine
Rico catheter for retention
UA and reflex to culture
Assessment / Plan
Assessment / Plan
Impression:
Presentation with fatigue, dizziness and intermittent hypoxia
Orthostatic hypotension
JIMMIE improved with IV fluid bolus
Chronic anemia with significant hemoglobin drop from 15.8-10
Recent hospitalization at outside hospital as per son with pulmonary congestion possible pneumonia. Completed course of antibiotics and corticosteroids
Other conditions:
Essential hypertension.
CAD.
Atrial fibrillation
Anticoagulation with Xarelto
Pacemaker in place.
Emphysema
Occupational lung exposure.
GERD/PUD
30+ pack year history of smoking quit in 2003
Hypothyroidism
IDDM
Plan:
Fatigue, dizziness, intermittent hypoxia
Noted to be with orthostasis with SBP at 70s.
Clinically no evidence of volume overload or bronchospasm.
Doubt CHF exacerbation or COPD flare.
Transient hypoxia could be related to orthostasis.
CT chest negative for pulmonary embolism or parenchymal infiltrates
Echocardiogram with preserved biventricular function
PPM interrogated with no abnormalities.
Workup for anemia as below
Preadmission midodrine increased to 10 mg 3 times daily
Question if orthostasis related to diabetic neuropathy
Continue Tubigrip
ACTH stimulation test with reasonable cortisol response and not consistent with adrenal insufficiency
Will start Florinef 0.05 mg and monitor
Acute urinary retention
PVR with over 400
Rico catheter to be placed on 10/14
Check UA and reflex to culture
Chronic atrial fibrillation
PPM interrogated.
Continue amiodarone
Metoprolol dose reduced given orthostasis
Continue anticoagulation with Xarelto
CAD.
Chest pain-free on presentation
Echo pending.
Continue beta-evelin and statin
Normocytic anemia.
Patient denies any symptoms suggesting of acute/subacute blood loss.
Had been anticoagulated with Xarelto.
Prior history of PUD.
Remote colonoscopy
Check iron, B12 and folate levels.
Heme check stool negative
Sufficient iron and B12 stores
Urinalysis with no hematuria
Initiated on PPI prophylactically
GI input appreciated with recommendation of outpatient workup
IDDM.
Home regimen including Lantus, Ozempic
Hemoglobin levels 7.1
Continue Lantus
Continue basal bolus protocol adjusting the dose
Hypothyroidism on replacement
TSH within normal limits
Anticipated Discharge: 24 - 48 hours
Subjective/Interval History
-
Date of Service: October 14, 2024
Objective Data
-
Labs:
Laboratory Results
10/14/24
06:32
WBC 8.5
Hgb 10.1 L
Hct 30.3 L
Plt Count 220
Sodium 139
Potassium 4.1
Chloride 111 H
Carbon Dioxide 22
BUN 23 H
Creatinine 1.2
Glucose 166 H
Calcium 8.6
Vital Signs:
Vital Signs
Temp Pulse Resp BP Pulse Ox
98.0 F 67 16 113/60 92
10/14/24 11:10 10/14/24 12:10 10/14/24 11:10 10/14/24 12:10 10/14/24 11:10
I&O
10/13/24 10/14/24 10/15/24
06:59 06:59 06:59
Intake Total 480 / 480 980 / 980
Output Total 675 / 675 725 / 725
Balance -195 / -195 255 / 255
Physical Exam
-
General: Well Developed and No Apparent Distress
HEENT: Normocephalic, Atraumatic and Moist Mucous Membranes
Respiratory: Clear to Auscultation
Cardiac: Regular Rhythm and S1/S2; Negative Murmur, Rub or Gallop
GI: Soft, Nontender, Nondistended and Normal Bowel Sounds; Negative Organomegaly
Rectal: Deferred by Provider
Musculoskeletal: No Clubbing, No Cyanosis and No Edema
Skin: Negative Rash
Neuro: Nonfocal/Grossly Intact
--- NOTE | 2024-10-14 15:10 | PTCARENOTE ---
Assumed care of patient at 3pm. No change in assessment.
[2024-10-14 15:32] LABS: Urine Albumin 1+ (Neg - Trace); Urine Bilirubin Negative (Negative); Urine Character Clear (Clear); Urine Color Yellow; Urine Glucose 4+ (Negative); Urine Ketone Negative (Negative); Urine Leukocyte Negative (Negative); Urine Nitrite Negative (Negative); Urine Occult Blood 2+ (Negative); Urine Specific Gravity 1.015 (<1.030); Urine Urobilinogen Negative (Neg - 1+)
[2024-10-14 15:43] LABS: Urine Bacteria Few (Negative); Urine White Cell 0-2 /HPF (0-5)
[2024-10-14 16:14] LABS: Glucose - Point of Care 343 mg/dl (70-99)
[2024-10-14] MEDS: NOVOLOG FLEXPEN-LOW RESISTANCE 4 UNITS SC (16:17)
[2024-10-14] MEDS: FLORINEF 0.05 MG PO (16:23)
[2024-10-14] MEDS: LIPITOR 20 MG PO (16:23)
[2024-10-14] MEDS: XARELTO 20 MG PO (16:23)
[2024-10-14 21:16] LABS: Glucose - Point of Care 204 mg/dl (70-99)
[2024-10-14] MEDS: LANTUS 0.14 UNITS SC (22:20)
[2024-10-14] MEDS: XALATAN OPHTHALMIC SOLUTION 1 DROP BOTH EYES (22:21)
[2024-10-14] MEDS: NON-FORMULARY ITEM 1 DROP BOTH EYES (22:21)
[2024-10-14] MEDS: FLUSH (NSS) 1 FLUSH IV (22:21)
[2024-10-15] VITALS (7 sets, daily range): BP systolic 94–127; BP diastolic 54–67; PULSE 86; O2SAT 96; BMI 24.3
[2024-10-15] MEDS: SYNTHROID 75 MCG PO (05:21)
[2024-10-15 08:11] LABS: Glucose - Point of Care 108 mg/dl (70-99)
[2024-10-15] MEDS: NOVOLOG FLEXPEN-LOW RESISTANCE SC (08:14)
[2024-10-15] MEDS: ALPHAGAN 0.2% EYE DROPS 1 DROP BOTH EYES ×2 (09:20→21:32)
[2024-10-15] MEDS: SODIUM CHLORIDE 1 GRAM PO ×2 (09:20→21:31)
[2024-10-15] MEDS: PROTONIX 40 MG PO (09:20)
[2024-10-15] MEDS: TOPROL XL 50 MG PO (09:21)
[2024-10-15] MEDS: PACERONE 200 MG PO (09:21)
[2024-10-15] MEDS: ProAmatine 10 MG PO ×3 (09:21→17:29)
[2024-10-15] MEDS: FLORINEF 0.05 MG PO (09:24)
[2024-10-15] MEDS: TRUSOPT 2% OPHTHALMIC SOLUTION 1 DROP BOTH EYES ×2 (09:24→21:32)
--- NOTE | 2024-10-15 09:42 | W.PN.CD ---
Today's Communication / Plan
-
stop bb
continue current midodrine and florinef, will take time to see full affect
follow up with typical cards
will sign off
Impression / Plan
-
74 y/o North Korean-speaking male (some German) with hx Takotsubo CM 2014 EF recovered, PAF on Xarelto, SSS (ICD in place with previously low EF per chart) , aortic root dilation 4.8 cm, dyslipidemia, and orthostatic hypotension on midodrine. He is
admitted with weakness, dyspnea, and dizziness. Card is Wilber Collazo MD ([facility])- records in chart.
Dyspnea:
- Suspect pulmonary etiology- pulmonary is following
- cardiac records reviewed and as above
Orthostasis,acute on chronic, on home midodrine 5 TID:
-10/14/24 midodrine increased to 10 mg PO TID and metoprolol dosing decreased, small fluid bolus given
-Abram stim test ok per medicine
-florinef added by medicine, will take some time to see full effect
-continue current medications
-encourgaed po intake and compression
-Echo 10/12/24: Normal biventricular size and systolic function without regional wall motion abnormality. LVEF 55-60%. No significant valvular disease Dilated aortic root (4.8 cm).
PAF:
-on amiodarone and metoprolol. Metoprolol dosing decreased ok, but still needed additional agent, will stop bb.
-on Xarelto for OAC
New anemia, son says 4 months ago Hgb was normal: GI was consulted and signed off. Further w/u per primary.
Dual chamber Biotronik ICD, placed at [facility] implanted 06/11/[address] Julian
- ICD interrogated yesterday and per Dr. Rhoades/EP: No recent AFib/VT, underlying SB, monitor 170, VT/VF 200 bpm. DDDR 60-120 bpm. Leads battery normal. DAGO 5-7 years, Ap 94%, [employer] 17%.
DM:
-on insulin
-management per primary
Lung disease:
-former smoker
-pulm following
Chronic low dose amiodarone: needs monitoring per protocol as OP, follows with EP Dr. Isaac
Hx of VT per yesterday's note, though I did not see that in cardiology OP note
Subjective:
[employer] line used, he does not have any complaints.
TTE 10/12/24:
CONCLUSIONS
Normal biventricular size and systolic function without regional wall motion
abnormality. LVEF 55-60%.
No significant valvular disease
Dilated aortic root (4.8 cm).
No change compared to prior echocardiogram in November 2023.
Physical Exam
Vital Signs/Labs
Vital Signs
Temp Pulse Resp BP Pulse Ox
98.2 F 67 18 127/66 95
10/15/24 08:03 10/15/24 09:21 10/15/24 08:03 10/15/24 09:21 10/15/24 08:03
10/14/24 10/15/24 10/16/24
06:59 06:59 06:59
Actual Weight 154 lb 6 oz 150 lb 6 oz
10/14/24 06:32
10/14/24 06:32
TSH 2.14 uIU/ml (0.47-4.68) 10/12/24 06:45
10/11/24
12:58
[id number]-K-[id number] Pept 1020
Physical Exam
Constitutional: No acute distress
Cardiovascular: Rhythm & rate is regular, Pedal edema is absent, JVD pressure is normal, Systolic murmur absent and Diastolic murmur absent
Respiratory: Respiratory effort normal, Lungs clear to auscul., Wheeze Absent, Crackles Absent and Rhonchi Absent
Neuro/Psych: AO x 3
Data Reviewed
-
Date of Service: October 15, 2024
Medical Decision Making: Review of Case with other Provider (Dr Cardenas, will stop bb sign off)
[2024-10-15 11:57] LABS: Glucose - Point of Care 265 mg/dl (70-99)
[2024-10-15] MEDS: NOVOLOG FLEXPEN-LOW RESISTANCE 3 UNITS SC (12:20)
--- NOTE | 2024-10-15 15:14 | W.PN.HOSP.TC ---
Today's Communication/Plan
-
Orthostasis improved, although patient remains symptomatic with fall risk.
Observe off metoprolol
Continue midodrine
Continue Florinef considering increased dose over the next 24 hours.
Continue PT assessment
Maintain Rico
Update B12 and iron level
Assessment / Plan
Assessment / Plan
Impression:
Presentation with fatigue, dizziness and intermittent hypoxia
Orthostatic hypotension
JIMMIE improved with IV fluid bolus
Chronic anemia with significant hemoglobin drop from 15.8-10
Recent hospitalization at outside hospital as per son with pulmonary congestion possible pneumonia. Completed course of antibiotics and corticosteroids
Other conditions:
Essential hypertension.
CAD.
Atrial fibrillation
Anticoagulation with Xarelto
Pacemaker in place.
Emphysema
Occupational lung exposure.
GERD/PUD
30+ pack year history of smoking quit in 2003
Hypothyroidism
IDDM
Plan:
Fatigue, dizziness, intermittent hypoxia
Noted to be with orthostasis with SBP at 70s.
Clinically no evidence of volume overload or bronchospasm.
Doubt CHF exacerbation or COPD flare.
Transient hypoxia could be related to orthostasis.
CT chest negative for pulmonary embolism or parenchymal infiltrates
Echocardiogram with preserved biventricular function
PPM interrogated with no abnormalities.
Workup for anemia as below
Preadmission midodrine increased to 10 mg 3 times daily
Question if orthostasis related to diabetic neuropathy
Continue Tubigrip
ACTH stimulation test with reasonable cortisol response and not consistent with adrenal insufficiency
Initiated on Florinef 0.05 mg on 10/14
Acute urinary retention
PVR with over 400
Rico catheter to be placed on 10/14
Urinalysis not consistent with infection
Given severe orthostasis, unable to initiate Flomax.
Chronic atrial fibrillation
PPM interrogated.
Continue amiodarone
Beta-evelin discontinued secondary to orthostasis
Continue anticoagulation with Xarelto
CAD.
Chest pain-free on presentation
Echo with preserved biventricular function and no significant valvular abnormality
Beta-evelin discontinued secondary to orthostasis
Normocytic anemia.
Patient denies any symptoms suggesting of acute/subacute blood loss.
Had been anticoagulated with Xarelto.
Prior history of PUD.
Remote colonoscopy
Check iron, B12
Heme check stool negative
Sufficient iron and B12 stores
Urinalysis with no hematuria
Initiated on PPI prophylactically
GI input appreciated with recommendation of outpatient workup
IDDM.
Home regimen including Lantus, Ozempic
Hemoglobin A1c 7.1
Continue Lantus
Continue basal bolus protocol adjusting the dose
Hypothyroidism on replacement
TSH within normal limits
Anticipated Discharge: 24 - 48 hours
Subjective/Interval History
-
Date of Service: October 15, 2024
Objective Data
-
Vital Signs:
Vital Signs
Temp Pulse Resp BP Pulse Ox
97.7 F 70 18 125/67 93
10/15/24 11:50 10/15/24 12:21 10/15/24 11:50 10/15/24 12:21 10/15/24 11:50
I&O
10/14/24 10/15/24 10/16/24
06:59 06:59 06:59
Intake Total 980 / 980 600 / 600
Output Total 725 / 725 1575 / 1575 400 / 400
Balance 255 / 255 -975 / -975 -400 / -400
Physical Exam
-
General: Well Developed and No Apparent Distress
HEENT: Normocephalic, Atraumatic and Moist Mucous Membranes
Respiratory: Clear to Auscultation
Cardiac: Regular Rhythm and S1/S2; Negative Murmur, Rub or Gallop
GI: Soft, Nontender, Nondistended and Normal Bowel Sounds; Negative Organomegaly
Rectal: Deferred by Provider
Musculoskeletal: No Clubbing, No Cyanosis and No Edema
Skin: Negative Rash
Neuro: Nonfocal/Grossly Intact
[2024-10-15 15:55] LABS: Iron 53 ug/dl (49-181)
[2024-10-15 16:04] LABS: Percent Saturation 18 % (20-50); Total Iron Binding Capacity 281 ug/dl (261-462)
[2024-10-15 17:27] LABS: Glucose - Point of Care 230 mg/dl (70-99)
[2024-10-15] MEDS: NOVOLOG FLEXPEN-LOW RESISTANCE 2 UNITS SC (17:29)
[2024-10-15] MEDS: XARELTO 20 MG PO (17:29)
[2024-10-15] MEDS: LIPITOR 20 MG PO (17:29)
[2024-10-15 18:06] LABS: Vitamin B12 364 pg/ml (239-931)
[2024-10-15 21:00] LABS: Glucose - Point of Care 212 mg/dl (70-99)
[2024-10-15] MEDS: NON-FORMULARY ITEM 2 DROP BOTH EYES (21:31)
[2024-10-15] MEDS: LANTUS 0.14 UNITS SC (21:31)
[2024-10-15] MEDS: XALATAN OPHTHALMIC SOLUTION 1 DROP BOTH EYES (21:32)
[2024-10-16] MEDS: SYNTHROID 75 MCG PO (05:24)
[2024-10-16 06:00] VITALS: BMI 24.1
[2024-10-16 07:05] VITALS: BP 95/58
[2024-10-16 07:39] LABS: Glucose - Point of Care 109 mg/dl (70-99)
[2024-10-16] MEDS: NOVOLOG FLEXPEN-LOW RESISTANCE SC (08:32)
[2024-10-16] MEDS: ProAmatine 10 MG PO ×3 (08:33→17:01)
[2024-10-16] MEDS: SODIUM CHLORIDE 1 GRAM PO ×2 (08:33→21:33)
[2024-10-16] MEDS: PACERONE 200 MG PO (08:34)
[2024-10-16] MEDS: FLORINEF 0.05 MG PO (08:34)
[2024-10-16] MEDS: ALPHAGAN 0.2% EYE DROPS 1 DROP BOTH EYES ×2 (08:34→21:33)
[2024-10-16] MEDS: PROTONIX 40 MG PO (08:34)
[2024-10-16] MEDS: TRUSOPT 2% OPHTHALMIC SOLUTION 1 DROP BOTH EYES ×2 (08:35→21:33)
--- NOTE | 2024-10-16 09:37 | W.PN.HOSP.TC ---
Today's Communication/Plan
-
restart physostigmine
follow clinically
Assessment / Plan
Assessment / Plan
74yo M with PMHx of CHF, miasthenia gravis,emphysema 2/2 former smoking, CHF, Afib on eliquis, DM came with SOB and generalized weakness, found orthostatic hypotension. Cannot exclude medication induced after previous hospitalization as well as lack
of Pyridostigmine
A/P:
#Generaslized fatigue
#Orthostatic hypotension
most likely deconditioning and medication chage with recent admission to another hospital for CHF and pneumonia
improving
TSH and ACTH stim test WNL
adjust meds
PT/OT
cont Midodrine/Florinef
BB stopped
no Pyridostigmine on admission meds - can be reason for orthostasis - restarted on 10/16/24
#JIMMIE on admission
most likely 2/2 recent change in meds
resolved with IVF
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
Pulm consult
Bronchodilatiors
remains not hypoxcon RA
#DM type 2 with unspecified complications
Accuchecks, Insulin SS, DM diet
#Acute urinary retention
hitchcock placed on 10/14/24
outpatient urodynamic studies
#MARY
GI consult: outpatient w/u
IV Iron
#HFpEF, chronic
Card consult
#Afib, unspecified
#Hypothyroidism
#GERD
#CAD, stable
#SSS s/p PPM
#HLD
#HX Myasthenia Gravis on Pyridostigmine
Cont home meds
Restarted Pyridostigmine bromide 180 mg (was ER at home) -now 60Mg TID while hospitalised
DVT ppx Xarelto
Full code
I have spent at least 58min reviewing chart, test results and providing direct patient care
Anticipated Discharge: > 48 hours
Subjective/Interval History
-
Date of Service: October 16, 2024
Objective Data
-
Vital Signs:
Vital Signs
Temp Pulse Resp BP Pulse Ox
97.7 F 77 16 95/58 94
10/16/24 07:05 10/16/24 08:33 10/16/24 07:05 10/16/24 08:33 10/16/24 09:35
I&O
10/15/24 10/16/24 10/17/24
06:59 06:59 06:59
Intake Total 600 / 600 1200 / 1200
Output Total 1575 / 1575 1950 / 1950
Balance -975 / -975 -750 / -750
Review of Systems
-
History Source: Patient
All other systems: Reviewed and negative
Physical Exam
-
General: No Apparent Distress
HEENT: Normocephalic
Respiratory: Clear to Auscultation
Cardiac: Regular Rhythm
GI: Soft, Nontender and Nondistended
Rectal: Brown
Musculoskeletal: No Clubbing, No Cyanosis and No Edema
Skin: Warm
Psych: Calm
--- NOTE | 2024-10-16 10:09 | W.PN.UPDATE ---
Update Note
Progress Note Update
Fludrocortisone stopped since Physostigmine started
[2024-10-16 12:23] LABS: Glucose - Point of Care 287 mg/dl (70-99)
[2024-10-16] MEDS: NOVOLOG FLEXPEN-LOW RESISTANCE 3 UNITS SC (12:28)
[2024-10-16] MEDS: FERRLECIT 110 MG IV (14:32)
[2024-10-16 15:00] VITALS: BP 101/52
[2024-10-16 16:25] LABS: Glucose - Point of Care 177 mg/dl (70-99)
[2024-10-16] MEDS: NOVOLOG FLEXPEN-LOW RESISTANCE 1 UNITS SC (16:41)
[2024-10-16] MEDS: MESTINON 60 MG PO ×2 (16:41→21:33)
[2024-10-16] MEDS: XARELTO 20 MG PO (17:01)
[2024-10-16] MEDS: LIPITOR 20 MG PO (17:01)
[2024-10-16 21:29] LABS: Glucose - Point of Care 156 mg/dl (70-99)
[2024-10-16] MEDS: XALATAN OPHTHALMIC SOLUTION 1 DROP BOTH EYES (21:33)
[2024-10-16] MEDS: NON-FORMULARY ITEM 2 DROP BOTH EYES (21:33)
[2024-10-16] MEDS: LANTUS 0.14 UNITS SC (21:39)
[2024-10-16 23:21] VITALS: BP 103/66
[2024-10-17] MEDS: SYNTHROID 75 MCG PO (05:20)
[2024-10-17 05:29] VITALS: BMI 24.1
--- NOTE | 2024-10-17 06:04 | PTCARENOTE ---
Rico catheter removed at 0600 per order. Bladder scan/straight cath protocol initiated. Will continue to monitor.
[2024-10-17 08:47] VITALS: BP 90/57
[2024-10-17 09:06] LABS: Glucose - Point of Care 135 mg/dl (70-99)
[2024-10-17] MEDS: SODIUM CHLORIDE 1 GRAM PO ×2 (09:17→20:49)
[2024-10-17] MEDS: NOVOLOG FLEXPEN-LOW RESISTANCE SC (09:17)
[2024-10-17] MEDS: PROTONIX 40 MG PO (09:17)
[2024-10-17] MEDS: ALPHAGAN 0.2% EYE DROPS 1 DROP BOTH EYES ×2 (09:17→20:49)
[2024-10-17] MEDS: TRUSOPT 2% OPHTHALMIC SOLUTION 1 DROP BOTH EYES ×2 (09:17→20:49)
[2024-10-17] MEDS: PACERONE 200 MG PO (09:18)
[2024-10-17] MEDS: MESTINON 60 MG PO ×3 (09:18→21:56)
[2024-10-17] MEDS: ProAmatine 10 MG PO ×3 (09:18→17:52)
[2024-10-17 10:12] VITALS: BP 77/45; BP 86/51; BP 88/44; PULSE 56; PULSE 78; PULSE 82
[2024-10-17 10:27] VITALS: BP 57/38; BP 82/48
[2024-10-17 11:44] LABS: Glucose - Point of Care 306 mg/dl (70-99)
--- NOTE | 2024-10-17 11:52 | W.PN.HOSP.TC ---
Addendum entered and electronically signed by Pierce Núñez MD 10/17/24 12:06:
abdominal binder
Original Note:
Today's Communication/Plan
-
Still symptomatic on ambulation
Florinef
cont physostigmine
repeat assessment in AM
Assessment / Plan
Assessment / Plan
74yo M with PMHx of CHF, miasthenia gravis,emphysema 2/2 former smoking, CHF, Afib on eliquis, DM came with SOB and generalized weakness, found orthostatic hypotension. Cannot exclude medication induced after previous hospitalization as well as lack
of Pyridostigmine.
A/P:
#Generalized fatigue
#Orthostatic hypotension
most likely deconditioning and medication chage with recent admission to another hospital for CHF and pneumonia
improving
TSH and ACTH stim test WNL
adjust meds
PT/OT
cont Midodrine/Florinef
BB stopped
no Pyridostigmine on admission meds - can be reason for orthostasis - restarted on 10/16/24. Patient without signs of MG crisis at this time, only symptomatic with lightheadedness on upside position
#JIMMIE on admission
most likely 2/2 recent change in meds
resolved with IVF
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
Pulm consult
Bronchodilations
remains not hypoxic on RA
#DM type 2 with unspecified complications
Accuchecks, Insulin SS, DM diet
#Acute urinary retention
hitchcock placed on 10/14/24
outpatient urodynamic studies
#MARY
GI consult: outpatient w/u
IV Iron
#HFpEF, chronic
Card consult
#Afib, unspecified
#Hypothyroidism
#GERD
#CAD, stable
#SSS s/p PPM
#HLD
#HX Myasthenia Gravis on Pyridostigmine
Cont home meds
Restarted Pyridostigmine bromide 180 mg (was ER at home) -now 60Mg TID while hospitalised
DVT ppx Xarelto
Full code
I have spent at least 58min reviewing chart, test results and providing direct patient care
Anticipated Discharge: 24 - 48 hours
Subjective/Interval History
-
Date of Service: October 17, 2024
Objective Data
-
Vital Signs:
Vital Signs
Temp Pulse Resp BP Pulse Ox
97.8 F 74 18 90/57 93
10/17/24 08:47 10/17/24 08:47 10/17/24 08:47 10/17/24 08:47 10/17/24 08:47
I&O
10/16/24 10/17/24 10/18/24
06:59 06:59 06:59
Intake Total 1200 / 1200 1280 / 1280
Output Total 1950 / 1950 2150 / 2150
Balance -750 / -750 -870 / -870
Review of Systems
-
History Source: Patient
All other systems: Reviewed and negative
Physical Exam
-
General: No Apparent Distress
HEENT: Normocephalic
Cardiac: Regular Rhythm
GI: Soft, Nontender and Nondistended
Neuro: Awake, Alert, Oriented and AO x 3
Psych: Calm
[2024-10-17] MEDS: FLORINEF 0.2 MG PO (12:24)
[2024-10-17] MEDS: NOVOLOG FLEXPEN-LOW RESISTANCE 4 UNITS SC ×2 (12:28→17:51)
[2024-10-17] MEDS: FERRLECIT 110 MG IV (13:49)
[2024-10-17 15:34] VITALS: BP 98/53
[2024-10-17 17:23] LABS: Glucose - Point of Care 328 mg/dl (70-99)
[2024-10-17] MEDS: LIPITOR 20 MG PO (17:52)
[2024-10-17] MEDS: XARELTO 20 MG PO (17:52)
[2024-10-17 21:08] LABS: Glucose - Point of Care 200 mg/dl (70-99)
[2024-10-17] MEDS: NON-FORMULARY ITEM 1 DROP BOTH EYES (21:55)
[2024-10-17] MEDS: XALATAN OPHTHALMIC SOLUTION 1 DROP BOTH EYES (21:55)
[2024-10-17] MEDS: LANTUS 0.14 UNITS SC (21:56)
[2024-10-17 23:03] VITALS: BP 102/53
[2024-10-18 00:30] VITALS: BP 97/50
[2024-10-18 00:38] LABS: Glucose - Point of Care 129 mg/dl (70-99)
[2024-10-18 00:41] VITALS: BP 123/80
[2024-10-18] MEDS: SYNTHROID 75 MCG PO (06:01)
[2024-10-18] MEDS: NOVOLOG FLEXPEN-MODERATE RESISTANCE SC (07:49)
[2024-10-18 08:09] VITALS: BP 128/59
[2024-10-18 08:28] LABS: Glucose - Point of Care 129 mg/dl (70-99)
[2024-10-18 09:45] VITALS: BMI 23.9
[2024-10-18] MEDS: MESTINON 60 MG PO ×3 (09:46→21:54)
[2024-10-18] MEDS: ProAmatine 10 MG PO ×3 (09:46→17:20)
[2024-10-18] MEDS: PROTONIX 40 MG PO (09:46)
[2024-10-18] MEDS: SODIUM CHLORIDE 1 GRAM PO ×2 (09:46→19:41)
[2024-10-18] MEDS: TRUSOPT 2% OPHTHALMIC SOLUTION 1 DROP BOTH EYES ×2 (09:46→19:42)
[2024-10-18] MEDS: FLORINEF 0.2 MG PO (09:46)
[2024-10-18] MEDS: ALPHAGAN 0.2% EYE DROPS 1 DROP BOTH EYES ×2 (09:46→19:42)
[2024-10-18] MEDS: PACERONE 200 MG PO (09:47)
[2024-10-18 11:52] LABS: Glucose - Point of Care 271 mg/dl (70-99)
[2024-10-18] MEDS: NOVOLOG FLEXPEN-MODERATE RESISTANCE 5 UNITS SC ×2 (12:47→17:19)
[2024-10-18] MEDS: FERRLECIT 110 MG IV (13:05)
--- NOTE | 2024-10-18 14:33 | W.PN.HOSP.TC ---
Today's Communication/Plan
-
Continue Florinef, dose increased.
Continue midodrine, dose increased.
Pyridostigmine resumed on 10/16 for myasthenia gravis.
Off beta-blockade
Physical therapy assessment with possible placement to [facility].
Assessment / Plan
Assessment / Plan
74yo M with PMHx of CHF, miasthenia gravis,emphysema 2/2 former smoking, CHF, Afib on eliquis, DM came with SOB and generalized weakness, found orthostatic hypotension. Cannot exclude medication induced after previous hospitalization as well as lack
of Pyridostigmine.
A/P:
#Generalized fatigue
#Orthostatic hypotension
most likely deconditioning and medication chage with recent admission to another hospital for CHF and pneumonia
improving
TSH and ACTH stim test WNL
adjust meds
PT/OT
cont Midodrine/Florinef
BB stopped
Myasthenia gravis. No Pyridostigmine on admission meds - can be reason for orthostasis - restarted on 10/16/24. Patient without signs of MG crisis at this time, only symptomatic with lightheadedness on upside position
#JIMMIE on admission
most likely 2/2 recent change in meds
resolved with IVF
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
Pulm consult
Bronchodilations
remains not hypoxic on RA
#DM type 2 with unspecified complications
Accuchecks, Insulin SS, DM diet
#Acute urinary retention
hitchcock placed on 10/14/24
outpatient urodynamic studies
#MARY
GI consult: outpatient w/u
IV Iron
#HFpEF, chronic
Card consult
#Afib, unspecified
#Hypothyroidism
#GERD
#CAD, stable
#SSS s/p PPM
#HLD
#HX Myasthenia Gravis on Pyridostigmine
Cont home meds
Restarted Pyridostigmine bromide 180 mg (was ER at home) -now 60Mg TID while hospitalised
DVT ppx Xarelto
Full code
I have spent at least 58min reviewing chart, test results and providing direct patient care
Anticipated Discharge: 24 - 48 hours
Subjective/Interval History
-
Date of Service: October 18, 2024
Objective Data
-
Vital Signs:
Vital Signs
Temp Pulse Resp BP Pulse Ox
98.1 F 67 18 128/59 98
10/18/24 08:09 10/18/24 09:46 10/18/24 08:09 10/18/24 09:46 10/18/24 09:45
I&O
10/17/24 10/18/24 10/19/24
06:59 06:59 06:59
Intake Total 1280 / 1280 480 / 480 240 / 240
Output Total 2150 / 2150 390 / 390 350 / 350
Balance -870 / -870 90 / 90 -110 / -110
Physical Exam
-
General: No Apparent Distress
HEENT: Normocephalic
Cardiac: Regular Rhythm
GI: Soft, Nontender and Nondistended
Neuro: Awake, Alert, Oriented and AO x 3
Psych: Calm
--- NOTE | 2024-10-18 14:36 | PN.CDI ---
CDI
- -
CDI:
Physician Documentation Request
Admit Date: 10/11/24 16:34
Dear Doctor Theresa,
Please review the following and provide your response in the progress notes.
Current documentation includes a diagnosis of hypotension.
Clinical Indicators:
PN, 10/18
#Continue Florinef, dose increased.
#Continue midodrine, dose increased.
#Pyridostigmine resumed on 10/16 for myasthenia gravis.
#...PMHx of CHF, miasthenia gravis,emphysema 2/2 former smoking, CHF, Afib on eliquis,
#...DM came with SOB and generalized weakness,
#...found orthostatic hypotension.
#...Cannot exclude medication induced after previous hospitalization
#...as well as lack of Pyridostigmine.
#Generalized fatigue
#Orthostatic hypotension
#...most likely deconditioning and medication chage
#...adjust meds
#...cont Midodrine/Florinef
#Myasthenia gravis. No Pyridostigmine on admission meds
#...- can be reason for orthostasis - restarted on 10/16/24.
#...Patient without signs of MG crisis at this time, ...
Based on the above and your clinical assessment, please clarify which of the following is the most likely etiology of the above symptoms and treatment rendered:
Multifactorial due to Neurogenic Orthostatic Hypotension (please provide underlying etiology), ...
Hypotension - indicate type/etiology, such as idiopathic, neurogenic or orthostatic, Diabetes, myasthenia gravis, chronic, drug induced (indicate drug), etc.
Hypotension - unknown type/etiology
Other(please specify)
Use of terms such as suspected, likely, concern for, or probable (associated with a specific diagnosis that is being evaluated, monitored, or treated as if it exists) are acceptable and can be coded in the inpatient setting, when documented at the
time of discharge.
Thank you,
Maci Zambrano RN BSN CCDS
CDI Specialist
Please contact via tiger text
Please use your independent medical judgment in providing your response.
[2024-10-18 15:45] VITALS: BP 113/66
[2024-10-18 16:29] VITALS: PULSE 76; PULSE 82
[2024-10-18 16:59] LABS: Glucose - Point of Care 270 mg/dl (70-99)
[2024-10-18] MEDS: XARELTO 20 MG PO (17:20)
[2024-10-18] MEDS: LIPITOR 20 MG PO (17:20)
--- NOTE | 2024-10-18 18:05 | CM ---
Recommendation from PT is rehab due to patient's drop in bp upon exertion. Will discuss options with patient and family for SNF. Prior auth will need to be obtained.
Plan: Case management will continue to follow and assist with discharge planning. SNF when stable
[2024-10-18 21:19] LABS: Glucose - Point of Care 197 mg/dl (70-99)
[2024-10-18] MEDS: XALATAN OPHTHALMIC SOLUTION 1 DROP BOTH EYES (21:54)
[2024-10-18] MEDS: NON-FORMULARY ITEM 1 DROP BOTH EYES (21:54)
[2024-10-18] MEDS: LANTUS 0.14 UNITS SC (21:55)
[2024-10-18 23:31] VITALS: BP 128/57
[2024-10-19 05:27] VITALS: BMI 24.3
[2024-10-19] MEDS: SYNTHROID 75 MCG PO (05:39)
[2024-10-19 07:15] VITALS: BP 117/62
[2024-10-19 08:13] LABS: Glucose - Point of Care 175 mg/dl (70-99)
[2024-10-19] MEDS: NOVOLOG FLEXPEN-MODERATE RESISTANCE 1 UNITS SC (09:38)
[2024-10-19] MEDS: TRUSOPT 2% OPHTHALMIC SOLUTION 1 DROP BOTH EYES ×2 (09:38→20:52)
[2024-10-19] MEDS: ALPHAGAN 0.2% EYE DROPS 1 DROP BOTH EYES ×2 (09:38→20:51)
[2024-10-19] MEDS: MESTINON 60 MG PO ×3 (09:39→21:01)
[2024-10-19] MEDS: ProAmatine 10 MG PO ×3 (09:39→17:26)
[2024-10-19] MEDS: FLORINEF 0.2 MG PO (09:40)
[2024-10-19] MEDS: PACERONE 200 MG PO (09:40)
[2024-10-19] MEDS: PROTONIX 40 MG PO (09:40)
[2024-10-19] MEDS: SODIUM CHLORIDE 1 GRAM PO ×2 (09:40→20:50)
[2024-10-19 11:57] LABS: Glucose - Point of Care 210 mg/dl (70-99)
[2024-10-19] MEDS: NOVOLOG FLEXPEN-MODERATE RESISTANCE 3 UNITS SC (12:38)
[2024-10-19] MEDS: FERRLECIT 110 MG IV (13:03)
[2024-10-19 15:20] VITALS: BP 110/65
--- NOTE | 2024-10-19 15:56 | W.PN.HOSP.TC ---
Today's Communication/Plan
-
Improved, but persistent symptomatic orthostasis with fall risk
PT recommends rehab
Continue current management including Florinef, midodrine.
Patient to discuss with family rehab options versus discharge home.
Assessment / Plan
Assessment / Plan
74yo M with PMHx of CHF, miasthenia gravis,emphysema 2/2 former smoking, CHF, Afib on eliquis, DM came with SOB and generalized weakness, found orthostatic hypotension. Cannot exclude medication induced after previous hospitalization as well as lack
of Pyridostigmine.
A/P:
#Generalized fatigue
#Orthostatic hypotension
most likely deconditioning and medication chage with recent admission to another hospital for CHF and pneumonia
improving
TSH and ACTH stim test WNL
adjust meds
PT/OT
cont Midodrine/Florinef
BB stopped
Myasthenia gravis. No Pyridostigmine on admission meds - can be reason for orthostasis - restarted on 10/16/24. Patient without signs of MG crisis at this time, only symptomatic with lightheadedness on upside position
#JIMMIE on admission
most likely 2/2 recent change in meds
resolved with IVF
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
Pulm consult
Bronchodilations
remains not hypoxic on RA
#DM type 2 with unspecified complications
Accuchecks, Insulin SS, DM diet
#Acute urinary retention
hitchcock placed on 10/14/24
Successful trial of voiding on 10/17. Monitor for recurrent retention
#MARY
GI consult: outpatient w/u
IV Iron
#HFpEF, chronic
Card consult
#Afib, unspecified
#Hypothyroidism
#GERD
#CAD, stable
#SSS s/p PPM
#HLD
#HX Myasthenia Gravis on Pyridostigmine
Cont home meds
Restarted Pyridostigmine bromide 180 mg (was ER at home) -now 60Mg TID while hospitalised
DVT ppx Xarelto
Full code
I have spent at least 58min reviewing chart, test results and providing direct patient care
Anticipated Discharge: 24 - 48 hours
Subjective/Interval History
-
Date of Service: October 19, 2024
Objective Data
-
Vital Signs:
Vital Signs
Temp Pulse Resp BP Pulse Ox
97.6 F 74 16 110/65 94
10/19/24 15:24 10/19/24 15:20 10/19/24 15:20 10/19/24 15:20 10/19/24 15:20
I&O
10/18/24 10/19/24 10/20/24
06:59 06:59 06:59
Intake Total 480 / 480 1200 / 1200
Output Total 390 / 390 1525 / 1525
Balance 90 / 90 -325 / -325
Physical Exam
-
General: No Apparent Distress
HEENT: Normocephalic
Cardiac: Regular Rhythm
GI: Soft, Nontender and Nondistended
Neuro: Awake, Alert, Oriented and AO x 3
Psych: Calm
[2024-10-19 16:34] LABS: Glucose - Point of Care 481 mg/dl (70-99)
--- NOTE | 2024-10-19 16:37 | PTCARENOTE ---
Pt has a 'HI' reading on the accucheck meter. Advised MD and ordered a stat glucose draw.
[2024-10-19 17:14] LABS: Glucose 438 mg/dl (70-99)
[2024-10-19] MEDS: XARELTO 20 MG PO (17:26)
[2024-10-19] MEDS: LIPITOR 20 MG PO (17:26)
[2024-10-19] MEDS: NOVOLOG FLEXPEN-MODERATE RESISTANCE 11 UNITS SC (17:27)
--- NOTE | 2024-10-19 17:35 | PTCARENOTE ---
STAT glucose was 438. Advised , gave the pt insulin based on his SS. will recheck in 2 hours per protocol.
--- NOTE | 2024-10-19 17:54 | CM ---
Spoke with attending who stated that if patient is not going to SNF, he can be medically cleared tonight. Recommendation from PT/OT is for SNF. Placed a call to patient's son who stated that he would like for patient to go to SNF and will be talking
to him about it this evening. Will f/u with patient and his son in the morning. Attending updated.
Plan: Case management will continue to follow and assist with discharge planning. SNF vrs Home with VN.
--- NOTE | 2024-10-19 17:59 | CM ---
Both [facility] and [facility] offered bed for patient. Still awaiting return call from admissions at [facility], patient's spouse's first choice. Per conversation with attending, patient is medically stable and therefore will explain
that if [facility] is not available, patient will need to transfer to facility with an available bed.
Will get NPI numbers to obtain hopeful auth for transfer.
Plan: Case management will continue to follow and assist with discharge planning. SNF. Patient medically stable.
[2024-10-19 19:25] LABS: Glucose - Point of Care 367 mg/dl (70-99)
[2024-10-19] MEDS: NON-FORMULARY ITEM 1 DROP BOTH EYES (20:51)
[2024-10-19] MEDS: XALATAN OPHTHALMIC SOLUTION 1 DROP BOTH EYES (20:52)
[2024-10-19] MEDS: NOVOLOG FLEXPEN 3 UNITS SC (20:53)
[2024-10-19 22:38] LABS: Glucose - Point of Care 128 mg/dl (70-99)
[2024-10-19] MEDS: LANTUS 0.14 UNITS SC (22:41)
[2024-10-19 23:15] VITALS: BP 101/57
--- NOTE | 2024-10-20 04:22 | DOWNTIME ---
Addendum entered by Dee Dee Buchanan RN 10/20/24 14:22:
Correction: Downtime was 10/20/2024 from 0100 to 10/20/2024 at 0415
Original Note:
There was a [employer] Downtime on 10/19/2024 from 0100 to 10/20/2024 at 0415. Downtime documentation of patient's care, including medication administrations, has been reconciled in the electronic record per guidelines. Refer to the
patient's paper chart under the miscellaneous tab to see printed paper medication records and downtime forms.
[2024-10-20] MEDS: SYNTHROID 75 MCG PO (05:59)
[2024-10-20 06:00] VITALS: BMI 24.4
[2024-10-20 07:19] LABS: Glucose - Point of Care 162 mg/dl (70-99)
[2024-10-20 07:35] VITALS: BP 109/54
[2024-10-20 08:13] LABS: Glucose - Point of Care 170 mg/dl (70-99)
[2024-10-20 08:16] LABS: Glucose - Point of Care 154 mg/dl (70-99)
[2024-10-20] MEDS: SODIUM CHLORIDE 1 GRAM PO ×2 (09:02→21:33)
[2024-10-20] MEDS: NOVOLOG FLEXPEN-MODERATE RESISTANCE 1 UNITS SC (09:02)
[2024-10-20] MEDS: ALPHAGAN 0.2% EYE DROPS 1 DROP BOTH EYES ×2 (09:02→21:35)
[2024-10-20] MEDS: TRUSOPT 2% OPHTHALMIC SOLUTION 1 DROP BOTH EYES ×2 (09:02→21:35)
[2024-10-20] MEDS: ProAmatine 10 MG PO ×3 (09:03→17:27)
[2024-10-20] MEDS: MESTINON 60 MG PO ×3 (09:03→21:33)
[2024-10-20] MEDS: PACERONE 200 MG PO (09:03)
[2024-10-20] MEDS: FLORINEF 0.2 MG PO (09:03)
[2024-10-20] MEDS: PROTONIX 40 MG PO (09:03)
[2024-10-20 11:56] LABS: Glucose - Point of Care 273 mg/dl (70-99)
[2024-10-20] MEDS: NOVOLOG FLEXPEN-MODERATE RESISTANCE 5 UNITS SC (12:36)
[2024-10-20] MEDS: FERRLECIT 110 MG IV (13:31)
[2024-10-20 14:55] VITALS: BP 81/56; BP 91/50; BP 95/58; PULSE 83; PULSE 92
[2024-10-20 15:08] VITALS: BP 104/54
--- NOTE | 2024-10-20 16:56 | CM ---
Spoke with patient's son today who stated that he would like for patient to go to [facility]. At time of call he had no further selections. He was advised that it would be important to send more than one referral, in the event that, there is no
availability at [facility]. Patient's son stated that he will return call with more SNF selections. Spoke with patient's attending to update.
Placed a call to [facility] and spoke with Monty who stated that she would like for referral to be sent and she will review.
Will fax referral and f/u with patient's son.
Spoke with PT who stated that patient was slightly weaker today than last session and her recommendation is still for patient to transfer to a SNF. Per attending patient medically stable.
Plan: Case management will continue to follow and assist with discharge planning. SNF upon determining bed availability and auth from insurance.
[2024-10-20 17:07] LABS: Glucose - Point of Care 240 mg/dl (70-99)
[2024-10-20] MEDS: NOVOLOG FLEXPEN-MODERATE RESISTANCE 3 UNITS SC (17:26)
[2024-10-20] MEDS: LIPITOR 20 MG PO (17:26)
[2024-10-20] MEDS: XARELTO 20 MG PO (17:26)
[2024-10-20] MEDS: THERAGRAN 1 TABLET PO (18:02)
--- NOTE | 2024-10-20 18:18 | W.PN.HOSP.TC ---
Today's Communication/Plan
-
Physical therapy and placement
Assessment / Plan
Assessment / Plan
74yo M with PMHx of CHF, miasthenia gravis,emphysema 2/2 former smoking, CHF, Afib on eliquis, DM came with SOB and generalized weakness, found orthostatic hypotension. Cannot exclude medication induced after previous hospitalization as well as lack
of Pyridostigmine.
A/P:
#Generalized fatigue
#Orthostatic hypotension
most likely deconditioning and medication chage with recent admission to another hospital for CHF and pneumonia
improving
TSH and ACTH stim test WNL
adjust meds
PT/OT
cont Midodrine/Florinef
BB stopped
Myasthenia gravis. No Pyridostigmine on admission meds - can be reason for orthostasis - restarted on 10/16/24. Patient without signs of MG crisis at this time, only symptomatic with lightheadedness on upside position
#JIMMIE on admission
most likely 2/2 recent change in meds
resolved with IVF
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
Pulm consult
Bronchodilations
remains not hypoxic on RA
#DM type 2 with unspecified complications
Accuchecks, Insulin SS, DM diet
#Acute urinary retention
hitchcock placed on 10/14/24
Successful trial of voiding on 10/17. Monitor for recurrent retention
#MARY
GI consult: outpatient w/u
IV Iron
#HFpEF, chronic
Card consult
#Afib, unspecified
#Hypothyroidism
#GERD
#CAD, stable
#SSS s/p PPM
#HLD
#HX Myasthenia Gravis on Pyridostigmine
Cont home meds
Restarted Pyridostigmine bromide 180 mg (was ER at home) -now 60Mg TID while hospitalised
DVT ppx Xarelto
Full code
I have spent at least 58min reviewing chart, test results and providing direct patient care
Anticipated Discharge: 24 - 48 hours
Subjective/Interval History
-
Date of Service: October 20, 2024
Objective Data
-
Vital Signs:
Vital Signs
Temp Pulse Resp BP Pulse Ox
97.8 F 62 18 104/54 96
10/20/24 15:08 10/20/24 15:08 10/20/24 15:08 10/20/24 15:08 10/20/24 15:08
I&O
10/19/24 10/20/24 10/21/24
06:59 06:59 06:59
Intake Total 1200 / 1200 300 / 300 960 / 960
Output Total 1525 / 1525 700 / 700
Balance -325 / -325 -400 / -400 960 / 960
Physical Exam
-
General: No Apparent Distress
HEENT: Normocephalic
Cardiac: Regular Rhythm
GI: Soft, Nontender and Nondistended
Neuro: Awake, Alert, Oriented and AO x 3
Psych: Calm
[2024-10-20 21:18] LABS: Glucose - Point of Care 256 mg/dl (70-99)
[2024-10-20] MEDS: NON-FORMULARY ITEM 1 DROP BOTH EYES (21:34)
[2024-10-20] MEDS: LANTUS 0.14 UNITS SC (21:34)
[2024-10-20] MEDS: XALATAN OPHTHALMIC SOLUTION 1 DROP BOTH EYES (21:35)
[2024-10-20 23:38] VITALS: BP 100/72
[2024-10-21] MEDS: SYNTHROID 75 MCG PO (05:36)
[2024-10-21 06:00] VITALS: BMI 24.5
[2024-10-21 07:15] LABS: Glucose - Point of Care 171 mg/dl (70-99)
[2024-10-21 07:30] VITALS: BP 117/59
[2024-10-21] MEDS: FLORINEF 0.2 MG PO (09:47)
[2024-10-21] MEDS: NOVOLOG FLEXPEN-MODERATE RESISTANCE 1 UNITS SC (09:47)
[2024-10-21] MEDS: ProAmatine 10 MG PO ×3 (09:47→17:27)
[2024-10-21] MEDS: MESTINON 60 MG PO ×3 (09:48→21:53)
[2024-10-21] MEDS: SODIUM CHLORIDE 1 GRAM PO ×2 (09:48→21:53)
[2024-10-21] MEDS: THERAGRAN 1 TABLET PO (09:48)
[2024-10-21] MEDS: ALPHAGAN 0.2% EYE DROPS 1 DROP BOTH EYES ×2 (09:48→21:53)
[2024-10-21] MEDS: PROTONIX 40 MG PO (09:48)
[2024-10-21] MEDS: PACERONE 200 MG PO (09:48)
[2024-10-21] MEDS: TRUSOPT 2% OPHTHALMIC SOLUTION 1 DROP BOTH EYES ×2 (09:48→21:54)
--- NOTE | 2024-10-21 10:35 | CM ---
Spoke with patient's son, who stated that he is at [facility] and is going to ask someone to tour. He was advised that their staff is off today for the holiday and they won't be back until tomorrow to review the referral. He was advised that
they may not have a bed until next week. Patient's son stated that he did not want patient in the hospital over the weekend. He was encouraged to select alternate facilities, however, he declined stating that he would first like to determine if
patient can go to [facility].
Patient's son inquired about Home Health Care if he takes patient home. He was advised that they can be set up for patient prior to discharge. Patient's son stated that he will consider all options and then return call back to . Will f/u with
patient if no return call has been received by this afternoon.
Plan: Case management will continue to follow and assist with discharge planning. SNF vrs. VN.
[2024-10-21 12:11] LABS: Glucose - Point of Care 274 mg/dl (70-99)
[2024-10-21] MEDS: NOVOLOG FLEXPEN-MODERATE RESISTANCE 5 UNITS SC ×2 (12:26→17:26)
--- NOTE | 2024-10-21 14:41 | W.PN.HOSP.TC ---
Today's Communication/Plan
-
Ongoing disposition efforts. Skilled rehab versus home
Assessment / Plan
Assessment / Plan
74yo M with PMHx of CHF, miasthenia gravis,emphysema 2/2 former smoking, CHF, Afib on eliquis, DM came with SOB and generalized weakness, found orthostatic hypotension. Cannot exclude medication induced after previous hospitalization as well as lack
of Pyridostigmine.
A/P:
#Generalized fatigue
#Orthostatic hypotension
most likely deconditioning and medication chage with recent admission to another hospital for CHF and pneumonia
improving
TSH and ACTH stim test WNL
adjust meds
PT/OT
cont Midodrine/Florinef
BB stopped
Myasthenia gravis. No Pyridostigmine on admission meds - can be reason for orthostasis - restarted on 10/16/24. Patient without signs of MG crisis at this time, only symptomatic with lightheadedness on upside position
#JIMMIE on admission
most likely 2/2 recent change in meds
resolved with IVF
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
Pulm consult
Bronchodilations
remains not hypoxic on RA
#DM type 2 with unspecified complications
Accuchecks, Insulin SS, DM diet
#Acute urinary retention
hitchcock placed on 10/14/24
Successful trial of voiding on 10/17. Monitor for recurrent retention
#MARY
GI consult: outpatient w/u
IV Iron
#HFpEF, chronic
Card consult
#Afib, unspecified
#Hypothyroidism
#GERD
#CAD, stable
#SSS s/p PPM
#HLD
#HX Myasthenia Gravis on Pyridostigmine
Cont home meds
Restarted Pyridostigmine bromide 180 mg (was ER at home) -now 60Mg TID while hospitalised
DVT ppx Xarelto
Full code
I have spent at least 58min reviewing chart, test results and providing direct patient care
Anticipated Discharge: Within 24 hours
Subjective/Interval History
-
Date of Service: October 21, 2024
Objective Data
-
Vital Signs:
Vital Signs
Temp Pulse Resp BP Pulse Ox
98 F 75 16 103/62 94
10/21/24 07:30 10/21/24 12:26 10/21/24 07:30 10/21/24 12:26 10/21/24 07:30
I&O
10/20/24 10/21/24 10/22/24
06:59 06:59 06:59
Intake Total 300 / 300 960 / 960 480 / 480
Output Total 700 / 700 330 / 330 500 / 500
Balance -400 / -400 630 / 630 -20 / -20
Physical Exam
-
General: No Apparent Distress
HEENT: Normocephalic
Cardiac: Regular Rhythm
GI: Soft, Nontender and Nondistended
Neuro: Awake, Alert, Oriented and AO x 3
Psych: Calm
[2024-10-21 15:26] VITALS: BP 99/45
[2024-10-21 16:37] LABS: Glucose - Point of Care 252 mg/dl (70-99)
[2024-10-21] MEDS: XARELTO 20 MG PO (17:26)
[2024-10-21] MEDS: LIPITOR 20 MG PO (17:27)
[2024-10-21 21:37] LABS: Glucose - Point of Care 72 mg/dl (70-99)
[2024-10-21] MEDS: LANTUS SC (21:52)
[2024-10-21] MEDS: NON-FORMULARY ITEM 1 DROP BOTH EYES (21:54)
[2024-10-21] MEDS: XALATAN OPHTHALMIC SOLUTION 1 DROP BOTH EYES (21:54)
[2024-10-21 23:31] VITALS: BP 89/54
[2024-10-22 02:36] LABS: Glucose - Point of Care 149 mg/dl (70-99)
[2024-10-22] MEDS: SYNTHROID 75 MCG PO (05:02)
[2024-10-22 05:07] VITALS: BMI 24.4
[2024-10-22 07:25] VITALS: BP 80/52
[2024-10-22 08:19] LABS: Glucose - Point of Care 153 mg/dl (70-99)
[2024-10-22] MEDS: NOVOLOG FLEXPEN-MODERATE RESISTANCE 1 UNITS SC (08:58)
[2024-10-22] MEDS: ALPHAGAN 0.2% EYE DROPS 1 DROP BOTH EYES (08:58)
[2024-10-22] MEDS: TRUSOPT 2% OPHTHALMIC SOLUTION 1 DROP BOTH EYES (08:58)
[2024-10-22] MEDS: PROTONIX 40 MG PO (08:59)
[2024-10-22] MEDS: THERAGRAN 1 TABLET PO (08:59)
[2024-10-22] MEDS: ProAmatine 10 MG PO ×2 (08:59→12:38)
[2024-10-22] MEDS: FLORINEF 0.2 MG PO (08:59)
[2024-10-22] MEDS: PACERONE 200 MG PO (08:59)
[2024-10-22] MEDS: SODIUM CHLORIDE 1 GRAM PO (08:59)
[2024-10-22] MEDS: MESTINON 60 MG PO ×2 (08:59→15:57)
[2024-10-22 11:00] VITALS: BP 80/46
--- NOTE | 2024-10-22 11:55 | CM ---
Addendum entered by PEBBLES Puente 10/22/24 15:44:
Placed a call to [employer] and spoke with a career services representative named, Amie, who reviewed clinical and issued auth# [id number] 5 days skilled, NRD 10/26-review to be called , . This information provided to Glenny in admissions. RN, attending,
medical clerk, patient and family aware. Son to transport.
Original Note:
Spoke with Glenny in admissions from [facility] this morning. She stated that she can accept patient today. # for report [phone].
NPI #s for authorization [facility] [id number] for [id number]
Plan: Case management will continue to follow and assist with discharge planning. Hopeful transfer to SNF once auth obtained.
[2024-10-22 12:31] LABS: Glucose - Point of Care 308 mg/dl (70-99)
[2024-10-22] MEDS: NOVOLOG FLEXPEN-MODERATE RESISTANCE 7 UNITS SC (12:37)
[2024-10-22 14:12] VITALS: BP 110/65; BP 115/61; BP 115/65; PULSE 96
[2024-10-22 14:42] VITALS: BP 110/65; BP 115/61; BP 115/65; PULSE 96; O2SAT 96
--- NOTE | 2024-10-22 15:09 | W.PN.HOSP.TC ---
Today's Communication/Plan
-
Pending placement to long term facility
Assessment / Plan
Assessment / Plan
74yo M with PMHx of CHF, miasthenia gravis,emphysema 2/2 former smoking, CHF, Afib on eliquis, DM came with SOB and generalized weakness, found orthostatic hypotension. Cannot exclude medication induced after previous hospitalization as well as lack
of Pyridostigmine.
A/P:
#Generalized fatigue
#Orthostatic hypotension
most likely deconditioning and medication chage with recent admission to another hospital for CHF and pneumonia
improving
TSH and ACTH stim test WNL
adjust meds
PT/OT
cont Midodrine/Florinef
BB stopped
Myasthenia gravis. No Pyridostigmine on admission meds - can be reason for orthostasis - restarted on 10/16/24. Patient without signs of MG crisis at this time, only symptomatic with lightheadedness on upside position
#JIMMIE on admission
most likely 2/2 recent change in meds
resolved with IVF
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
Pulm consult
Bronchodilations
remains not hypoxic on RA
#DM type 2 with unspecified complications
Accuchecks, Insulin SS, DM diet
#Acute urinary retention
hitchcock placed on 10/14/24
Successful trial of voiding on 10/17. Monitor for recurrent retention
#MARY
GI consult: outpatient w/u
IV Iron
#HFpEF, chronic
Card consult
#Afib, unspecified
#Hypothyroidism
#GERD
#CAD, stable
#SSS s/p PPM
#HLD
#HX Myasthenia Gravis on Pyridostigmine
Cont home meds
Restarted Pyridostigmine bromide 180 mg (was ER at home) -now 60Mg TID while hospitalised
DVT ppx Xarelto
Full code
I have spent at least 58min reviewing chart, test results and providing direct patient care
Anticipated Discharge: Within 24 hours
Subjective/Interval History
-
Date of Service: October 22, 2024
Objective Data
-
Vital Signs:
Vital Signs
Temp Pulse Resp BP Pulse Ox
97.3 F 71 16 99/60 94
10/22/24 07:25 10/22/24 12:38 10/22/24 07:25 10/22/24 12:38 10/22/24 07:25
I&O
10/21/24 10/22/24 10/23/24
06:59 06:59 06:59
Intake Total 960 / 960 1680 / 1680
Output Total 330 / 330 700 / 700
Balance 630 / 630 980 / 980
Physical Exam
-
General: No Apparent Distress
HEENT: Normocephalic
Cardiac: Regular Rhythm
GI: Soft, Nontender and Nondistended
Neuro: Awake, Alert, Oriented and AO x 3
Psych: Calm
--- NOTE | 2024-10-22 15:27 | W.DS.TRANS ---
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
-
Discharge Instructions:
Discharge Diagnosis/Procedures Neurogenic orthostasis.
Myasthenia gravis.
Acute kidney injury.
Diabetes
History of retention.
Heart failure preserved EF.
Paroxysmal A-fib
Hypothyroidism
CIDP
Sick sinus syndrome status post pacemaker.
Dyslipidemia
Diet Diabetic, Carb Controlled
Instructions:
Stand-Alone Forms:
Changes to Home Medications: Yes
Discharge Medications:
DC Medications w/original date entered in [employer]
amiodarone 200 mg tablet (Pacerone) 200 mg PO DAILY Arrhythmia 05/25/21
atorvastatin 20 mg tablet 20 mg PO QPM High cholesterol 05/25/21
levothyroxine 75 mcg tablet 75 mcg PO DAILY Thyroid 05/25/21
magnesium oxide 400 mg PO BID Supplement ##0 05/25/21
insulin glargine 100 unit/mL (3 mL) subcutaneous pen (Lantus Solostar U-100 Insulin) 14 units SC HS Diabetes 11/07/23
rivaroxaban 20 mg tablet (Xarelto) 20 mg PO QPM Blood Clot Prevention/Tx 11/07/23
brimonidine 0.2 % eye drops 1 drp BOTH EYES BID Eye Condition 10/11/24
cholecalciferol (vitamin D3) 50 mcg (2,000 unit) tablet (Vitamin D3) 50 mcg PO DAILY Supplement 10/11/24
dorzolamide 2 % eye drops 1 drp BOTH EYES BID Eye Condition 10/11/24
ferrous sulfate 325 mg (65 mg iron) tablet 325 mg PO DAILY Supplement 10/11/24
latanoprost 0.005 % eye drops 1 drp BOTH EYES HS Eye Condition 10/11/24
netarsudil 0.02 % eye drops (Rhopressa) 1 drp BOTH EYES HS Eye Condition 10/11/24
semaglutide 1 mg/dose (4 mg/3 mL) subcutaneous pen injector (Ozempic) 1 mg SC SA Diabetes 10/11/24
Held on 10/22/24. Instructions: Resume on 11/05/24.
sennosides 8.6 mg tablet (senna) 8.6 mg PO DAILYPRN PRN constipation 10/11/24
sodium chloride 1 gram tablet 1,000 mg PO BID Supplement 10/11/24
fludrocortisone 0.1 mg tablet 0.2 mg (2 x 0.1 mg) PO DAILY #30 tabs 10/22/24
midodrine 5 mg tablet 10 mg (2 x 5 mg) PO TID@0800,1300,1800 #90 tabs 10/22/24
pantoprazole 40 mg tablet,delayed release 40 mg PO DAILY #30 tabs 10/22/24
pyridostigmine bromide 60 mg tablet 60 mg PO TID #90 tabs 10/22/24
Home Medication Changes
Metoprolol discontinued due to orthostasis.
Midodrine dose increased to 10 mg 3 times daily
Florinef initiated.
Pending Results: No
--- NOTE | 2024-10-22 15:58 | PTCARENOTE ---
Called Alexander Suarez to give report for Primary RN and there was no answer.
[2024-10-22 16:00] LABS: Glucose - Point of Care 286 mg/dl (70-99)
[2024-10-22] MEDS: NOVOLOG FLEXPEN-MODERATE RESISTANCE 5 UNITS SC (16:00)
== END 2024-10-22 16:25 | DRG 56 ==
LOC: 4 EAST ACU 16:34
PROVIDERS: ADMITTING PHYSICIAN Internal Medicine; ATTENDING PHYSICIAN Internal Medicine; CONSULT PHYSICIAN Internal Medicine; CONSULT PHYSICIAN Internal Medicine Cardiovascular Disease; CONSULT PHYSICIAN Internal Medicine Gastroenterology; EMERGENCY PHYSICIAN Student in an Organized Health Care Education/Training Program; FAMILY PHYSICIAN Nurse Practitioner Gerontology
PROC: 4B02XTZ Measurement of Cardiac Defibrillator, External Approach (ICD-10-PCS; 2024-10-12)
PROC: 0T9B70Z Drainage of Bladder with Drainage Device, Via Natural or Artificial Opening (ICD-10-PCS; 2024-10-14)
DX: G90.3 Multi-system degeneration of the autonomic nervous system (principal); J96.21 Acute and chronic respiratory failure with hypoxia; I50.32 Chronic diastolic (congestive) heart failure; N17.9 Acute kidney failure, unspecified; I48.0 Paroxysmal atrial fibrillation; E78.00 Pure hypercholesterolemia, unspecified; I11.0 Hypertensive heart disease with heart failure; E11.65 Type 2 diabetes mellitus with hyperglycemia; I25.10 Atherosclerotic heart disease of native coronary artery without angina pectoris; G70.00 Myasthenia gravis without (acute) exacerbation; D64.9 Anemia, unspecified; K21.9 Gastro-esophageal reflux disease without esophagitis; F32.A Depression, unspecified; J43.2 Centrilobular emphysema; E03.9 Hypothyroidism, unspecified; R33.9 Retention of urine, unspecified; Z60.3 Acculturation difficulty; Z95.810 Presence of automatic (implantable) cardiac defibrillator; Z87.891 Personal history of nicotine dependence; Z79.4 Long term (current) use of insulin; Z79.01 Long term (current) use of anticoagulants; Z79.890 Hormone replacement therapy; Z79.85 Long-term (current) use of injectable non-insulin antidiabetic drugs; Z87.01 Personal history of pneumonia (recurrent); Z99.81 Dependence on supplemental oxygen; Z87.11 Personal history of peptic ulcer disease; Z11.52 Encounter for screening for COVID-19; I25.2 Old myocardial infarction
CPT/HCPCS: 71275; 80048; 80053; 81003; 81015; 82533; 82607; 82728; 82746; 82947; 82962; 83036; 83540; 83550; 83880; 84443; 84484; 85025; 87502; 87811; 93005; 93306; 94640; 96360; 97110; 97116; 97162; 97166; 97530; 99285; J2916; Q9967

== ENCOUNTER → 2024-10-28 09:15 | Outpatient (REF) | payer OTHER, SELFPAY ==
[2024-10-28 10:21] LABS: % Basophils 0.2 % (0-2); % Eosinophils 1.8 % (0-6); % Immature Granulocytes 0.3 % (0-0.5); % Lymphocytes 29.1 % (20.5-51.1); % Monocytes 7.5 % (1.7-9.3); % Neutrophils 61.1 % (42.2-75.2); Absolute Eosinophils 0.1 10^3/uL (0-0.7); Absolute Lymphocytes 1.9 10^3/uL (1.2-3.4); Absolute Monocytes 0.5 10^3/uL (0.1-0.6); Hematocrit 30.1 % (39.0-52.0); Mean Corp Hgb Conc. 33.2 g/dL (33.0-37.0); Mean Corpuscular Hgb 30.6 pg (27.0-31.0); Mean Platelet Volume 11.8 fL (7.4-10.4); Nucleated Red Blood Cells % 0 % (-); Platelet Count 199 10^3/uL (130-400); Red Blood Cell Count 3.27 10^6/uL (4.70-6.10); White Blood Cell Count 6.5 10^3/uL (4.8-10.8)
[2024-10-28 11:56] LABS: ALT (SGPT) 90 U/L (0-50); AST (SGOT) 48 U/L (17-59); Albumin 3.2 g/dl (3.5-5.0); Alkaline Phosphatase 117 U/L (38-126); Blood Urea Nitrogen 20 mg/dl (9-20); Calcium 8.4 mg/dl (8.4-10.2); Carbon Dioxide 30 mmol/L (22-30); Chloride 105 mmol/L (98-107); Glucose 176 mg/dl (70-99); HDL Cholesterol 43 mg/dl; Iron 82 ug/dl (49-181); LDL Cholesterol, Calculated 67 mg/dl; Sodium 141 mmol/L (135-145); Total Bilirubin 0.4 mg/dl (0.2-1.3); Total Cholesterol 134 mg/dl (50-199); Total Protein 5.7 g/dl (6.3-8.2); Triglyceride 121 mg/dl (10-149); Very Low Density Lipoprotein 24 mg/dl (0-30); eGFR > 60.00
[2024-10-28 12:06] LABS: Percent Saturation 29 % (20-50); Potassium 2.4 mmol/L (3.5-5.1); Total Iron Binding Capacity 279 ug/dl (261-462)
[2024-10-28 14:33] LABS: TSH 1.83 uIU/ml (0.47-4.68)
[2024-10-28 14:53] LABS: Vitamin B12 374 pg/ml (239-931)
== END ==
LOC: OLABN 09:15
PROVIDERS: ATTENDING PHYSICIAN Student in an Organized Health Care Education/Training Program
DX: D50.9 Iron deficiency anemia, unspecified (principal); G61.81 Chronic inflammatory demyelinating polyneuritis; E78.5 Hyperlipidemia, unspecified; E03.9 Hypothyroidism, unspecified; E55.9 Vitamin D deficiency, unspecified; E53.1 Pyridoxine deficiency; M62.81 Muscle weakness (generalized); E10.29 Type 1 diabetes mellitus with other diabetic kidney complication
CPT/HCPCS: 36415; 80053; 80061; 82306; 82607; 82728; 83540; 83550; 84207; 84443; 85025

== ENCOUNTER → 2024-11-01 10:13 | Outpatient (REF) | payer OTHER, SELFPAY ==
[2024-11-01 11:51] LABS: Blood Urea Nitrogen 26 mg/dl (9-20); Calcium 8.8 mg/dl (8.4-10.2); Carbon Dioxide 29 mmol/L (22-30); Chloride 104 mmol/L (98-107); Glucose 225 mg/dl (70-99); Sodium 141 mmol/L (135-145); eGFR > 60.00
== END ==
LOC: OLABN 10:13
PROVIDERS: ATTENDING PHYSICIAN Student in an Organized Health Care Education/Training Program
DX: E87.6 Hypokalemia (principal)
CPT/HCPCS: 36415; 80048

== ENCOUNTER → 2024-11-08 11:35 | Outpatient (REF) | payer OTHER, SELFPAY ==
[2024-11-08 12:35] LABS: Blood Urea Nitrogen 21 mg/dl (9-20); Calcium 9.3 mg/dl (8.4-10.2); Carbon Dioxide 30 mmol/L (22-30); Chloride 101 mmol/L (98-107); Glucose 180 mg/dl (70-99); Potassium 3.0 mmol/L (3.5-5.1); Sodium 139 mmol/L (135-145); eGFR > 60.00
== END ==
LOC: OLABN 11:35
PROVIDERS: ATTENDING PHYSICIAN Student in an Organized Health Care Education/Training Program
DX: E87.6 Hypokalemia (principal)
CPT/HCPCS: 36415; 80048

== ENCOUNTER → 2024-11-11 10:21 | Outpatient (REF) | payer OTHER, SELFPAY ==
[2024-11-11 11:24] LABS: Blood Urea Nitrogen 22 mg/dl (9-20); Calcium 8.4 mg/dl (8.4-10.2); Carbon Dioxide 28 mmol/L (22-30); Chloride 105 mmol/L (98-107); Glucose 255 mg/dl (70-99); Potassium 3.4 mmol/L (3.5-5.1); Sodium 139 mmol/L (135-145); eGFR > 60.00
== END ==
LOC: OLABN 10:21
PROVIDERS: ATTENDING PHYSICIAN Student in an Organized Health Care Education/Training Program
DX: E87.6 Hypokalemia (principal)
CPT/HCPCS: 36415; 80048